=== PATIENT | female | born 1945 | race Caucasian/White ===

== ENCOUNTER 2019-04-07 09:33 | Inpatient (IN) ==
[2019-04-07 11:50] LABS: BASO# 0.09 X1000 (0.0-0.2); BASO% 0.5 % (0.0-0.8); EOS# 0.35 X1000 (0.0-0.7); EOS% 1.8 % (0.0-10.0); HEMATOCRIT 30.3 % (37.0-47.0); HEMOGLOBIN 9.1 g/dL (12.0-16.0); IMM GRAN# 0.11 X1000 (0.0-0.04); IMM GRAN% 0.6 % (0.0-0.5); LYMPH# 0.72 X1000 (1.2-3.4); LYMPH% 3.8 % (20.5-51.1); MCH 23.5 PG (27-31); MCV 78.1 FL (81-99); MONO# 0.89 X1000 (0.11-0.59); MONO% 4.7 % (1.7-9.3); MPV 9.2 FL (7.4-10.4); NEUT# 16.81 X1000 (1.4-6.5); NEUT% 88.6 % (42.2-75.2); PLT 472 X1000 (130-400); RBC 3.88 XMIL (4.2-5.4); RDW 13.5 % (11.5-14.5); WBC 18.97 X1000 (4.8-10.8)
--- NOTE | 2019-04-07 11:53 | EKG Report ---
Test Performed on : 04/07/2019 10:48:29 AM Test Reason : SYNCOPE Blood Pressure : / mmHG Vent. Rate : 076 BPM Atrial Rate : 076 BPM P-R Int : 226 ms QRS Dur : 134 ms QT Int : 366 ms P-R-T Axes : 051 -52 082 degrees QTc Int : 411 ms Sinus rhythm. with 1st degree AV block. with occasional premature ventricular complexes. Left axis deviation Left bundle branch block Abnormal ECG When compared with ECG of 26-FEB-2018 14:06, premature ventricular complexes. are now present MO interval has increased Vent. rate has decreased BY 44 BPM Left bundle branch block is now present Unconfirmed Result
[2019-04-07 11:59] LABS: ACETONE SERUM NEGATIVE (NEGATIVE)
--- NOTE | 2019-04-07 12:00 | Diag Imaging Result Doc PS360 ---
EXAM: CHEST-PORTABLE HISTORY: SYNCOPE,FEVER TECHNIQUE: Single view COMPARISON: 02/26/2018 FINDINGS: Interval development of several lung nodules. There are also infiltrates in the lower right lung. Heart is mildly prominent. No pleural effusions identified. IMPRESSION: Lung nodules and infiltrates. A CT is recommended. Electronically signed by Warren Alberto 04/07/2019 11:58 AM
[2019-04-07 12:05] LABS: BE 1.4 mmoll (-2.0-2.0); BLOOD TYPE VENOUS; HCO3-(ACT) 24.6 mmoll (22-27); PCO2(98.6) 44 mmHg (40-60); PO2(98.6) 19 mmHg (30-55); SAMPLE BLOOD; SAO2 23.6 % (40.0-85.0); pH(98.6) 7.39 (7.32-7.43)
[2019-04-07 12:07] LABS: AGAP 14; ALBUMIN 3.3 g/dL (3.5-5.0); ALKALINE PHOSPHATASE 144 U/L (32-104); BUN 45 mg/dL (8-22); CALCIUM 9.5 mg/dL (8.8-10.2); CHLORIDE 99 mmol/L (98-107); COSMO 304; ESTIMATED GFR 24; GOT 14 U/L (10-30); GPT 14 U/L (10-36); POTASSIUM 5.5 mmol/L (3.5-5.1); SODIUM 137 mmol/L (136-145); TCO2 24 mmol/L (25-35); TOTAL BILIRUBIN 0.17 mg/dL (0.20-1.00); TOTAL PROTEIN 6.6 g/dL (6.3-8.3)
[2019-04-07 12:22] LABS: GLUCOSE 423 mg/dL (70-104)
[2019-04-07] MEDS ORDERED: ROCEPHIN 1 GM in NS 50 ML IV ONE (12:35)
[2019-04-07] MEDS ORDERED: ZITHROMAX PO ONE (12:35)
[2019-04-07] MEDS ORDERED: HUMULIN R SUBQ ONE (12:35)
[2019-04-07] MEDS ORDERED: NS 500 ML IV ONE (12:36)
[2019-04-07 12:58] LABS: URINE SOURCE CLEAN CATCH
[2019-04-07 13:11] LABS: BILIRUBIN URINE NEGATIVE (NEGATIVE); BLOOD URINE NEGATIVE (NEGATIVE); COLOR YELLOW; GLUCOSE URINE >1000 mg/dL (NEGATIVE); KETONE URINE NEGATIVE (NEGATIVE); LEUKOCYTES URINE NEGATIVE (NEGATIVE); NITRITE URINE NEGATIVE (NEGATIVE); PROTEIN URINE TRACE mg/dL (NEGATIVE); TURBIDITY URINE CLEAR (CLEAR); UROBILINOGEN URINE NORMAL (NORMAL)
[2019-04-07 13:12] LABS: UR EPITHELIAL CELLS <10 /HPF (<10); URINE BACTERIA NEGATIVE /HPF; URINE RBC <10 /HPF (<10); URINE WBC <10 /HPF (<10)
[2019-04-07 13:33] LABS: UR AMPHETAMINES QUAL NONE DETECTED (NONE DETECT); UR BARBITUATES QUAL NONE DETECTED (NONE DETECT); UR BENZODIAZEPIN QUAL NONE DETECTED (NONE DETECT); UR CANNABINOIDS QUAL NONE DETECTED (NONE DETECT); UR COCAINE QUAL NONE DETECTED (NONE DETECT); UR METHADONE QUAL NONE DETECTED (NONE DETECT); UR OPIATES QUAL NONE DETECTED (NONE DETECT); UR OXYCODONE QUAL NONE DETECTED (NONE DETECT); UR PCP QUAL NONE DETECTED (NONE DETECT)
--- NOTE | 2019-04-07 14:20 | PROVIDER DOCUMENTATION ---
This chart was entered by Jess Beach Scribe, acting as scribe for Po Ibarra MD. HPI-Syncope/Dizziness - General Chief Complaint: Near Syncope Stated Complaint: WEAKNESS Time Seen by Provider: 04/07/19 11:24 Source: patient Allergies/Adverse Reactions: Patient Allergies Allergy/AdvReac Type Severity Reaction Status Date / Time No Known Allergies Allergy Verified 02/26/18 13:58 Home Medications: Home Medication List Medication Instructions Recorded Confirmed Last Taken Type Aspirin [Aspir-Low] 1 tab PO DAILY 10/17/17 02/27/18 02/27/18 05:15 History Cholecalciferol (Vit D3) [Vitamin 5,000 unit PO DAILY 10/17/17 02/27/18 02/27/18 05:15 History D] Levothyroxine [Synthroid] 200 microgm PO DAILY 10/17/17 02/27/18 02/27/18 05:15 History Simvastatin 20 mg PO HS 10/17/17 02/27/18 02/26/18 20:00 History Furosemide [Lasix] 40 mg PO DAILY #30 tab 10/22/17 02/27/18 02/27/18 05:30 Rx Cyanocobalamin (Vitamin B-12) 1,000 mcg PO BID 11/13/17 02/27/18 02/27/18 05:15 History [Vitamin B12] Isosorbide Dinitrate [Isordil] 20 tab PO TID 11/13/17 02/27/18 02/27/18 05:15 History Hydralazine [Apresoline] 25 mg PO TID 11/30/17 02/27/18 02/27/18 05:15 History Digoxin 125 mcg PO DAILY 01/21/18 02/27/18 02/27/18 05:15 History Spironolactone 0.5 tab PO DAILY 01/21/18 02/27/18 02/27/18 05:20 History Glipizide [Glucotrol] 5 mg PO DAILY 01/22/18 02/27/18 02/27/18 05:15 History Clobetasol Propionate/Emoll 15 gm TP BID 02/26/18 02/27/18 02/27/18 05:15 History [Clobetasol Emollient 0.05% Crm] Carvedilol [Coreg] 3.125 mg PO BID #60 tablet 02/27/18 Unknown Rx - History of Present Illness-Syncope/Dizzy Nature of Presenting Problem: Patient is a 74 year old female who presents to the ED via EMS after having a syncopal episode. Patient states she was sitting on the toilet and started to get lightheaded. Patient's states patient had a few seconds of LOC. Denies falling. Patient reports having cough and nasal drainage for the last month. Prior Episodes: reports: single episode today Onset/Duration: reports: this morning Timing: reports: gone now Position/Activity at time of episode: reports: sitting Symptoms prior to episode: reports: lightheaded Context: reports: lost consciousness Loss of Consciousness: brief (seconds) Location of injury. (If syncope resulted in an injury.): reports: none Current Symptoms: reports: none/feels normal Recently Seen Here or By Another Healthcare Provider: No Review of Systems - Adult - REVIEW OF SYSTEMS - ADULT Constitutional: reports: no symptoms reported. denies: chills, fever, fatique Eyes: reports: no symptoms reported Ears, Nose, Mouth & Throat: reports: see HPI, sinus problem (drainage). denies: ear pain, nose pain, throat pain Cardiovascular: reports: no symptoms reported Respiratory: reports: see HPI, cough. denies: shortness of breath, wheezing Gastrointestinal: reports: no symptoms reported Genitourinary: reports: no symptoms reported Musculoskeletal: reports: no symptoms reported Integumentary: reports: no symptoms reported Neurological: reports: no symptoms reported Psychiatric: reports: no symptoms reported Endocrine: reports: no symptoms reported Hematologic/Lymphatic: reports: no symptoms reported Allergic/Immunologic: reports: no symptoms reported All Other Systems: Reviewed and Negative Past History - Adult - PAST MEDICAL HISTORY-ADULT Review of Records: reports: Old Records Reviewed, Social history reviewed & non- contributory. Major Childhood Illnesses: reports: denies history Cardiovascular: reports: CHF, HTN Respiratory: reports: denies history Gastrointestinal: reports: denies history Obstetrical/Gynecological: reports: denies history Genitourinary: reports: denies history Musculoskeletal: reports: denies history Neurological: reports: denies history Endocrine/Immune: reports: Diabetes, thyroid disorder Other Conditions: reports: denies history - PRIOR SURGERIES/PROCEDURES Surgical/Procedure History: reports: reviewed, not pertinent, tonsillectomy - IMMUNIZATION STATUS Childhood Immunizations: See Nurse Assessment Flu Vaccine: See Nurse Assessment - FAMILY HISTORY Family History: reviewed, not pertinent - SOCIAL HISTORY Smoking: denies Substance Use: denies Living Situation: family Physical Exam-General - PHYSICAL EXAM-ADULT Initial Vital Signs Reviewed: Yes - CONSTITUTIONAL General Appearance: alert, no apparent distress. negative: lethargic - EYES Eyes: PERRL/EOMI - HEAD, EARS, NOSE, MOUTH & THROAT HENMT: normocephalic/atraumatic, moist mucous membranes. negative: angioedema - NECK Neck: full range of motion, supple - RESPIRATORY Respiratory: chest non-tender, lungs clear, normal breath sounds. negative: crackles, wheezing - CARDIOVASCULAR Cardiovascular: normal peripheral pulses, regular rate, rhythm. negative: tachycardia - GASTROINTESTINAL (ABDOMEN) Abdominal Exam: normal bowel sounds, non tender, soft. negative: guarding - MUSCULOSKELETAL Extremity: non-tender, normal inspection. negative: deformity, erythema, swelling - SKIN Integumentary: normal color, normal turgor, warm/dry. negative: diaphoresis, jaundice, rash - NEUROLOGIC Neurologic: rn wound care II-XII nml as tested, grossly normal. negative: aphasia, facial droop - PSYCHIATRIC Psych/Mental Status: normal mood/affect, oriented x 3. negative: anxious Progress - PLAN OF CARE/RESULTS Progress/Plan/Lab Results: Vital Signs - 8 hr 04/07/19 10:04 04/07/19 10:05 04/07/19 10:10 Temperature 98.1 F Pulse Rate 82 Respiratory Rate 17 Blood Pressure 107/39 107/39 O2 Sat by Pulse Oximetry 98 98 98 04/07/19 10:15 04/07/19 10:30 04/07/19 10:45 Temperature Pulse Rate Respiratory Rate Blood Pressure O2 Sat by Pulse Oximetry 98 98 93 L 04/07/19 11:00 04/07/19 11:15 04/07/19 11:30 Temperature Pulse Rate 77 75 79 Respiratory Rate 13 20 22 Blood Pressure O2 Sat by Pulse Oximetry 97 98 98 04/07/19 11:45 04/07/19 12:00 04/07/19 12:15 Temperature Pulse Rate 68 74 75 Respiratory Rate 18 20 14 Blood Pressure O2 Sat by Pulse Oximetry 99 98 100 04/07/19 12:30 04/07/19 12:45 04/07/19 13:00 Temperature Pulse Rate 77 77 75 Respiratory Rate 28 H 15 21 Blood Pressure O2 Sat by Pulse Oximetry 97 99 98 04/07/19 13:15 04/07/19 13:30 04/07/19 13:45 Temperature Pulse Rate 76 78 75 Respiratory Rate 14 19 19 Blood Pressure O2 Sat by Pulse Oximetry 100 99 100 04/07/19 13:55 Temperature Pulse Rate 77 Respiratory Rate 20 Blood Pressure 122/48 O2 Sat by Pulse Oximetry 98 Laboratory Results - last 24 hr 04/07/19 04/07/19 04/07/19 11:22 11:25 11:25 WBC 18.97 H RBC 3.88 L Hgb 9.1 L Hct 30.3 L MCV 78.1 L MCH 23.5 L MCHC 30.0 L RDW Std Deviation 13.5 Plt Count 472 H MPV 9.2 Immature Gran % (Auto) 0.6 H Neut % (Auto) 88.6 H Lymph % (Auto) 3.8 L Barren % (Auto) 4.7 Eos % (Auto) 1.8 Baso % (Auto) 0.5 Immature Gran # (Auto) 0.11 H Neut # (Auto) 16.81 H Lymph # (Auto) 0.72 L Barren # (Auto) 0.89 H Eos # (Auto) 0.35 Baso # (Auto) 0.09 Specimen Type VBG pH VBG pCO2 VBG pO2 VBG HCO3 VBG O2 Saturation VBG Base Excess VBG Lactate Sodium 137 Potassium 5.5 H Chloride 99 Carbon Dioxide 24 L Anion Gap 14 BUN 45 H Creatinine 2.0 H Estimated GFR/1.73 m2 24 BUN/Creatinine Ratio 23 Glucose 423 H* POC Glucose 384 H Calculated Osmolality 304 Calcium 9.5 Total Bilirubin 0.17 L AST 14 ALT 14 Alkaline Phosphatase 144 H Total Protein 6.6 Albumin 3.3 L Globulin 3.3 Albumin/Globulin Ratio 1.0 Urine Source Urine Color Urine Turbidity Urine pH Ur Specific Desmet Urine Protein Ur Glucose (Stick) Ur Ketones (Stick) Urine Blood Urine Nitrite Urine Bilirubin Urobilinogen Dipstick Urine Leukocytes Urine WBC (Auto) Urine RBC (Auto) U Epithel Cells (Auto) Urine Bacteria (Auto) Urine Opiates Screen Ur Oxycodone Screen Ur Methadone, Qual Ur Barbiturates Screen Ur Phencyclidine Scrn Ur Amphetamines Screen U Benzodiazepines Scrn Urine Cocaine Screen U Cannabinoids Screen Acetone Level NEGATIVE 04/07/19 04/07/19 04/07/19 11:56 12:43 12:43 WBC RBC Hgb Hct MCV MCH MCHC RDW Std Deviation Plt Count MPV Immature Gran % (Auto) Neut % (Auto) Lymph % (Auto) Barren % (Auto) Eos % (Auto) Baso % (Auto) Immature Gran # (Auto) Neut # (Auto) Lymph # (Auto) Barren # (Auto) Eos # (Auto) Baso # (Auto) Specimen Type VENOUS VBG pH 7.39 VBG pCO2 44 VBG pO2 19 L VBG HCO3 24.6 VBG O2 Saturation 23.6 L VBG Base Excess 1.4 VBG Lactate 2.00 Sodium Potassium Chloride Carbon Dioxide Anion Gap BUN Creatinine Estimated GFR/1.73 m2 BUN/Creatinine Ratio Glucose POC Glucose Calculated Osmolality Calcium Total Bilirubin AST ALT Alkaline Phosphatase Total Protein Albumin Globulin Albumin/Globulin Ratio Urine Source CLEAN CATCH Urine Color YELLOW Urine Turbidity CLEAR Urine pH 6.0 Ur Specific Desmet 1.020 Urine Protein TRACE A Ur Glucose (Stick) >1000 A Ur Ketones (Stick) NEGATIVE Urine Blood NEGATIVE Urine Nitrite NEGATIVE Urine Bilirubin NEGATIVE Urobilinogen Dipstick NORMAL Urine Leukocytes NEGATIVE Urine WBC (Auto) <10 Urine RBC (Auto) <10 U Epithel Cells (Auto) <10 Urine Bacteria (Auto) NEGATIVE Urine Opiates Screen NONE DETECTED Ur Oxycodone Screen NONE DETECTED Ur Methadone, Qual NONE DETECTED Ur Barbiturates Screen NONE DETECTED Ur Phencyclidine Scrn NONE DETECTED Ur Amphetamines Screen NONE DETECTED U Benzodiazepines Scrn NONE DETECTED Urine Cocaine Screen NONE DETECTED U Cannabinoids Screen NONE DETECTED Acetone Level Orders Category Date Time Status Cardiac Monitoring DIRECTED Care 04/07/19 11:38 Active Nursing- Obtain EKG ONCE Care 04/07/19 10:35 Active Saline Loc NOW Care 04/07/19 11:38 Active CHEST-PORTABLE [RAD] Stat Exams 04/07/19 11:39 Completed ACETONE SERUM [CHEM] Stat Lab 04/07/19 11:25 Completed BLOOD CULTURE [BLDCUL] Stat Lab 04/07/19 11:38 Ordered CBC WITH ELECTRONIC DIFF [HEME] Stat Lab 04/07/19 11:25 Completed COMPREHENSIVE METABOLIC PANEL [CHEM] Stat Lab 04/07/19 11:25 Completed URINALYSIS W/POSS RFLX CULT [URINALYSIS] Stat Lab 04/07/19 12:43 Completed URINE DRUG SCREEN Stat Lab 04/07/19 12:43 Completed VENOUS BLOOD GAS [RESP] Routine Lab 04/07/19 11:56 Completed 0.9% Sodium Chloride Inj [Ns] 500 ml Med 04/07/19 12:36 Discontinued IV 999 mls/hr Azithromycin [Zithromax] Med 04/07/19 12:35 Discontinued 500 mg PO NOW ONE CefTRIAXONE [Rocephin] 1 gm Med 04/07/19 12:35 Discontinued 0.9% Sodium Chloride Inj [Ns] 50 ml IV NOW Insulin Human Regular [Humulin R] Med 04/07/19 12:35 Discontinued 3 unit SUBQ NOW ONE EKG [EKG] Stat Ther 04/07/19 11:38 Draft Result Diagrams: 04/07/19 11:25 04/07/19 11:25 - EKG 1 Time of EKG reading by physician:: 10:48 EKG Read and Signed by:: Po Ibarra EKG Interpretation (*Must complete 3 of following elements*): Abnormal (rhythm - sinus rhythm with 1st degree AV block with occasional premature ventricular complexes) Rate: 76 [place]: left QRS: LBB Comments: abnormal ECG - XRAY 1 XRAY Study: Chest Impression: See EMR Report (EXAM: CHEST-PORTABLE HISTORY: SYNCOPE,FEVER TECHNIQUE: Single view COMPARISON: 02/26/2018 FINDINGS: Interval development of several lung nodules. There are also infiltrates in the lower right lung. Heart is mildly prominent. No pleural effusions identified. IMPRESSION: Lung nodules and infiltrates. A CT is recommended. Electronically signed by Warren Alberto 04/07/2019 11:58 AM 04/07/19 1158 Interpreting Physician: Warren Alberto MD Dictated Date/Time: 04/07/19 1159 cc: Po Ibarra MD; Jarred Rivera MD) - CONSULTS/PCP/HOSPITALIST Notification #1 *Consult/PCP/Hospitalist*: AMANDA Arreguin for Hospitalist Time Discussed: 14:03 Reason/Comments: Dr. Ibarra consulted with Kallie about patient Consult Disposition: Will see in ED, Admit (to HOSPITALIST SERVICE) Departure - Departure Date of Disposition Decision: 04/07/19 Time of Disposition Decision: 14:03 DIAGNOSIS: Pneumonia, Pulmonary nodules/lesions, multiple, Renal insufficiency, Leukocytosis, Anemia Disposition: ADMITTED INPATIENT 09 Certified Medical Emergency: Emergent Condition: Stable Referrals and Follow-Ups: Jarred Rivera MD [Primary Care Provider] - - Critical Care Note This patient required my direct & personal management of CC.: No Attestation - Physician/ KARTIK Attestation The physician spent face to face time with patient:: Yes Advanced Practice Provider documentation review:: Supervising physician onsite and consulted in the evaluation and care of this patient. The physician did have a face to face encounter with the patient. This chart was documented by the indicated scribe, (Jess Beach Scribe) and accurately reflects the services I performed and decisions made by me, Po Ibarra MD, as attested by the provider's signature.
[2019-04-07] MEDS: HUMALOG SUBQ SCH ×2 (16:00→21:37)
--- NOTE | 2019-04-07 17:57 | HISTORY AND PHYSICAL ---
HISTORY OF PRESENT ILLNESS: She was apparently sitting on the commode and was about to drink some [employer] Buc[employer] breakfast and the next thing she knew it was all over her lap. She does not remember. Her think she passed out for a very short time. Denied any tonic- clonic activity. Denied any focal neurologic problems. Did not notice any incontinence of bowel or bladder. No complaints of chest pain. She does not have any memory of the passing out. When she came to, she seemed to be fine. They brought her to the emergency room. PAST MEDICAL HISTORY: 1. Diabetes mellitus type 2. 2. Hyperlipidemia. 3. Hypertension. PAST SURGICAL HISTORY: I think the only surgery she has had is she had adenoidectomy when she was 17. ALLERGIES: No known drug allergies. FAMILY HISTORY: She does not know of any significant family history. Both of her parents had diabetes. SOCIAL HISTORY: Negative for alcohol or tobacco. Very attentive family. She lives in [place]. REVIEW OF SYSTEMS: General: No weight gain or loss. No fever or chills. HEENT: Unremarkable. No change in visual or hearing acuity. Respiratory: No increased work of breathing or dyspnea. Cardiovascular: No chest pain or tachy palpitation GI/: Unremarkable. Musculoskeletal/Neurologic: No focal complaints. PHYSICAL EXAMINATION: VITAL SIGNS: Temp 98.1 degrees, pulse 77, respirations 16, blood pressure 112/52. Height 5 feet 8 inches. HEENT: Pupils are equal and round. No rashes in oral or nasal mucosa. NECK: Supple. No thyromegaly. LUNGS: Clear in all lung [place]. CARDIOVASCULAR: Regular rhythm and rate without murmur or S3. Monitor appears to be in sinus rhythm. ABDOMEN: Soft. SKIN: Warm and dry. No skin rashes. LABORATORY DATA: White count is 18,970, hematocrit is 30, hemoglobin 9.1, platelet count 472,000. Sodium 137, potassium 5.5, chloride 99, BUN 45, creatinine 2.0, blood sugar 423, calcium was 9.5. AST 14, ALT 14, albumin 3.3. Urinalysis unremarkable. Negative acetone. Negative for opioids, oxycodone, methadone, barbiturates, phencyclidine, amphetamines, and benzodiazepines. Urinalysis was unremarkable. Venous blood gas, pH was 7.39, pCO2 44, PO2 was 19. Chest x-ray: There were some lung nodules and infiltrates appreciated and CT was recommended. She has complained of a cough now for a couple weeks and she was planning on going to the clinic. I think she saw Dr. Rivera about the cough this morning. ASSESSMENT AND PLAN: 1. Questionable syncopal episode or near syncopal episode. It sounds like she had a very short episode of syncope. Most likely it is vasovagal. She did not have heavy coughing this morning where during the episode and she was not straining hard on the commode, so we will watch. Will watch her blood pressure. We will check orthostatics. We will check blood pressure lying down, sitting up, and standing every shift. In looking at her home medications, her blood pressure is kind of marginal. Apparently, she takes hydralazine 1.5 tablets. I am not sure if that is a 50 or 25 mg tablet. We may need to back down on that. She is not on an DEEPTI inhibitor. 2. Diabetes mellitus. Sugars are elevated at this time, I think secondary to stress. We will follow pattern sugars. She is on glipizide 5 mg just once a day and we may want to consider adding metformin to that regimen, but she is on Lantus SoloStar 40 units subcu q.a.m. and then 20 units q.p.m. We will continue that for now. Put her on a diabetic diet. 3. History of congestive heart failure. I do not know the degree of that. In looking back on echocardiogram, she had an echocardiogram with Doppler in October 2017 and at that time aortic valve normal, mitral valve normal, tricuspid valve normal, pulmonic valve normal. There was no aortic stenosis. There was a mildly dilated left ventricle with systolic ejection fraction estimated at 35 to 40% and she had mild left ventricular hypertrophy and global hypokinesis. So, apparently she does have congestive heart failure with reduced ejection fraction. 4. She has chronic kidney disease. I see a CT scan looking at renal function, it was a negative exam; that was back on 10/18/2017. Her creatinine is 2.0. In looking back, that has been her baseline starting in September 2017. She had a creatinine of 0.8 back in the early part of September of 2015. Dr. Gilman is following her for that. Her volume status and electrolytes look good and I do not see any significant acidosis. 5. We will ask Pulmonary, at her request, to look for this chronic cough and the pulmonary nodules seen on the chest x-ray. I assume we probably need to pursue a CT scan. We probably ought to do it without contrast at this point because of her creatinine. cc: Carson Garnica MD
[2019-04-07] MEDS ORDERED: ROBITUSSIN-DM PO PRN (19:27)
[2019-04-07] MEDS: ZOCOR PO SCH (21:01)
[2019-04-07] MEDS: COREG PO SCH (21:02)
[2019-04-07] MEDS: LANTUS INSULIN SUBQ SCH (21:02)
--- NOTE | 2019-04-07 22:47 | Diag Imaging Result Doc PS360 ---
CT THORAX W/O CONTRAST - 04/07/2019 INDICATION: lung nodule on cxr COMPARISON: Prior chest x-rays FINDINGS: There is a large subcarinal mass in the mediastinum. This measures 7.2 x 10 cm in AP and lateral dimensions. There are numerous large pulmonary nodules bilaterally, measuring up to 3.2 cm. There are at least 40 nodules in each lung. There is moderate enlargement of the thyroid gland primarily the left lobe. The appearance here is indeterminate. Upper abdominal images are unremarkable. There are a couple of small sclerotic areas in the left humeral head. The appearance suggests benign entities such as old enchondromas. No acute bony lesions. IMPRESSION: Advanced, metastatic primary lung cancer. This exam was performed using automated exposure control, adjustment of mA or kV according to patient size, and/or use of iterative reconstruction technique Electronically signed by Gaston Yan 04/07/2019 10:44 PM
[2019-04-08] MEDS: HUMALOG SUBQ SCH ×4 (06:09→21:33)
[2019-04-08 07:46] LABS: BASO% 0.7 % (0.0-0.8)
[2019-04-08 08:17] LABS: FREE T4 1.41 ng/dL (0.93-1.70); TSH 0.06 uIUmL (0.27-4.20)
[2019-04-08 08:29] LABS: ALB/GLOB RATIO 0.8; ALBUMIN 3.2 g/dL (3.5-5.0); CALCIUM 9.6 mg/dL (8.8-10.2); CREATININE 1.7 mg/dL (0.5-0.9); POTASSIUM 4.7 mmol/L (3.5-5.1); TOTAL BILIRUBIN 0.28 mg/dL (0.20-1.00)
[2019-04-08 08:55] LABS: BASO# 0.12 X1000 (0.0-0.2); EOS# 0.69 X1000 (0.0-0.7); HEMATOCRIT 29.9 % (37.0-47.0); IMM GRAN# 0.08 X1000 (0.0-0.04); IMM GRAN% 0.5 % (0.0-0.5); LYMPH# 1.15 X1000 (1.2-3.4); LYMPH% 6.6 % (20.5-51.1); MCH 23.7 PG (27-31); MCHC 30.1 g/dL (33-37); MCV 78.9 FL (81-99); MONO# 1.21 X1000 (0.11-0.59); MPV 9.6 FL (7.4-10.4); NEUT# 14.11 X1000 (1.4-6.5); NEUT% 81.2 % (42.2-75.2); PLT 503 X1000 (130-400); RBC 3.79 XMIL (4.2-5.4); RDW 13.7 % (11.5-14.5); WBC 17.36 X1000 (4.8-10.8)
[2019-04-08 09:17] LABS: BANDS 4 % (0-1); EOS 2 % (1-10); LYMPHS 18 % (21-51); MONO 4 % (1-9); NRBC 1 % (0-0); SEGS 72 % (42-75)
[2019-04-08] MEDS: ALDACTONE PO SCH (09:36)
[2019-04-08] MEDS: SYNTHROID PO SCH (09:37)
[2019-04-08] MEDS: LANTUS INSULIN SUBQ SCH ×2 (09:37→21:33)
[2019-04-08] MEDS: ZITHROMAX PO SCH (09:37)
[2019-04-08] MEDS: LANOXIN PO SCH (09:37)
[2019-04-08] MEDS: LASIX PO SCH (09:37)
[2019-04-08] MEDS: ISORDIL PO SCH ×3 (09:37→18:54)
[2019-04-08] MEDS: ASPIRIN EC PO SCH (09:37)
[2019-04-08] MEDS: ROCEPHIN 1 GM in NS 50 ML IV SCH (13:49)
[2019-04-08] MEDS: COREG PO SCH ×2 (13:49→21:34)
--- NOTE | 2019-04-08 15:45 | PROGRESS NOTE ---
DATE: 04/08/2019 SUBJECTIVE: Patient has no major complaints. OBJECTIVE: Blood pressure is 109/48, heart rate of 85, respiratory rate 21, temperature was 97.4 degrees.Cardiovascular: Regular rate and rhythm. Pulmonary: Bilateral breath sounds. Clear to auscultation. GI: Soft, nontender, nondistended. Bowel sounds are positive. LABORATORY DATA: White count 17, hemoglobin and hematocrit 9, 29, platelets 503,000. Creatinine is 1.7, glucose is 212, A1c is 10. Her TSH is very low but her free T4 is normal so may have sick euthyroid. Her chest CT shows advanced metastatic primary lung cancer. She has a large subcarinal mass 7 x 10 cm and pulmonary nodules 40 nodules in each lung and 3.2 cm liver mets so most likely she has primary lung cancer with metastases. We will continue treatment. I greatly appreciate Dr. Graves's input. He is going to go for bronch and biopsy tomorrow. Diabetes. Will continue regular medications and follow closely. DISPOSITION: Pending clinical status. She does not look ill, so may be able to complete some workup as an outpatient. cc: Ace Jensen MD [facility]
[2019-04-08] MEDS ORDERED: TYLENOL PO PRN (19:32)
--- NOTE | 2019-04-08 19:45 | PULMONOLOGY CONSULTATION ---
DATE: 04/08/2019 REQUESTING PHYSICIAN: Dr. Carson Garnica. REASON FOR CONSULTATION: Bilateral pulmonary nodules. HISTORY OF PRESENT ILLNESS: Ms. Edmonds is a 74-year-old, white female, never smoker, history of diabetes mellitus, who presented to the emergency room yesterday with a syncopal or near syncopal episode. The patient reports she was feeling lightheaded while sitting on the toilet and her gave her a supplement drink. She either became syncopal or nodded off and dropped the drink. She remained weak and was subsequently brought to the hospital. Chest x-ray was performed in the emergency room, which revealed new bilateral nodules. CT scan of the thorax was performed and will be reviewed below. As mentioned above, the patient is a never smoker. She denies prior pulmonary history. Review of her medical history indicates she has lost about 40 pounds over the last year. PAST MEDICAL HISTORY: 1. History of nonischemic cardiomyopathy. 2. Diabetes mellitus with poor control. 3. Hypertension. 4. Dyslipidemia. 5. Chronic renal insufficiency. SOCIAL HISTORY: She is . Her and family are at the bedside. No alcohol or tobacco use. FAMILY HISTORY: Positive for diabetes and vascular disease. No lung history is reported. REVIEW OF SYSTEMS: Notable for a chronic cough for the last month, weakness, weight loss. PHYSICAL EXAMINATION: General: A well-developed, well-nourished, white female in no distress. Blood pressure 109/48, heart rate 85, respiratory rate 21, oxygen saturation 97%. HEENT: Pupils are equal and reactive. Oropharynx is clear. Neck: Supple. Chest: Diminished breath sounds at right base. Cardiac: S1-S2. Abdomen: Soft. Extremities: Without edema. LABORATORIES: White blood count 17.36, hemoglobin 9.0, platelet count 503,000. Sodium 138, potassium 4.7, chloride 101, bicarbonate 23, BUN 39, creatinine 1.7, glucose 212. Hemoglobin A1c 10.0. Carcinoembryonic antigen is elevated at 34. TSH is low at 0.6. IMPRESSION: A 74-year-old with: 1. Large right hilar lung mass with diffuse bilateral nodules. 2. Elevated CEA level/tumor marker. 3. Leukocytosis. 4. Diabetes mellitus with poor control. 5. Abnormal weight loss. 6. Chronic renal insufficiency. 7. Iatrogenic hyperthyroidism with normal free T4. RECOMMENDATIONS: 1. We will proceed with bronchoscopy with endobronchial biopsy of the right lower lobe tomorrow. This airway segment appears to be completely obstructed by tumor. 2. Consider/recommend CT scan of the brain. 3. Consider decreasing thyroid replacement medication given low TSH. 4. Anticipate the need for an Oncology evaluation. cc: Todd Graves MD
[2019-04-08] MEDS: DESYREL PO PRN (21:34)
[2019-04-08] MEDS: KLONOPIN PO SCH (21:34)
[2019-04-08] MEDS: ZOCOR PO SCH (21:34)
[2019-04-09] MEDS: HUMALOG SUBQ SCH ×4 (06:04→21:29)
[2019-04-09] MEDS ORDERED: DIPRIVAN 1% ONE (06:40)
[2019-04-09] MEDS ORDERED: XYLOCAINE 2% ONE (06:40)
[2019-04-09] MEDS ORDERED: EPINEPHRINE ONE (06:40)
[2019-04-09] MEDS ORDERED: XYLOCAINE 2% VISCOUS ONE (06:40)
[2019-04-09] MEDS ORDERED: SODIUM CHLORIDE 0.9% 20 ML ONE (06:40)
[2019-04-09] MEDS ORDERED: XYLOCAINE-MPF 2% ONE (07:28)
[2019-04-09] MEDS ORDERED: VERSED ONE (07:29)
[2019-04-09 09:16] LABS: BASO# 0.11 X1000 (0.0-0.2); BASO% 0.7 % (0.0-0.8); EOS# 0.74 X1000 (0.0-0.7); EOS% 4.4 % (0.0-10.0); HEMATOCRIT 30.1 % (37.0-47.0); HEMOGLOBIN 9.2 g/dL (12.0-16.0); IMM GRAN# 0.08 X1000 (0.0-0.04); IMM GRAN% 0.5 % (0.0-0.5); LYMPH# 1.08 X1000 (1.2-3.4); LYMPH% 6.5 % (20.5-51.1); MCH 23.5 PG (27-31); MCHC 30.6 g/dL (33-37); MONO# 1.38 X1000 (0.11-0.59); MONO% 8.3 % (1.7-9.3); MPV 9.1 FL (7.4-10.4); NEUT# 13.26 X1000 (1.4-6.5); NEUT% 79.6 % (42.2-75.2); PLT 548 X1000 (130-400); RBC 3.91 XMIL (4.2-5.4); RDW 13.4 % (11.5-14.5); WBC 16.65 X1000 (4.8-10.8)
[2019-04-09 09:39] LABS: CALCIUM 9.6 mg/dL (8.8-10.2); CREATININE 1.9 mg/dL (0.5-0.9); POTASSIUM 4.4 mmol/L (3.5-5.1)
--- NOTE | 2019-04-09 10:04 | Diag Imaging Result Doc PS360 ---
EXAM: CT HEAD W/O CONTRAST 04/09/2019 HISTORY: multiple lung nodules TECHNIQUE: This exam was performed using automated exposure control, adjustment of mA or kV according to patient size, and/or use of iterative reconstruction technique. COMMENT: There is no evidence of mass effect, bleed, or abnormal extra-axial fluid collection. There is ill-defined lucency present in the subcortical and periventricular white matter on the right just above the sylvian fissure. Note should be made that small metastases may not be visible on a noncontrast study. For this purpose MRI with contrast is recommended. There is hyperostosis frontalis interna. The calvarium appears to be intact. There is no evidence of acute paranasal sinus disease. IMPRESSION: The possibility of cerebral metastases cannot be entirely excluded on the basis of this study. Probable chronic ischemic microvascular changes. Advise further evaluation with MRI. Electronically signed by Damion Bello 04/09/2019 10:02 AM
--- NOTE | 2019-04-09 12:26 | OPERATIVE NOTE ---
PROCEDURE DATE: PROCEDURE PERFORMED: Bronchoscopy. CLINICAL INDICATIONS: Right hilar mass with bilateral pulmonary nodules/masses. PROCEDURE: The patient was identified in the inpatient holding area. All of her questions were answered. The patient was transferred to the endoscopy procedure room. Prior to the procedure, she received nebulized lidocaine along with viscous lidocaine to the right and left nostrils. Prior to the procedure, a time-out was performed. All agreed with the procedure, including the patient. Her name and birthday were confirmed. Indications for the procedure were reviewed, and all agreed with the procedure. When topical anesthesia and sedation were achieved, bronchoscope was placed in the right nostril. Due to the narrow passages, bronchoscope could not be advanced. Bronchoscope was moved to the left side. Bronchoscope could be advanced through the left nostril to the level of the vocal cords. Vocal cords were smooth and without lesions. Bronchoscope was advanced through the vocal cords, into the trachea. Trachea was without lesions. Airways to the left upper lobe lingula and left lower lobe were patent and without lesions. A tumor was seen, which completely obstructed the entrance to the right middle lobe and right lower lobe. This had a necrotic appearance. Images were obtained. Airways to the right upper lobe were patent. Bronchoscope was directed back to the tumor. Multiple biopsies were taken from the tumor until bleeding could be seen with the biopsies, indicating viable tumor. The tumor appeared to be on a stalk, but the bronchoscope could not be advanced around the tumor. The patient tolerated the procedure without difficulty. IMPRESSION: Large, necrotic-appearing mass blocking the entrance of the airway to the right middle lobe and to the right lower lobe. Biopsies were obtained as per above. cc: Todd Graves MD
[2019-04-09] MEDS: ASPIRIN EC PO SCH (12:31)
[2019-04-09] MEDS: LANTUS INSULIN SUBQ SCH ×2 (12:32→21:28)
[2019-04-09] MEDS: LASIX PO SCH (12:54)
[2019-04-09] MEDS: LANOXIN PO SCH (12:54)
[2019-04-09] MEDS: ALDACTONE PO SCH (12:54)
[2019-04-09] MEDS: COREG PO SCH ×2 (12:54→21:32)
[2019-04-09] MEDS: ZITHROMAX PO SCH (12:54)
[2019-04-09] MEDS: ISORDIL PO SCH ×3 (12:55→17:56)
[2019-04-09] MEDS: SYNTHROID PO SCH (12:55)
[2019-04-09] MEDS: KLONOPIN PO SCH ×2 (12:55→21:27)
--- NOTE | 2019-04-09 13:15 | Diag Imaging Result Doc PS360 ---
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 COMMENT: There are multiple punctate areas of increased T2-weighted signal intensity throughout the white matter of both hemispheres. There are larger areas of increased T2-weighted signal intensity present in the right parietal white matter and left centrum semiovale ovale. There is no evidence of bleed. There are ring-enhancing lesions associated with the areas of increased T2-weighted signal intensity described above in the parietal lobes bilaterally. The right-sided lesion measures less than 7 mm and the left-sided lesion is less than 5 mm, both being at the heart-white junction. This is consistent with metastatic disease. There is no evidence of restricted diffusion. There is hyperostosis frontalis interna and calcification in the falx. IMPRESSION: Bilateral parietal lobe metastases with mild vasogenic edema. Electronically signed by Damion Bello 04/09/2019 1:12 PM
[2019-04-09] MEDS: ROCEPHIN 1 GM in NS 50 ML IV SCH (14:00)
[2019-04-09] MEDS ORDERED: NS 1,000 ML IV ONE (18:35)
--- NOTE | 2019-04-09 21:21 | PROGRESS NOTE ---
DATE: 04/09/2019 SUBJECTIVE: The patient has no complaints. She is a little bit more relaxed. OBJECTIVE: Vital Signs: Blood pressure is 101/36, heart rate of 84, respiratory rate 14, temperature 99 degrees, 97% on room air. Cardiovascular: Regular rate and rhythm. Pulmonary: Bilateral breath sounds. Clear to auscultation. GI: Soft, nontender, nondistended. Bowel sounds are positive. Neurological: Nonfocal. LABORATORY DATA: White count is 16, hemoglobin and hematocrit 9 and 30, platelets 548,000. Creatinine is 1.9, glucose of 312. CA19-9 was normal or negative. CA-125 was negative. Her CEA is elevated at 34. Can be seen with bronchogenic adenocarcinoma, which is likely unfortunately. PROBLEM LIST: 1. Lung mass with pulmonary nodules, and now central nervous system metastases. We will continue treatment. I have consulted Dr. Spears and I am going to consult Dr. Beard because she will most likely need radiation therapy. We will go ahead and start steroids, although she is already very badly hyperglycemic, so we will have to adjust her insulin up. I do not have a tissue diagnosis yet, but with the fact that she had a necrotic mass on bronchoscopy and then central nervous system metastases, I think there is really no other way this is not cancer. 2. Possible pneumonia. She is empirically on antibiotics. We will continue to monitor. DISPOSITION: Pending her clinical status, we will finish her staging, bone scan, abdominal/pelvic CT tomorrow, and await oncology recommendations. cc: Ace Jensen MD
[2019-04-09] MEDS: ZOCOR PO SCH (21:28)
[2019-04-09] MEDS: DECADRON IV SCH (21:32)
[2019-04-10] MEDS: DECADRON IV SCH ×3 (03:32→19:21)
[2019-04-10] MEDS: HUMALOG SUBQ SCH ×6 (06:25→20:56)
--- NOTE | 2019-04-10 08:22 | Diag Imaging Result Doc PS360 ---
EXAM: CT ABD/PELVIS W/ORAL CONT ONLY 04/10/2019 HISTORY: lung cancer staging TECHNIQUE: This exam was performed using automated exposure control, adjustment of mA or kV according to patient size, and/or use of iterative reconstruction technique. COMMENT: The current study is compared with the thoracic CT of 04/07/2019 and the previous abdominal CT of 09/21/2015. There are multiple nodules present in the lower lobes, and right middle lobe consistent with metastatic disease which was also demonstrated at the time the previous study of 04/07/2019. There is atelectasis in the right lower lobe which has worsened since the previous examination. This abuts a infrahilar mass which was also demonstrated previously in the right lower lobe. There is a small amount of pleural fluid on the right. The adrenal glands are not enlarged. The spleen is not enlarged. There is some hyperdense material layering dependently in the gallbladder which may be due to milk of calcium bile or very small stones. There is a 3 mm calculus in the lower pole of the left collecting system. There is an apparent cortical cyst in the lower pole on the right side. Some perirenal stranding is present bilaterally. The pancreas is grossly normal in appearance. There are atherosclerotic calcifications in the aorta and iliac arteries without evidence of aneurysm. There is marked retroperitoneal adenopathy with a left para-aortic node measuring in excess of 2.3 cm in AP diameter. This was not the case on the previous examination of 09/21/2015. There is a fair amount of stool in the colon. The small bowel is not distended. There is apparent mesenteric adenopathy in the ileocolic region with some punctate calcifications. The largest such nodule is in excess of 2.5 cm in diameter. This was not the case on the previous study. There may be a mass in the cecum. There is suboptimal contrast opacification of the distal small bowel and none in the colon. There is a small nodule anterior to the cecum in the pelvis which may representing implant or mesenteric node measuring over 8 mm on image 123. Pelvis: There is a small amount of free fluid. The urinary bladder is slightly distended. There is severe degenerative change in both hips. There is degenerative facet arthropathy particularly at the L5-S1 level on the left. There are degenerative disc changes in the lumbar spine. IMPRESSION: Changes in the lung bases consistent with metastatic disease and possible primary malignancy in the right lower lobe as previously described. Marked retroperitoneal adenopathy. This enteric adenopathy in the ileocolic region. The possibility of a neoplastic mass in the ascending colon/cecum cannot be excluded. Electronically signed by Damion Bello 04/10/2019 8:20 AM
[2019-04-10] MEDS: ZITHROMAX PO SCH (08:55)
[2019-04-10] MEDS: KLONOPIN PO SCH ×2 (08:55→20:55)
[2019-04-10] MEDS: SYNTHROID PO SCH (08:55)
[2019-04-10] MEDS: ASPIRIN EC PO SCH (08:55)
[2019-04-10] MEDS: COREG PO SCH ×2 (08:56→20:55)
[2019-04-10] MEDS: LANOXIN PO SCH (08:56)
[2019-04-10] MEDS: LANTUS INSULIN SUBQ SCH ×2 (08:56→20:56)
[2019-04-10] MEDS: ISORDIL PO SCH ×3 (08:56→19:21)
[2019-04-10 10:21] LABS: BASO# 0.02 X1000 (0.0-0.2); BASO% 0.2 % (0.0-0.8); HEMATOCRIT 28.3 % (37.0-47.0); HEMOGLOBIN 8.6 g/dL (12.0-16.0); IMM GRAN# 0.06 X1000 (0.0-0.04); IMM GRAN% 0.5 % (0.0-0.5); LYMPH# 0.46 X1000 (1.2-3.4); LYMPH% 3.5 % (20.5-51.1); MCH 23.3 PG (27-31); MCHC 30.4 g/dL (33-37); MCV 76.7 FL (81-99); MONO# 0.23 X1000 (0.11-0.59); MONO% 1.7 % (1.7-9.3); MPV 9.1 FL (7.4-10.4); NEUT# 12.56 X1000 (1.4-6.5); NEUT% 94.1 % (42.2-75.2); PLT 473 X1000 (130-400); RBC 3.69 XMIL (4.2-5.4); RDW 13.1 % (11.5-14.5); WBC 13.33 X1000 (4.8-10.8)
[2019-04-10 10:57] LABS: CALCIUM 9.4 mg/dL (8.8-10.2); CREATININE 1.9 mg/dL (0.5-0.9); POTASSIUM 4.7 mmol/L (3.5-5.1)
[2019-04-10] MEDS: ROCEPHIN 1 GM in NS 50 ML IV SCH (12:57)
--- NOTE | 2019-04-10 14:02 | Diag Imaging Result Doc PS360 ---
EXAM: BONE SCAN, TOTAL BODY 04/10/2019 HISTORY: lung cancer TECHNIQUE: Bone scan, 28.8 mCi of technetium 99m MDP with whole body bone scan in the anterior and posterior projection COMMENT: There are no previous studies. There is some increased activity present in the cervical spine principally in the facet joints and anteriorly and inferiorly. There is slightly increased activity over the right hip compared to the left there is severe osteoarthritis seen on the CT of this date which is worse on the right than on the left. There is increased activity in the knees shoulders and tarsal region on the right which are also likely related to degenerative change. There is mildly increased activity present in what appears to be the L3-4 level. There is degenerative disc and facet disease at this level on the CT exam. IMPRESSION: Degenerative changes. No definite evidence of metastatic disease. Electronically signed by Damion Bello 04/10/2019 2:00 PM
[2019-04-10 16:16] LABS: CALCIUM 9.5 mg/dL (8.8-10.2); CREATININE 2.2 mg/dL (0.5-0.9); POTASSIUM 4.6 mmol/L (3.5-5.1)
--- NOTE | 2019-04-10 17:58 | PROGRESS NOTE ---
DATE: 04/10/2019 SUBJECTIVE: Patient reports feeling fine. Denies any fever or chills. OBJECTIVE: Vital Signs: Temperature 97.5 degrees, heart rate 63, respiratory rate 18, blood pressure 109/45, O2 saturation 97% on room air. General Examination: This is a chronically ill- appearing, 74-year-old female lying in bed, in no acute distress. Cardiovascular: S1, S2 heard. No murmurs, gallops, or rubs. Regular rate and rhythm. Respiratory: Clear bilaterally to auscultation. No work of breathing or using accessory muscles. Abdomen: Soft. Nontender to palpation. Bowel sounds present. No organomegaly. Extremities: No clubbing, cyanosis, or edema. Peripheral pulses present in both legs. Neurological: Patient is alert and oriented x3. Moves 4 extremities. LABORATORY DATA: White cell count 13.3, hemoglobin 8.6, hematocrit 28.3, platelets 473,000. BMP reveals a blood sugar 417. ASSESSMENT AND PLAN: 1. Lung cancer with pulmonary nodules and brain metastasis as well. Patient is being followed by Dr. Spears. Dr. Beard has been consulted as well. We will see what they have to say. The report from the abdomen and pelvis CT showed changes in the lung that is consistent with the metastatic lung disease and primary malignancy in the right lower lobe. There is also retroperitoneal adenopathy. There is also the possibility of a neoplastic mass in the descending colon as well. She also went to have a body scan nuclear medicine but the results, of course, are pending. We will follow recommendations. Patient is on antibiotics for possible pneumonia, in this case ceftriaxone and azithromycin. We will continue with the same management. 2. Disposition. We will continue to monitor this patient closely. cc: Quan Briggs MD
[2019-04-10] MEDS: ZOCOR PO SCH (20:55)
--- NOTE | 2019-04-10 22:28 | CONSULTATION ---
DATE OF CONSULTATION: 04/10/2019 REASON FOR CONSULTATION: Adenocarcinoma of the lung with brain metastasis. HISTORY OF PRESENT ILLNESS: Ms. Edmonds is a 74-year-old female, never smoker, who presented to the emergency room on 04/06/2019, with a syncopal or near syncopal episode. Workup revealed what appeared to be lung cancer. CT at the time showed multiple lung nodules. CT of the abdomen and pelvis revealed significant retroperitoneal adenopathy. There is no mention of hepatic metastasis. There is no mention of adrenal metastasis. MRI of the brain, however, shows multiple brain metastases bilaterally. She has been started on steroids. I have been consulted for consideration of palliative radiation therapy. Bronchoscopy with biopsy was done and this revealed an adenocarcinoma. PAST MEDICAL HISTORY: Nonischemic cardiomyopathy, diabetes mellitus, hypertension, dyslipidemia, and chronic renal insufficiency. SOCIAL HISTORY: She is . Denies alcohol or tobacco use. FAMILY HISTORY: None significant. REVIEW OF SYSTEMS: The patient reports chronic bronchitis, weakness, and some weight loss. PHYSICAL EXAMINATION: She is a well-developed, well-nourished, white female, in no acute distress. Vitals: Per the hospital record. Pupils are equal, round, react to light. Oropharynx is clear. Neck: Supple. Lungs: Clear to auscultation. Heart: Regular in rate and rhythm. Abdomen: Soft. Extremities: No edema. ASSESSMENT AND PLAN: In summary, Ms. 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 I agree with the recommendation for palliative radiation therapy to the brain. We have reviewed the risks and benefits of radiation therapy in detail, as well as the expected short- and long-term side effects of treatment. The patient is in agreement with the plan. I will coordinate simulation hopefully for tomorrow with plans to start her treatment on Sunday. She may receive treatment as an outpatient, so there is no need to hold her here for me. cc: Daphne Beard MD
[2019-04-11] MEDS: DECADRON IV SCH ×3 (02:38→18:27)
--- NOTE | 2019-04-11 03:20 | PULMONOLOGY PROGRESS NOTE ---
DATE: 04/10/2019 SUBJECTIVE: The patient is awake and alert. She has had a long day, but she is able to smile. OBJECTIVE: Vital Signs: The patient has been afebrile for the last 24 hours. Blood pressure 101/52, heart rate 90, respiratory rate 16, oxygen saturation 98%. HEENT: Pupils are equal and reactive. Oropharynx appears clear. Neck: Supple. Chest: Reveals decreased breath sounds right base. Cardiac: S1, S2. Abdomen: Soft. Extremities: Without edema. LABORATORIES: Preliminary report from biopsies of the right hilar mass reveal adenocarcinoma. This was discussed with the Pathologist, and he is aware there may be a pelvic mass. White blood count 13.3, hemoglobin 8.6, platelet count 473,000. Sodium 129, potassium 4.6, chloride 93, BUN 53, creatinine 2.8. Glucose 487. IMPRESSION: A 74-year-old never smoker with 1. Lung mass with multiple pulmonary nodules. Biopsy of the lung mass is consistent with adenocarcinoma. 2. Brain metastasis. 3. Extensive retroperitoneal adenopathy with possibility of mass in the ascending colon. 4. Hyperglycemia with a component of steroid-induced poor control. 5. Chronic renal insufficiency. 6. Iatrogenic hyperthyroidism. PLAN: 1. Anticipate simulation of the brain for initiation of radiotherapy tomorrow. 2. Await special stains/markers from Pathology to confirm the etiology of her adenocarcinoma. 3. Overall prognosis appears poor. cc: Todd Graves MD
[2019-04-11] MEDS: HUMALOG SUBQ SCH ×4 (06:15→20:19)
[2019-04-11 07:23] LABS: BASO# 0.01 X1000 (0.0-0.2); HEMATOCRIT 27.8 % (37.0-47.0); HEMOGLOBIN 8.6 g/dL (12.0-16.0); IMM GRAN# 0.09 X1000 (0.0-0.04); IMM GRAN% 0.4 % (0.0-0.5); LYMPH# 0.61 X1000 (1.2-3.4); LYMPH% 2.9 % (20.5-51.1); MCH 23.6 PG (27-31); MCHC 30.9 g/dL (33-37); MCV 76.4 FL (81-99); MONO# 0.45 X1000 (0.11-0.59); MONO% 2.1 % (1.7-9.3); MPV 9.3 FL (7.4-10.4); NEUT# 20.22 X1000 (1.4-6.5); NEUT% 94.6 % (42.2-75.2); PLT 544 X1000 (130-400); RBC 3.64 XMIL (4.2-5.4); RDW 13.1 % (11.5-14.5); WBC 21.38 X1000 (4.8-10.8)
[2019-04-11 07:37] LABS: AGAP 15; ALB/GLOB RATIO 0.9; ALBUMIN 3.2 g/dL (3.5-5.0); ALKALINE PHOSPHATASE 142 U/L (32-104); BUN 51 mg/dL (8-22); CALCIUM 9.9 mg/dL (8.8-10.2); CHLORIDE 99 mmol/L (98-107); COSMO 291; CREATININE 1.9 mg/dL (0.5-0.9); ESTIMATED GFR 26; GLUCOSE 256 mg/dL (70-104); GOT 14 U/L (10-30); GPT 16 U/L (10-36); POTASSIUM 4.9 mmol/L (3.5-5.1); SODIUM 134 mmol/L (136-145); TCO2 20 mmol/L (25-35); TOTAL BILIRUBIN < 0.15 mg/dL (0.20-1.00); TOTAL PROTEIN 6.7 g/dL (6.3-8.3)
[2019-04-11 08:16] LABS: ANISOCYTOSIS 3+; HYPOCHROM 2+; LYMPHS 3 % (21-51); MICROCYTOSIS 3+; MONO 1 % (1-9); SEGS 96 % (42-75)
[2019-04-11 08:17] LABS: POIKILOCYTOSIS 1+; TARGET CELLS 1+
[2019-04-11] MEDS: LANOXIN PO SCH (08:43)
[2019-04-11] MEDS: LANTUS INSULIN SUBQ SCH ×2 (08:43→20:20)
[2019-04-11] MEDS: ASPIRIN EC PO SCH (08:44)
[2019-04-11] MEDS: SYNTHROID PO SCH (08:44)
[2019-04-11] MEDS: COREG PO SCH ×2 (08:44→20:21)
[2019-04-11] MEDS: KLONOPIN PO SCH ×2 (08:44→20:21)
[2019-04-11] MEDS: ISORDIL PO SCH ×3 (08:44→16:53)
[2019-04-11] MEDS: ZITHROMAX PO SCH (08:44)
--- NOTE | 2019-04-11 09:28 | PROGRESS NOTE ---
DATE: 04/11/2019 SUBJECTIVE: This is a 74-year-old patient of Dr. Jarred Rivera. She apparently was sitting on the commode, was about to drink some [employer] Breakfast. The next thing she knew, it was all over her lap. She did not remember. thinks she passed out for a short time. Denied any tonic-clonic activity. Denied any focal neurologic problems. Did not notice any incontinence of bowel or bladder. No complaints of chest pain. PAST MEDICAL HISTORY: 1. Diabetes mellitus type 2. 2. Hyperlipidemia. 3. Hypertension. PAST SURGICAL HISTORY: I think she has had her tonsils out when she was 17. Presented with a syncopal episode today. OBJECTIVE: General: Today on exam, she is pleasant and awake. Vital signs: Temp 98.2 degrees, pulse 80, respirations 14, blood pressure 102/50. HEENT: Pupils are equal and round. Lungs: Clear in all lung woodward. Cardiovascular: Regular rhythm and rate without murmur or S3. Abdomen: Soft. Skin: Warm and dry. Intake and Output: Urine output is 1800 mL. DIAGNOSTIC DATA: Blood sugar is 335, 303, and 204. ASSESSMENT AND PLAN: 1. Lung mass with multiple pulmonary nodules. Biopsy of lung mass consistent with adenocarcinoma. 2. Brain metastasis. She is going to get mapping done for radiation treatment. She is on steroids. 3. Extensive retroperitoneal adenopathy, possibly mass in the ascending colon. 4. Hyperglycemia with a component steroid induced, poor control. Continue to try and control sugars. 5. Chronic renal insufficiency. 6. Iatrogenic hyperthyroidism. 7. She is going to and get simulation for brain for initiation of radiotherapy today. Await special stains and markers from pathology from lung biopsy. ORDERS: Looking at her orders, she is on aspirin 81 mg a day, azithromycin 500 mg a day, Coreg 6.25 mg twice a day, Klonopin 0.5 mg b.i.d., Decadron 4 mg IV q.8, digoxin 125 mcg p.o. daily, insulin glargine 30 units subcu q.p.m. and 50 units subcu q.a.m., isosorbide 20 mg t.i.d., Synthroid 137 mcg p.o. daily, ceftriaxone 1 g IV q.24 hours, Zocor 20 mg at bedtime, Ultram 50 mg p.o. q.6 hours and Desyrel 25 mg at bedtime p.r.n. She is on normal saline 70 mL every hour. RECENT LABS: White count elevated secondary to steroids at 21,380, hematocrit is 27, platelet count 544,000. Electrolytes: Sodium 134, potassium 4.9, chloride 99, BUN 51, creatinine 1.9 which is down from 2.2 yesterday. Blood sugars running in the 400s and 500. Continue sliding scale. She is on dexamethasone 4 mg IV q.8 hours. cc: Carson Garnica MD
[2019-04-11] MEDS: ROCEPHIN 1 GM in NS 50 ML IV SCH (13:16)
--- NOTE | 2019-04-11 14:20 | HEMO/ONC CONSULTATION ---
DATE: 04/10/2019 ADMITTING PHYSICIAN: Dr. Garnica. REQUESTING PHYSICIAN: Dr. Garnica. We appreciate this consult. CHIEF COMPLAINT: Metastatic lung cancer. HISTORY OF PRESENT ILLNESS: Ms. Edmonds is a pleasant 74-year-old female with a medical history of diabetes mellitus type 2, hyperlipidemia and hypertension. The patient presented to [facility] Emergency Department secondary to questionable syncopal episode. The patient reports that she has had a recent cough that has worsened over the last several weeks. She reports the cough is nonproductive. She denies fevers, chills or weight loss, and the patient underwent chest x-ray in the emergency department which revealed lung nodules and infiltrates. CT was recommended. CT of the chest revealed a large subcarinal mass in the mediastinum measuring 7.2 x 10 cm with numerous large pulmonary nodules bilaterally measuring up to 3.2 cm, at least 40 nodules in each lung. Enlargement of the thyroid gland was seen in the left lobe. The patient underwent CT of the abdomen and pelvis which revealed changes in the lung bases consistent with metastatic disease and markedly retroperitoneal adenopathy. Additionally, the possibility of a neoplastic mass in the ascending colon/cecum was seen. The patient underwent CT of the head, which revealed the possibility of cerebral metastasis. Recommending MRI. MRI of the brain was obtained and revealed bilateral parietal lobe metastasis with mild vasogenic edema. We are consulted secondary to metastatic lung cancer to the brain. PAST MEDICAL HISTORY: As in HPI. PAST SURGICAL HISTORY: Adenoidectomy. FAMILY HISTORY: Negative for hematologic or oncologic disease. SOCIAL HISTORY: The patient has no history of tobacco, alcohol or illicit drug use. MEDICATIONS ON ADMISSION: Medication reconciliation is currently pending. ALLERGIES: The patient has no known drug allergies. REVIEW OF SYSTEMS: A 14 point review of systems was obtained and is negative except for mentioned in HPI. PHYSICAL EXAMINATION: General: Ms Edmonds is a very pleasant 74-year-old female, lying supine in bed in no immediate distress. Vital Signs: Temperature 97.5 degrees, blood pressure 109/45, heart rate 63, respirations 18, O2 saturation 97% on room air. HEENT: Normocephalic, atraumatic. Mucous membranes are slightly pale and moist. Sclerae is anicteric. Extraocular movements intact. Neck: Supple. Lungs: Clear to auscultation bilaterally. Chest expansion is equal bilaterally. Cardiovascular: S1, S2 is heard. No murmurs, rubs or gallops. Abdomen: Nondistended. Extremities: No clubbing, cyanosis, or edema. Dermatologic: No rashes, bruises or lesions. Neurologic: The patient is awake, alert, oriented x3. Has no focal deficits. LABORATORY DATA: Hemoglobin 9.1, hematocrit 30.3, white blood cell count is 18.97, platelets 472,000. ANC 16.81. ALC 0.72. Sodium 137, potassium 5.5, chloride 99, CO2 is 24, BUN 45, creatinine 2.0 and glucose is 423. LFTs are within normal limits except for alkaline phosphatase which is 144. CA-19-9 is less than 1. CEA is 34.2, CA-125 is 33. Folate is 31.4. TSH is 0.06. Urinalysis is negative for UTI. Toxicology is negative. AFB smear is pending. Fungal smear is pending. DIAGNOSTIC DATA: Imaging studies as in HPI. ASSESSMENT AND PLAN: 1. Metastatic lung cancer to the brain. Bronchoscopy revealed necrotic mass with pathology currently pending. Radiation Oncology has been consulted. We will await pathology with treatment recommendation to follow results. 2. Questionable pneumonia. The patient is currently on antibiotic. 3. Diabetes mellitus type 2. Per Hospitalist. 4. Hypothyroidism, stable at this time. 5. We will follow along with you and make further recommendations pending outcomes. The above reflects the history, exam, assessment plan of Dr. Lange. Dictated by AMANDA Marquez for Nate Lange MD cc: AMANDA Marquez MD
[2019-04-11] MEDS: ZOCOR PO SCH (20:21)
[2019-04-12] MEDS: DECADRON IV SCH ×3 (03:09→18:22)
[2019-04-12] MEDS: HUMALOG SUBQ SCH ×4 (06:05→21:06)
[2019-04-12] MEDS: ASPIRIN EC PO SCH (08:57)
[2019-04-12] MEDS: LANOXIN PO SCH (08:57)
[2019-04-12] MEDS: COREG PO SCH ×2 (08:57→21:05)
[2019-04-12] MEDS: ZITHROMAX PO SCH (08:57)
[2019-04-12] MEDS: KLONOPIN PO SCH ×2 (08:57→21:05)
[2019-04-12] MEDS: ISORDIL PO SCH ×3 (08:57→18:22)
[2019-04-12] MEDS: SYNTHROID PO SCH (08:57)
[2019-04-12] MEDS: LANTUS INSULIN SUBQ SCH ×2 (08:58→21:06)
--- NOTE | 2019-04-12 09:57 | PROGRESS NOTE ---
DATE: 04/12/2019 Ms. Edmonds was sleeping comfortably, breathing comfortably. No complaints. Easy to arouse. OBJECTIVE: Vital Signs: Temp 97.9 degrees, pulse 67, respirations 18, blood pressure 105/32. HEENT: Pupils are equal and round. Lungs: Are clear in all lung woodward. Cardiovascular: Regular rhythm and rate without murmur or S3. Abdomen: Is soft. Skin: Is warm and dry. Blood sugar 204, 287, 125. ASSESSMENT/PLAN: 1. Lung mass with multiple pulmonary nodules. Biopsy of lung mass consistent with adenocarcinoma. 2. Brain metastasis. Received mapping for radiation treatment and about to undergo radiation treatment. 3. Extensive retroperitoneal adenopathy, possible mass in the ascending colon. 4. Hyperglycemia, component steroid induced. Continue to try and control sugars. Checking pattern sugars with sliding scale. We expanded the sliding scale. 5. Chronic renal insufficiency. 6. Iatrogenic hypothyroidism. 7. Nutrition. She seems to be eating pretty well. REVIEW OF HER ORDERS: She is on aspirin 81 mg a day, azithromycin 500 mg a day, Coreg 6.25 mg b.i.d., Klonopin 0.5 mg b.i.d., dexamethasone 4 mg IV q.8, digoxin 125 mcg daily, Lantus insulin 30 units in the evening, 50 units in the morning, isosorbide dinitrate 20 mg p.o. t.i.d., Synthroid 137 mcg p.o. daily, ceftriaxone 1 g IV q.24 hours, Zocor 20 mg a day, Ultram 50 mg p.o. q.6 hours, trazodone 25 mg p.o. at bedtime p.r.n. Blood pressures look good. Blood sugars are coming down a little bit, last one was 125. cc: Carson Garnica MD
[2019-04-12] MEDS: ROCEPHIN 1 GM in NS 50 ML IV SCH (13:26)
[2019-04-12] MEDS: ZOCOR PO SCH (21:05)
[2019-04-13] MEDS: DECADRON IV SCH ×3 (03:05→17:57)
[2019-04-13] MEDS: HUMALOG SUBQ SCH ×4 (06:25→20:03)
--- NOTE | 2019-04-13 07:27 | Diag Imaging Result Doc PS360 ---
CHEST-1 VIEW - 04/13/2019 INDICATION: SOB COMPARISON: 04/07/2019 FINDINGS: There is worsening consolidation of the right lung base suggesting right lower lobe collapse or pneumonia. No other changes from prior. IMPRESSION: Significant right lower lobe collapse or pneumonia. Electronically signed by Gaston Yan 04/13/2019 7:25 AM
[2019-04-13] MEDS: ASPIRIN EC PO SCH (08:43)
[2019-04-13] MEDS: LANOXIN PO SCH (08:46)
[2019-04-13] MEDS: SYNTHROID PO SCH (08:46)
[2019-04-13] MEDS: ISORDIL PO SCH ×3 (08:47→17:57)
[2019-04-13] MEDS: ZITHROMAX PO SCH (08:47)
[2019-04-13] MEDS: COREG PO SCH ×2 (08:47→20:02)
[2019-04-13] MEDS: KLONOPIN PO SCH ×2 (08:47→20:02)
[2019-04-13] MEDS: LANTUS INSULIN SUBQ SCH ×2 (08:48→20:03)
--- NOTE | 2019-04-13 10:18 | PROGRESS NOTE ---
DATE: 04/13/2019 SUBJECTIVE: Ms. Edmonds had a pretty good night. No complaints this morning. No pain. Breathing comfortably. OBJECTIVE: Temperature 98.1 degrees, pulse 60, respirations 16, blood pressure 130/41. Pupils are equal and round. Lungs are clear in all lung woodward. Cardiovascular Examination: Regular rhythm and rate without murmur or S3. Abdomen is soft. Skin is warm and dry. Chest x-ray from this morning, significant right lower lobe collapse or pneumonia. ASSESSMENT AND PLAN: 1. Lung mass, multiple pulmonary nodules. Biopsy of lung mass consistent with adenocarcinoma. 2. Brain metastasis. She has undergone mapping for radiation. I think she will start that tomorrow. 3. Extensive retroperitoneal adenopathy, possible mass in the ascending colon. 4. Hyperglycemia, which I believe is steroid-induced and seems to be improving. Continue to maintain sugars. 5. Chronic renal insufficiency, stable. 6. Iatrogenic hypothyroidism, which is better. 7. Nutrition. She is eating pretty well. REVIEW OF ORDERS AND RECENT LABORATORY DATA: I do not see any change. cc: Carson Garnica MD
[2019-04-13] MEDS: ROCEPHIN 1 GM in NS 50 ML IV SCH (14:04)
[2019-04-13] MEDS: ZOCOR PO SCH (20:02)
[2019-04-14] MEDS: HUMALOG SUBQ SCH ×4 (06:14→20:38)
[2019-04-14] MEDS ORDERED: MILK OF MAGNESIA PO PRN (09:52)
[2019-04-14] MEDS: LANOXIN PO SCH (10:01)
[2019-04-14] MEDS: DECADRON IV SCH ×2 (10:01→17:25)
[2019-04-14] MEDS: COREG PO SCH ×2 (10:01→20:40)
[2019-04-14] MEDS: ISORDIL PO SCH ×3 (10:01→17:25)
[2019-04-14] MEDS: KLONOPIN PO SCH ×2 (10:01→20:40)
[2019-04-14] MEDS: SYNTHROID PO SCH (10:01)
[2019-04-14] MEDS: ZITHROMAX PO SCH (10:02)
[2019-04-14] MEDS: ASPIRIN EC PO SCH (10:02)
[2019-04-14] MEDS: LANTUS INSULIN SUBQ SCH ×2 (10:03→20:40)
[2019-04-14] MEDS: MIRALAX PO SCH (10:03)
--- NOTE | 2019-04-14 10:19 | PROGRESS NOTE ---
DATE: 04/14/2019 SUBJECTIVE: Ms. Edmonds had an uneventful night. She would like something to help her bowels. She has a lot of gas and feels like she is constipated. Breathing comfortably. OBJECTIVE: Temperature 98.1 degrees, pulse 50, respirations 14, blood pressure 155/50. Pupils are equal and round. Lungs are clear in all lung woodward. Cardiovascular Examination: Regular rhythm and rate without murmur or S3. Abdomen is soft. Skin is warm and dry. Blood sugar 156, 256, 173. Chest x-ray, significant right lower lobe collapse or pneumonia. ASSESSMENT AND PLAN: 1. Lung mass, multiple pulmonary nodules. Biopsy of lung mass consistent with adenocarcinoma. 2. Brain metastasis, ongoing mapping for radiation, and I believe radiation treatment starts today. 3. Extensive retroperitoneal adenopathy, possible mass in the ascending colon. 4. Hyperglycemia, which I believe is steroid-induced, improving. 5. Chronic renal insufficiency. 6. Iatrogenic hypothyroidism, better. 7. Does not have much appetite. 8. Constipation. See if we can put her on something to help with that. I will put her on some MiraLAX and she can have milk of magnesia as needed. cc: Carson Garnica MD
[2019-04-14] MEDS: ROCEPHIN 1 GM in NS 50 ML IV SCH (12:35)
[2019-04-14] MEDS: ZOCOR PO SCH (20:40)
[2019-04-15] MEDS: ULTRAM PO PRN (00:38)
[2019-04-15] MEDS: DECADRON IV SCH ×3 (00:40→17:40)
[2019-04-15] MEDS: HUMALOG SUBQ SCH ×4 (06:32→20:10)
--- NOTE | 2019-04-15 07:12 | GASTROENTEROLOGY CONSULTATION ---
DATE: 04/14/2019 CONSULTING PHYSICIAN: Carson Garnica MD REASON FOR CONSULTATION: Right colon mass for possible colonoscopy. HISTORY: This is a 74-year-old white female admitted to hospital on 04/07/2019 with apparently a syncopal episode. During stay in the hospital, she was evaluated and was found to have a hilar mass with metastasis to the brain. She is currently being treated for metastatic adenocarcinoma. There was a CT scan of the abdomen that has shown possible lesion in the right colon. Consult was obtained for a colonoscopy. Patient reports that she had her colonoscopy a long time ago and she does not remember as to when. She has had some problems with constipation but denied any change in the caliber of the stool. She has not seen any blood in her stool. During her stay in the hospital, she was found to be anemic as well. No signs of active bleeding. She has had occasional heartburn and reflux symptoms as well but denies dysphagia or odynophagia. Her appetite has not been great, and she has lost a significant amount of weight. PAST MEDICAL HISTORY: Significant for hypertension, hyperlipidemia, and diabetes type 2, hypothyroidism and CHF. PAST SURGICAL HISTORY: She has had history of tonsillectomy. MEDICATIONS: Prior to hospitalization, she was on aspirin, Coreg, vitamin B12, digoxin, Lasix, Glucotrol, hydralazine, insulin, Isordil, levothyroxine, simvastatin and spironolactone. ALLERGIES: No known drug allergies. SOCIAL HISTORY: She is , and lives with her . She does not smoke. Does not drink. Does not do illicit drugs. FAMILY HISTORY: Her mother had non-Hodgkin's lymphoma. Other than that, no history of colon cancer, stomach cancer, pancreatic cancer, kidney disease or colitis in the family. REVIEW OF SYSTEMS: As per HPI as above. PHYSICAL EXAMINATION: On examination, a very pleasant white female. She has significant hearing loss. She is somnolent, and she appears to be pale, slightly lethargic and withdrawn.Vitals: Temperature is 98.1, pulse 50 per minute, respirations 12, and blood pressure 121/52. HEENT: She head is atraumatic, normocephalic. Eyes: Conjunctivae is pale. Sclerae anicteric. Nares are patent. No discharge. Mouth: Buccal mucosa is dry. Neck: Neck is supple. No lymphadenopathy or thyromegaly. Lungs: Chest is bilaterally symmetrical moving with respirations. Breath sounds audible bilaterally, but she has fine crepitations bilaterally in lower lung area. Heart: S1 and S2 audible. No murmur could be appreciated. Abdomen: Full, soft, and nontender. I could not appreciate masses or splenomegaly. No ascites noted. Bowel sounds are audible. Extremities: No pedal edema, cyanosis, clubbing was noted. [employer]: Grossly intact. No sensory or motor deficit. LABORATORIES: Reviewed. WBC 21.38, hemoglobin is 8.6, hematocrit 27.8, and MCV 76.4, and platelets 544,000. Sodium 134, potassium 4.9, chloride 99, bicarb 20, BUN is 51, and creatinine 1.9. AST 14. ALT 16 and alkaline phosphate 141. Total bilirubin 0.15. CT scan of the abdomen and pelvis noted and reviewed. IMPRESSION: This is a 74-year-old white female who has presented with a near syncopal episode, and admitted to hospital with syncopal episode. She is a diabetic hypertensive with CHF. She has been found to have metastatic disease. Initially, it was thought to be a lung primary, but the pathology came back as adenocarcinoma with possible GI origin. She has already had metastasis to the brain. She is scheduled to receive radiation therapy to the brain, and request was received to proceed with colonoscopy to identify the primary. Considering her comorbid conditions, a high risk procedure, first of all she has to be prepped, and then she has to be stable enough to be sedated for the procedure. I will discuss the case with Dr. Graves who is the job counselor on the case, and the oncologist to see if that will be something that will alter the treatment or would be beneficial in a way that she should take the risk for this procedure. If all are agreeable, the family and the patient themselves are agreeable have agreed to proceed with colonoscopy. After discussion, plans will be made according to the decision made. Other than that, not much to add. Continue current treatment. We will follow. cc: Arturo Deleon MD
--- NOTE | 2019-04-15 08:01 | PULMONOLOGY PROGRESS NOTE ---
DATE: 04/14/2019 SUBJECTIVE: The patient is sleeping but arousable. She drifts back to sleep. Family reports she is extremely fatigued following her radiation today. OBJECTIVE: Vital Signs: The patient has been afebrile for the last 24 hours. Blood pressure 155/50, heart rate 50, respiratory rate 14, oxygen saturation 97% on room air. HEENT: Pupils are equal and reactive. Oropharynx appears clear. Neck is supple. Chest reveals decreased breath sounds at the right base. Cardiac Examination: S1-S2. Abdomen is soft. Extremities are without edema. Laboratories: Final pathology on lung biopsies reveals an adenocarcinoma with high HC, compatible with metastatic adenocarcinoma from the lower GI tract. IMPRESSION: A 74-year-old with: 1. Lung mass consistent with adenocarcinoma. 2. Brain metastasis. 3. Steroid-induced hyperglycemia. 4. Possible colonic malignancy, given radiographic findings. 5. Chronic renal insufficiency. 6. Iatrogenic hyperthyroidism. PLAN: 1. Continue radiation to the brain for metastasis. 2. Await recommendations from the oncology service. Her performance status appears marginal for aggressive treatment. Oncology and GI will need to decide if colonoscopy is warranted. 3. Overall prognosis appears poor. cc: Todd Graves MD
[2019-04-15] MEDS: ISORDIL PO SCH ×3 (09:59→20:12)
[2019-04-15] MEDS: LANOXIN PO SCH ×2 (09:59→11:38)
[2019-04-15] MEDS: SYNTHROID PO SCH (09:59)
[2019-04-15] MEDS: COREG PO SCH ×3 (09:59→20:12)
[2019-04-15] MEDS: ZITHROMAX PO SCH (09:59)
[2019-04-15] MEDS: MIRALAX PO SCH (09:59)
[2019-04-15] MEDS: ASPIRIN EC PO SCH (09:59)
[2019-04-15] MEDS: KLONOPIN PO SCH ×2 (09:59→20:13)
[2019-04-15] MEDS: LANTUS INSULIN SUBQ SCH ×2 (10:11→20:11)
[2019-04-15 13:26] LABS: BASO# 0.02 X1000 (0.0-0.2); BASO% 0.1 % (0.0-0.8); EOS# 0.03 X1000 (0.0-0.7); EOS% 0.1 % (0.0-10.0); HEMATOCRIT 31.8 % (37.0-47.0); HEMOGLOBIN 9.7 g/dL (12.0-16.0); IMM GRAN# 0.41 X1000 (0.0-0.04); IMM GRAN% 1.6 % (0.0-0.5); LYMPH# 0.62 X1000 (1.2-3.4); LYMPH% 2.5 % (20.5-51.1); MCH 23.5 PG (27-31); MCHC 30.5 g/dL (33-37); MCV 77.2 FL (81-99); MONO# 0.62 X1000 (0.11-0.59); MONO% 2.5 % (1.7-9.3); MPV 9.8 FL (7.4-10.4); NEUT# 23.58 X1000 (1.4-6.5); NEUT% 93.2 % (42.2-75.2); PLT 543 X1000 (130-400); RBC 4.12 XMIL (4.2-5.4); RDW 13.8 % (11.5-14.5); WBC 25.28 X1000 (4.8-10.8)
[2019-04-15 13:48] LABS: BANDS 1 % (0-1); LYMPHS 3 % (21-51); MONO 3 % (1-9); SEGS 93 % (42-75)
[2019-04-15 13:49] LABS: ANISOCYTOSIS 1+; HYPOCHROM 2+; MICROCYTOSIS 1+; POIKILOCYTOSIS 1+; TARGET CELLS 1+
--- NOTE | 2019-04-15 13:49 | PROGRESS NOTE ---
DATE: 04/15/2019 SUBJECTIVE: Ms. Edmonds had a better day today. She says it is much better than yesterday. She is a little bit tired but resting comfortably. OBJECTIVE: Temperature 97.5 degrees, pulse 58, respirations 16, blood pressure 106/38. Pupils are equal and round. Lungs are clear in all lung woodward. Cardiovascular Examination: Regular rhythm and rate without murmur or S3. Abdomen is soft. Skin is warm and dry. Blood sugars 145, 178, 258. Lab: From today, white count of 25,280, hematocrit is 31, hemoglobin 9.7, platelet count is 543,000. Blood sugars 173, 145, 178. ASSESSMENT AND PLAN: 1. Lung mass consistent with adenocarcinoma, brain metastasis. 2. Steroid-induced hyperglycemia. 3. Possible colonic malignancy. We will check colonoscopy, I think on . 4. Chronic renal insufficiency. 5. Iatrogenic hyperthyroidism. She is eating a little bit. REVIEW OF HER ORDERS: I do not see any change. cc: Carson Garnica MD
[2019-04-15] MEDS ORDERED: GOLYTELY PO ONE (14:00)
--- NOTE | 2019-04-15 14:46 | GASTROENTEROLOGY PROGRESS NOTE ---
DATE: 04/15/2019 SUBJECTIVE: The patient was awake and alert at the time of my visit. Her daughter was at the bedside. She did receive her first radiation treatment yesterday. OBJECTIVE: Vital Signs: Temperature 97.5 degrees, pulse 50, blood pressure 114/43. General: Patient is awake and alert. No acute distress. LABORATORY: Hematology: WBC 21.38, hemoglobin 8.6, hematocrit 27.8, MCV 76.4, platelets 544,000. Chemistry: Sodium 134, potassium 4.9, chloride 99, CO2 20, BUN 51, creatinine 1.9, glucose 270. ASSESSMENT: 1. Recent findings of lung mass consistent with adenocarcinoma. 2. Metastasis to the brain. 3. Possible colon malignancy per imaging studies. 4. Chronic renal insufficiency. 5. Congestive heart failure. 6. Hyperthyroidism. PLAN: Patient has received her first radiation treatment. She is following with Dr. Beard. Patient also following with Dr. Lange. Patient's last colonoscopy was over 10 to 15 years ago. Patient has had some issues with constipation. Continue current MiraLAX dose. Dr. Deleon has discussed recommendations with Dr. Lange who does recommend a colonoscopy. Patient will most likely need a 2 day prep. Will start that today and plan for colonoscopy on . I have discussed the procedure with the patient and the daughter and they wish to proceed. I have discussed benefits and risks of the procedure. Patient was also seen by Dr. Deleon yesterday. Further plans will be made according to findings. I have discussed this case with Dr. Deleon. Dictated by AMANDA Nixon for Arturo Deleon MD cc: AMANDA Last MD
[2019-04-15 14:52] LABS: ALB/GLOB RATIO 1.1; ALBUMIN 3.4 g/dL (3.5-5.0); CREATININE 1.6 mg/dL (0.5-0.9); POTASSIUM 5.3 mmol/L (3.5-5.1); TOTAL BILIRUBIN 0.15 mg/dL (0.20-1.00); TOTAL PROTEIN 6.6 g/dL (6.3-8.3)
[2019-04-15] MEDS: ROCEPHIN 1 GM in NS 50 ML IV SCH (14:57)
[2019-04-15] MEDS: VENOFER 300 MG in NS 250 ML IV SCH (17:40)
[2019-04-15] MEDS: ZOCOR PO SCH (20:12)
[2019-04-15] MEDS: ZOFRAN IV PRN (20:14)
--- NOTE | 2019-04-15 22:08 | PULMONOLOGY PROGRESS NOTE ---
DATE: 04/15/2019 SUBJECTIVE: The patient is awake, alert, and conversant. She reports less fatigue today following her radiation treatment. She is without specific complaints. OBJECTIVE: Vital Signs: The patient has been afebrile for the last 24 hours. Blood pressure 117/49, heart rate 60, respiratory rate 17, oxygen saturation 100% on room air. HEENT: Pupils are equal and reactive. Oropharynx appears clear. Neck: Supple. Chest: Reveals significant decrease in breath sounds at the right base. Cardiac: S1, S2. Abdomen: Soft. Extremities: Without edema. IMPRESSION: 1. Lung mass with biopsy report consistent with adenocarcinoma. 2. Brain metastasis. 3. Steroid-induced hyperglycemia. 4. Possible colonic malignancy. 5. Chronic renal insufficiency. PLAN: 1. Chart has been reviewed. Anticipation of a colonoscopy to be performed per Dr. Deleon. 2. Continue to follow peripherally with you. cc: Todd Graves MD
[2019-04-16] MEDS: DECADRON IV SCH ×3 (00:02→16:41)
[2019-04-16] MEDS: ULTRAM PO PRN (00:03)
[2019-04-16] MEDS: HUMALOG SUBQ SCH ×4 (06:00→21:05)
[2019-04-16] MEDS: VENOFER 300 MG in NS 250 ML IV SCH (08:56)
[2019-04-16] MEDS: MIRALAX PO SCH (08:56)
[2019-04-16] MEDS: ASPIRIN EC PO SCH (08:57)
[2019-04-16] MEDS: COREG PO SCH ×2 (08:57→21:05)
[2019-04-16] MEDS: ZITHROMAX PO SCH (08:57)
[2019-04-16] MEDS: SYNTHROID PO SCH (08:57)
[2019-04-16] MEDS: LANOXIN PO SCH (08:57)
[2019-04-16] MEDS: ISORDIL PO SCH ×3 (08:57→16:41)
[2019-04-16] MEDS: LANTUS INSULIN SUBQ SCH ×2 (08:58→21:08)
[2019-04-16] MEDS: ZOFRAN IV PRN (09:08)
[2019-04-16] MEDS: KLONOPIN PO SCH ×2 (09:48→21:04)
--- NOTE | 2019-04-16 10:38 | PROGRESS NOTE ---
DATE: 04/16/2019 SUBJECTIVE: Ms. Edmonds is having a rougher morning. She is nauseated, has a lot of abdominal gas. She did get some sleep last night. OBJECTIVE: Vital Signs: Temp 97.3 degrees, pulse 61, respirations 16, blood pressure 138/57. HEENT: Pupils are equal and round. Lungs: Clear in all lung woodward. Cardiovascular: Regular rhythm and rate without murmur or S3. Abdomen: Soft. Skin: Warm and dry. Urine output is 1600 mL. ASSESSMENT AND PLAN: 1. Lung mass. Biopsy report consistent with adenocarcinoma. 2. Brain metastasis. 3. Steroid-induced hyperglycemia. 4. Possible colonic malignancy. Colonoscopy planned for tomorrow. 5. Chronic renal insufficiency. She is having some nausea this morning. Looking at orders. Continue her radiation treatments to her head. I do not see any change in her orders. She is on a liquid diet still. White count is still elevated secondary to steroids. Hematocrit 31, hemoglobin 9.7. Electrolytes look good from yesterday. Creatinine is stable at 1.6. Actually, it has come down from 2.2 when she came. cc: Carson Garnica MD
[2019-04-16] MEDS: ROCEPHIN 1 GM in NS 50 ML IV SCH (13:32)
[2019-04-16] MEDS ORDERED: GOLYTELY PO ONE (14:00)
--- NOTE | 2019-04-16 19:51 | GASTROENTEROLOGY PROGRESS NOTE ---
DATE: 04/16/2019 SUBJECTIVE: At the time of my rounds, the patient was gone for radiation. I spoke with her nurse who states that she was unable to tolerate the colon prep. She has had some episodes of nausea and vomiting and she refused to drink the prep. We were planning on a colonoscopy for due to her new diagnosis of lung mass showing biopsy consistent with adenocarcinoma and imaging studies of possible tumor in the colon. OBJECTIVE: Vital Signs: Temperature 97.6 degrees, pulse 62, respirations 14, blood pressure 136/62. Generally: The patient, as noted, was on for radiation treatment and no family was at the bedside. LABORATORY: Hematology: WBC 25.28, hematocrit 31.8, MCV 77.2, platelets 543,000. Chemistry: Sodium 132, potassium 5.3, chloride 98, CO2 21, BUN 65, creatinine 1.6, glucose 336, calcium 10, iron 31, TIBC 264, percent saturation 12. ASSESSMENT AND PLAN: 1. Lung mass. Biopsy from bronchoscopy consistent with adenocarcinoma. 2. Brain metastasis. Patient is receiving radiation treatment. 3. Possible colon tumor. Colonoscopy was planned for tomorrow, but the patient has been unable to tolerate the colon prep. 4. Chronic renal insufficiency. She has had elevated BUN and creatinine. Had thought of trying low-dose prep but is not recommended for renal insufficiency. We will cancel her colonoscopy for now and can proceed once the patient may be able to tolerate the colon prep. It can be done as an outpatient depending on her progress. I have discussed this case with Dr. Deleon. Further plans to be made as needed. Dictated by AMANDA Nixon for Arturo Deleon MD cc: AMANDA Last MD [facility]
[2019-04-16] MEDS: ZOCOR PO SCH (21:04)
[2019-04-17] MEDS: DECADRON IV SCH ×4 (00:48→23:30)
[2019-04-17] MEDS: HUMALOG SUBQ SCH ×4 (06:30→20:53)
[2019-04-17] MEDS: MIRALAX PO SCH (08:39)
[2019-04-17] MEDS: ASPIRIN EC PO SCH (08:39)
[2019-04-17] MEDS: ZITHROMAX PO SCH (08:39)
[2019-04-17] MEDS: SYNTHROID PO SCH (08:39)
[2019-04-17] MEDS: LANOXIN PO SCH (08:40)
[2019-04-17] MEDS: LANTUS INSULIN SUBQ SCH ×2 (08:40→20:54)
[2019-04-17] MEDS: ISORDIL PO SCH ×3 (08:40→16:12)
[2019-04-17] MEDS: COREG PO SCH ×2 (08:40→20:54)
[2019-04-17] MEDS: VENOFER 300 MG in NS 250 ML IV SCH (08:41)
--- NOTE | 2019-04-17 08:49 | PROGRESS NOTE ---
DATE: 04/17/2019 SUBJECTIVE: Ms. Edmonds is sleeping and resting comfortably. She had a pretty good night. I think the plan is to see if they can do colonoscopy today. She is supposed to get radiation treatment again today. OBJECTIVE: Temperature 97.5 degrees, pulse 53, respirations 19, and blood pressure 122/42. Pupils are equal and round. Lungs are clear in all lung woodward. Cardiovascular exam regular rhythm and rate without murmur or S3. Abdomen is soft. Skin is warm and dry. I think colonoscopy is planned today. Continue radiation treatment. ASSESSMENT AND PLAN: 1. Lung mass biopsy from bronchoscopy consistent with adenocarcinoma. 2. Brain metastasis. 3. Colon tumor. Colonoscopy planned. The patient has not been able to tolerate the prep so may have to do a different type of prep. 4. Chronic renal insufficiency, elevated BUN and creatinine. They are trying to do a low-dose prep. I think they are going to cancel the colonoscopy, and proceed once patient is able to tolerate the colon prep. I think that is the plan so no colonoscopy today. 5. Steroid-induced hyperglycemia. Her sugars actually kind of dropped yesterday so we will see if we need to back down on her insulin. cc: Carson Garnica MD
[2019-04-17] MEDS: KLONOPIN PO SCH ×2 (10:34→20:54)
[2019-04-17] MEDS: ROCEPHIN 1 GM in NS 50 ML IV SCH (13:44)
--- NOTE | 2019-04-17 14:48 | GASTROENTEROLOGY PROGRESS NOTE ---
DATE: 04/17/2019 The patient was awake and alert. She was eating lunch at the time of my evaluation, her was at the bedside. She states she feels a little better today. Yesterday, she had a rough day with nausea and vomiting. She was unable to tolerate the colonoscopy prep so the colonoscopy procedure was canceled. OBJECTIVE: Vital: Temperature 97.5 degrees, pulse 53, respirations 19, blood pressure 122/42. General: Patient is awake, alert, in no acute distress. I believe there are plans for her to have another radiation treatment today. LABORATORY: Hematology from 04/15/2019 showed WBC 25.28, hemoglobin 9.7, hematocrit 31.8, MCV 77.2, platelets 543,000. ASSESSMENT AND PLAN: 1. Recent lung mass with biopsy showing MD adenocarcinoma. 2. Brain metastasis. Patient is receiving radiation. 3. Possible colon tumor. Colonoscopy was planned but patient was unable to tolerate the colon prep. At this time, we will postpone the colonoscopy until patient is strong enough to go through the prep and procedure. Would follow recommendations from Oncology on whether they want the colonoscopy done. I have discussed this case with Dr. Deleon. We will continue to follow. Further plans to be made according to her progress. Dictated by AMANDA Nixon for Arturo Deleon MD cc: AMANDA Last MD
[2019-04-17] MEDS: ZOCOR PO SCH (20:54)
[2019-04-18] MEDS: ULTRAM PO PRN ×2 (00:35→08:56)
[2019-04-18] MEDS: HUMALOG SUBQ SCH ×4 (06:04→20:39)
[2019-04-18] MEDS: COREG PO SCH ×2 (08:56→20:40)
[2019-04-18] MEDS: ISORDIL PO SCH ×3 (08:56→16:40)
[2019-04-18] MEDS: ASPIRIN EC PO SCH (08:56)
[2019-04-18] MEDS: LANOXIN PO SCH (08:56)
[2019-04-18] MEDS: SYNTHROID PO SCH (08:56)
[2019-04-18] MEDS: ZITHROMAX PO SCH (08:56)
[2019-04-18] MEDS: DECADRON IV SCH ×2 (08:58→16:40)
[2019-04-18] MEDS: LANTUS INSULIN SUBQ SCH ×2 (08:58→20:39)
[2019-04-18] MEDS: KLONOPIN PO SCH ×2 (08:58→20:40)
[2019-04-18] MEDS: MIRALAX PO SCH (08:58)
--- NOTE | 2019-04-18 10:03 | PROGRESS NOTE ---
DATE: 04/18/2019 SUBJECTIVE: Ms. Edmonds feels better today. She is not having any nausea at the time. She got some good sleep last night. OBJECTIVE: Vital Signs: Temp 97.8 degrees, pulse 63, respirations 22, blood pressure 138/47. HEENT: Pupils are equal and round. Lungs: Clear in all lung woodward. Cardiovascular: Regular rhythm and rate without murmur or S3 . Abdomen: Soft. Skin: Warm and dry. ASSESSMENT AND PLAN: Recent lung mass with biopsy showing adenocarcinoma with brain metastasis, questionable colon tumor. The patient unable to tolerate colon prep so postponing colonoscopy until the patient is strong enough to go through the procedure. Continue radiation treatments. Continue to encourage oral intake. REVIEW OF HER ORDERS: She is on Coreg 6.25 mg b.i.d. I think we can stop the azithromycin. She is on aspirin 81 mg a day, Klonopin 0.5 mg b.i.d., digoxin 125 mcg a day, and then her insulin glargine 15 units in the evening, 30 units in the morning, which I had recently decreased, isosorbide dinitrate 20 mg t.i.d., Synthroid 137 mcg p.o. daily, MiraLAX 17 g p.o. daily, and then ceftriaxone 1 g IV q.24 hours, Zocor 20 mg at bedtime, Ultram 50 mg q. q.6 hours, trazodone 25 mg . We will stop the azithromycin. Discussed whether we can stop the ceftriaxone. cc: Carson Garnica MD MTDD
[2019-04-18] MEDS: ROCEPHIN 1 GM in NS 50 ML IV SCH (12:00)
[2019-04-18] MEDS: ZOCOR PO SCH (20:40)
[2019-04-19] MEDS: DECADRON IV SCH ×3 (00:10→17:17)
[2019-04-19] MEDS: HUMALOG SUBQ SCH ×4 (06:12→21:19)
[2019-04-19] MEDS: LANOXIN PO SCH (08:45)
[2019-04-19] MEDS: COREG PO SCH ×3 (08:46→21:20)
[2019-04-19] MEDS: LANTUS INSULIN SUBQ SCH ×2 (08:46→21:19)
[2019-04-19] MEDS: ISORDIL PO SCH ×3 (08:46→17:17)
[2019-04-19] MEDS: SYNTHROID PO SCH (08:46)
[2019-04-19] MEDS: ASPIRIN EC PO SCH (08:46)
[2019-04-19] MEDS: KLONOPIN PO SCH ×2 (08:46→21:18)
[2019-04-19] MEDS: MIRALAX PO SCH (08:52)
--- NOTE | 2019-04-19 11:44 | PROGRESS NOTE ---
DATE: 04/19/2019 SUBJECTIVE: Ms Edmonds is comfortable. Had a pretty good night. No nausea this morning. OBJECTIVE: Vital signs: Temperature 98.1 degrees, pulse 44, respirations 19, blood pressure 132/39. Pupils are equal round. Lungs are clear in all lung woodward. Cardiovascular exam, regular rate without murmur or S3. Abdomen is soft. Skin is warm and dry. Urine output is 1300 mL. ASSESSMENT AND PLAN: Recent discovery of lung mass. Biopsy showed adenocarcinoma with brain metastasis, questionable tumor in the colon. Unable to prep and tolerate the prep at this point. Continue radiation to her head. Encourage p.o. intake. The nausea seems to be better. REVIEW OF HER ORDERS: I do not see any change. Continue current antibiotics. Has a history of hypothyroidism and she is on Synthroid 137 mcg daily. White count continues to be elevated and I think that is secondary to the steroids. Blood sugars are still very labile, 198, 191 and 341, so continue current medication. cc: Carson Garnica MD
[2019-04-19] MEDS: ROCEPHIN 1 GM in NS 50 ML IV SCH (13:46)
[2019-04-19] MEDS: ZOCOR PO SCH (21:18)
[2019-04-19] MEDS: ULTRAM PO PRN (21:18)
[2019-04-20] MEDS: DECADRON IV SCH ×5 (00:10→23:30)
[2019-04-20] MEDS: HUMALOG SUBQ SCH ×4 (06:26→20:59)
[2019-04-20] MEDS: SYNTHROID PO SCH (09:31)
[2019-04-20] MEDS: ASPIRIN EC PO SCH (09:31)
[2019-04-20] MEDS: MIRALAX PO SCH (09:31)
[2019-04-20] MEDS: KLONOPIN PO SCH ×2 (09:31→20:58)
[2019-04-20] MEDS: ISORDIL PO SCH ×3 (09:31→16:41)
[2019-04-20] MEDS: COREG PO SCH ×2 (09:31→20:17)
[2019-04-20] MEDS: LANOXIN PO SCH (09:32)
[2019-04-20] MEDS: LANTUS INSULIN SUBQ SCH ×2 (09:34→21:01)
[2019-04-20] MEDS: ROCEPHIN 1 GM in NS 50 ML IV SCH (12:47)
--- NOTE | 2019-04-20 13:25 | PROGRESS NOTE ---
DATE: 04/20/2019 SUBJECTIVE: Ms. Edmonds is doing well. No nausea. She is requesting some solid food so I am going to give her a soft gastrointestinal diet. She feels better today. Breathing comfortably. OBJECTIVE: On exam, temperature 98.6 degrees, pulse 50, respirations 19, blood pressure 93/40. Pupils are equal and round. Lungs are clear in all lung woodward. Cardiovascular Examination: Regular rhythm and rate without murmur or S3. Blood sugars 230, 122, 260. ASSESSMENT AND PLAN: 1. Found a lung mass. Biopsy seems to suggest adenocarcinoma, has brain metastasis. She is getting radiation treatment. She has suffered from some nausea but doing better so I will advance her diet to a soft diet. Continue her other orders. I do not see any change. 2. Blood pressure looks good. 3. Appears to be euthyroid on her Synthroid. 4. Continue present bowel regimen. cc: Carson Garnica MD
--- NOTE | 2019-04-20 17:19 | PULMONOLOGY PROGRESS NOTE ---
DATE: 04/20/2019 SUBJECTIVE: The patient is awake and alert. She is fatigued, which she attributes to remaining in bed. Her appetite is poor. She has not been able to tolerate the GI prep. OBJECTIVE: Vital Signs: The patient has been afebrile for the last 24 hours. Blood pressure 104/35, heart rate 62, respiratory rate 19, oxygen saturation 99% on room air. HEENT: Pupils are equal and reactive. Oropharynx is clear. Neck: Supple. Chest: Reveals diminished breath sounds right base. Cardiac: S1-S2. Abdomen: Soft. Extremities: Are without edema. IMPRESSION: 74-year-old with 1. Lung mass consistent with adenocarcinoma. 2. Brain metastasis. 3. Possible colonic malignancy. 4. Chronic renal insufficiency. 5. Steroid induced hyperglycemia . PLAN: 1. Continue current regimen. She scheduled for radiation to the brain tomorrow. 2. The patient can be discharged from a pulmonary standpoint. Will follow peripherally while she is in the hospital. cc: Todd Graves MD
[2019-04-20] MEDS: ZOCOR PO SCH (20:58)
[2019-04-20] MEDS: DESYREL PO PRN (22:34)
[2019-04-21] MEDS: HUMALOG SUBQ SCH ×4 (06:22→21:42)
[2019-04-21] MEDS: ASPIRIN EC PO SCH (08:22)
[2019-04-21] MEDS: LANTUS INSULIN SUBQ SCH ×2 (08:22→21:42)
[2019-04-21] MEDS: KLONOPIN PO SCH ×2 (08:22→21:43)
[2019-04-21] MEDS: MIRALAX PO SCH (08:22)
[2019-04-21] MEDS: ISORDIL PO SCH ×3 (08:22→16:29)
[2019-04-21] MEDS: DECADRON IV SCH ×2 (08:22→16:29)
[2019-04-21] MEDS: COREG PO SCH ×2 (08:22→21:32)
[2019-04-21] MEDS: LANOXIN PO SCH (08:23)
--- NOTE | 2019-04-21 09:45 | PROGRESS NOTE ---
DATE: 04/21/2019 SUBJECTIVE: Ms. Edmonds is eating breakfast. She feels good. No nausea. Got some sleep last night. OBJECTIVE: Vital Signs: Temp 98.5 degrees, pulse 51, respirations 16, blood pressure 129/44. HEENT: Pupils are equal and round. Lungs: Clear in all lung woodward. Cardiovascular: Regular rhythm and rate without murmur or S3. Abdomen: Soft. Skin: Warm and dry. ASSESSMENT AND PLAN: 1. Lung mass consistent with adenocarcinoma. 2. Brain metastasis. 3. Possible colonic malignancy. Receiving radiation treatment to her head. Has 5 more treatments. 4. Chronic renal insufficiency. 5. Steroid-induced hyperglycemia. 6. Her nausea is improved. She feels better, so possibility of going home this week. REVIEW OF ORDERS: I do not see any change. cc: Carson Garnica MD
[2019-04-21] MEDS: SYNTHROID PO SCH (10:43)
[2019-04-21] MEDS: ROCEPHIN 1 GM in NS 50 ML IV SCH (12:20)
--- NOTE | 2019-04-21 17:04 | HEMO/ONC PROGRESS NOTE ---
DATE: 04/21/2019 CHIEF COMPLAINT: Metastatic cancer. SUBJECTIVE: The patient is lying supine in bed in no immediate distress. The patient reports that her nausea has improved significantly. She is tolerating some small amounts of solid food at this time. OBJECTIVE: Vital Signs: Temperature 98.2 degrees, blood pressure 101/40, heart rate 60, respirations 14, O2 saturation is 94% on room air. HEENT: Normocephalic, atraumatic. Mucous membranes are pink and moist. Sclerae anicteric. Extraocular movements intact. Neck: Supple. Lungs: Clear to auscultation bilaterally. Chest expansion equal bilaterally. Cardiovascular: S1, S2 is heard. No murmurs, rubs or gallops. Abdomen: Soft, nondistended, nontender. Bowel sounds positive all quadrants. No rebound or guarding noted. Extremities: No clubbing, cyanosis, or edema. Dermatologic: No rashes, bruises or lesions. Neurologic: The patient is awake, alert, and oriented x3 and has no focal deficits. LABORATORY DATA: The patient has no recent laboratory data. ASSESSMENT AND PLAN: 1. 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 Bronchoscopy revealed necrotic mass with pathology revealing likely GI primary metastatic cancer. The patient has metastasis to the brain and the patient is undergoing radiation per Radiation/Oncology. Gastroenterology has been consulted for colonoscopy, however the patient was unable to tolerate prep due to nausea and vomiting. The patient is now tolerating some p.o. intake. We will discuss the possibility of trying for colonoscopy at this time. 2. Chronic renal insufficiency. Improved. The patient has had no recent labs. Her urine output is adequate at this time. 3. Steroid-induced hyperglycemia. Glucose is being monitored with sliding scale insulin as needed. 4. Nausea and vomiting. Nausea is much improved, at this time. Patient is tolerating some p.o. intake. 5. We will follow along with you and make further recommendations pending outcomes. The above reflects the history, exam, assessment and plan of Dr. Spears. Dictated by AMANDA Marquez for Christina Spears MD cc: AMANDA Marquez MD I have seen and examined the patient and the above note reflects my H&P, assessment and plan. Christina LAND
[2019-04-21] MEDS: DESYREL PO PRN (21:31)
[2019-04-21] MEDS: ZOCOR PO SCH (21:32)
[2019-04-22] MEDS: DECADRON IV SCH ×3 (00:40→17:14)
[2019-04-22] MEDS: HUMALOG SUBQ SCH ×4 (06:11→22:27)
[2019-04-22] MEDS: LANTUS INSULIN SUBQ SCH ×2 (09:52→22:26)
[2019-04-22] MEDS: LANOXIN PO SCH (09:53)
[2019-04-22] MEDS: ASPIRIN EC PO SCH (09:53)
[2019-04-22] MEDS: ISORDIL PO SCH ×3 (09:53→17:15)
[2019-04-22] MEDS: KLONOPIN PO SCH ×2 (09:53→22:28)
[2019-04-22] MEDS: MIRALAX PO SCH (09:53)
[2019-04-22] MEDS: COREG PO SCH ×2 (09:53→22:25)
[2019-04-22] MEDS: SYNTHROID PO SCH (09:53)
[2019-04-22] MEDS ORDERED: GOLYTELY PO ONE (12:30)
[2019-04-22] MEDS: ROCEPHIN 1 GM in NS 50 ML IV SCH (13:33)
--- NOTE | 2019-04-22 15:08 | PROGRESS NOTE ---
DATE: 04/22/2019 SUBJECTIVE: The patient has no major complaints. She looks pretty well, pretty stable. OBJECTIVE: Vital Signs: Blood pressure 97/35, heart rate 56, respiratory rate 18, temperature 98.6 degrees, saturating 98% on room air. Cardiovascular: Regular rate and rhythm. Pulmonary: Bilateral breath sounds. Clear to auscultation. GI: Soft, nontender, nondistended. Bowel sounds are positive. LABORATORY DATA: I do not have any new data. Sugars have been fairly stable. PROBLEM LIST: 1. Lung mass consistent with adenocarcinoma, moderately differentiated from a primary gastrointestinal location, but we do not have more specific data than that. Based on her tumor markers, her CA19-19 was normal. Her CEA was elevated at 34. Her CA-125 was normal, so possibly a colon adenocarcinoma, in which case we are going to get a colonoscopy tomorrow, which she is taking her prep for right now. 2. Central nervous system metastases. She is on steroids. We will decrease those or transition to oral after she has completed her colonoscopy. 3. Steroid-induced hyperglycemia. We will continue to monitor closely. 4. Disposition. I think once she has completed XRT, we are anticipating discharge. 5. Citrobacter pneumonia. She is currently on Rocephin, which it was sensitive to Kefzol and Levaquin. We should be able to transition her to oral antibiotic. She has been on Rocephin for 2 weeks. Will see what her white count is tomorrow, and probably get a two-view chest x- ray to decide about getting home subsequently. cc: Ace Jensen MD
[2019-04-22] MEDS: ZOFRAN IV PRN (15:28)
[2019-04-22] MEDS ORDERED: DULCOLAX PO ONE (17:22)
--- NOTE | 2019-04-22 17:49 | GASTROENTEROLOGY PROGRESS NOTE ---
DATE: 04/22/2019 SUBJECTIVE: Patient was asleep at the time of my evaluation. She did arouse easily. There was no family at the bedside. She states her nausea has improved. She is tolerating some solid foods. We had attempted to do a colonoscopy last week, but the patient was unable to drink the colon prep due to significant nausea and vomiting. Now patient states she may be able to tolerate drinking the colon prep, she would like to try. There is question on whether her adenocarcinoma is colon primary. She is following with Dr. Lange. She is also getting radiation by Dr. Beard. Patient states she has not had a bowel movement. Last reported bowel movement was 04/19/2019. Patient will require a 2 day colon prep. OBJECTIVE: Vital Signs: Temperature 98.7 degrees, pulse 51, respirations 18, blood pressure 111/40. General: Patient is awake and alert. No acute distress. Abdomen: Soft, nontender. Positive bowel sounds. LABORATORY DATA: Hematology last done on 04/15/2019: WBC 25.28, hemoglobin 9.7, hematocrit 31.8, platelets 543,000. Last chemistry study 04/15/2019: Sodium 132, potassium 5.3, chloride 98, CO2 21, BUN 65, creatinine 1.6 glucose 336. ASSESSMENT AND PLAN: 1. Lung mass consistent with adenocarcinoma, most likely primary gastrointestinal origin. We will plan for colonoscopy as patient is unable to tolerate the colon prep. She will need a 2 day colon prep due to her issues with constipation. Will start prepping her today. 2. Metastasis to the brain. Patient has received radiation. 3. Nausea has improved. Continue current medication. 4. We will start colon prepping today and hopefully we can proceed with colonoscopy on . Further plans will be made as needed. I have discussed the colonoscopy procedure along with the benefits and risks with the patient and she wishes to proceed if able. I have discussed this case with Dr. Deleon. Dictated by AMANDA Nixon for Arturo Deleon MD cc: AMANDA Last MD [facility]
[2019-04-22] MEDS: ZOCOR PO SCH (22:25)
[2019-04-23] MEDS: DECADRON IV SCH ×3 (00:45→16:59)
[2019-04-23] MEDS: HUMALOG SUBQ SCH ×3 (06:44→16:59)
--- NOTE | 2019-04-23 07:10 | Diag Imaging Result Doc PS360 ---
EXAM: CHEST-PORTABLE 04/23/2019 HISTORY: dyspnea TECHNIQUE: AP portable at 0542 COMMENT: Compared to 04/13/2019 the left lung is slightly better expanded. There continues to be opacification in the right lower lobe although the lateral portion of the right hemidiaphragm is better defined. There are patchy perihilar opacities bilaterally. IMPRESSION: Bronchopneumonia with right lower lobe atelectasis. Electronically signed by Damion Bello 04/23/2019 7:08 AM
[2019-04-23 07:21] LABS: BASO# 0.02 X1000 (0.0-0.2); BASO% 0.1 % (0.0-0.8); EOS# 0.01 X1000 (0.0-0.7); HEMATOCRIT 30.2 % (37.0-47.0); HEMOGLOBIN 9.4 g/dL (12.0-16.0); IMM GRAN# 0.17 X1000 (0.0-0.04); IMM GRAN% 0.8 % (0.0-0.5); LYMPH# 0.68 X1000 (1.2-3.4); LYMPH% 3.2 % (20.5-51.1); MCH 24.3 PG (27-31); MCHC 31.1 g/dL (33-37); MONO# 0.95 X1000 (0.11-0.59); MONO% 4.5 % (1.7-9.3); MPV 9.8 FL (7.4-10.4); NEUT# 19.51 X1000 (1.4-6.5); NEUT% 91.4 % (42.2-75.2); PLT 301 X1000 (130-400); RBC 3.87 XMIL (4.2-5.4); RDW 15.4 % (11.5-14.5); WBC 21.34 X1000 (4.8-10.8)
[2019-04-23 07:36] LABS: CALCIUM 9.6 mg/dL (8.8-10.2); CREATININE 1.3 mg/dL (0.5-0.9)
[2019-04-23 07:48] LABS: BANDS 2 % (0-1); MONO 4 % (1-9); SEGS 94 % (42-75)
[2019-04-23] MEDS: KLONOPIN PO SCH ×2 (09:38→20:15)
[2019-04-23] MEDS: SYNTHROID PO SCH (09:38)
[2019-04-23] MEDS: LANOXIN PO SCH (09:38)
[2019-04-23] MEDS: ASPIRIN EC PO SCH (09:38)
[2019-04-23] MEDS: ISORDIL PO SCH ×3 (09:38→20:14)
[2019-04-23] MEDS: LANTUS INSULIN SUBQ SCH ×2 (09:39→20:15)
[2019-04-23] MEDS: MIRALAX PO SCH (09:39)
[2019-04-23] MEDS: COREG PO SCH ×2 (09:39→20:15)
[2019-04-23] MEDS ORDERED: MIRALAX PO ONE (14:00)
[2019-04-23] MEDS: ROCEPHIN 1 GM in NS 50 ML IV SCH (14:32)
--- NOTE | 2019-04-23 14:41 | GASTROENTEROLOGY PROGRESS NOTE ---
DATE: 04/23/2019 SUBJECTIVE: Patient is awake and alert. She denies current complaints. She is working on drinking the GoLYTELY prep for her colonoscopy on . She has started having some bowel movements but is still soft and not clear yet. We will add a MiraLAX colon prep in addition to her GoLYTELY along with Dulcolax tablets. Plan is for her colonoscopy tomorrow if she is clear enough. OBJECTIVE: Vital Signs: Temperature 98.1 degrees, pulse 56, respirations 18, blood pressure 104/40. General: Patient is awake and alert. No acute distress. Abdomen: Soft. Positive bowel sounds. LABORATORY DATA: Hematology: WBC 21.34, hemoglobin 9.4, hematocrit 30.2, MCV 78. Chemistry: Sodium 138, potassium 5.0, CO2 103, BUN 52, creatinine 1.3, glucose 199. ASSESSMENT AND PLAN: 1. Lung mass consistent with adenocarcinoma, likely primary in origin. Planning for a colonoscopy on if she is clear enough after drinking colon prep today. 2. Metastasis to the brain. Patient is receiving radiation. 3. Nausea has improved. She is currently tolerating a diet. She has been changed over to a liquid diet for her colonoscopy tomorrow. We have given her and gallon of GoLYTELY. She is starting to have bowel movements. We will do an additional MiraLAX colon prep and plan for colonoscopy on . The patient voices understanding of the plan along with benefits and risk of the colonoscopy procedure and wishes to proceed. I have discussed this case with Dr. Deleon. Dictated by AMANDA Nixon for Arturo Deleon MD cc: AAMNDA Last MD
[2019-04-23] MEDS ORDERED: DULCOLAX PO ONE ×3 (15:00→19:00)
--- NOTE | 2019-04-23 15:35 | PROGRESS NOTE ---
DATE: 04/23/2019 SUBJECTIVE: The patient has no major complaints. She has got a very positive attitude about all this whole process. OBJECTIVE: Blood pressure 104/40, heart rate of 56, respiratory rate 18, temperature 98.1 degrees, 97% on room air.Cardiovascular: Regular rate and rhythm. Pulmonary: Bilateral breath sounds clear to auscultation. GI: Soft, nontender, nondistended. Bowel sounds are positive. [place]: [place] [address], hemoglobin and hematocrit 9 and 30, platelets of 301,000, creatinine of 1.3. PROBLEM LIST: 1. GI malignancy, adenocarcinoma with again primary GI based on her lung metastasis. She also has brain metastasis. Tomorrow, we are going to get a colonoscopy to evaluate for obstruction but in any case, the plan is for chemo and XRT, which she has got [address] Lange is following. He wants to go ahead and get the biopsy results, I guess maybe to get a better, more solidified diagnosis, maybe there will be more specific information since this is likely the primary source. 2. [employer] metastases. She is still on steroids, but she has not had a colonoscopy yet so we are keeping her on IV so she does not lose absorption. She has not had any major neurological or seizure issues. 3. Steroid-induced hyperglycemia. We will continue to monitor closely. 4. Citrobacter pneumonia. She is still on Rocephin which her white count is still elevated but she is on high-dose Decadron. Her chest x-ray still shows pneumonia. I am going to continue on antibiotics for the time being and we will continue to follow. Will work on pulmonary toilet. Anticipate discharge hopefully soon. I am not sure how functional she is. We really need to avoid rehab because she needs to be initiated on chemo, so I am waiting on when we get clearance but we need to start working on getting her up and things of that nature. cc: Ace Jensen MD
[2019-04-23] MEDS: ZOCOR PO SCH (20:15)
[2019-04-24] MEDS: DECADRON IV SCH ×2 (00:49→08:25)
[2019-04-24] MEDS: HUMALOG SUBQ SCH ×5 (01:59→22:12)
[2019-04-24 07:48] LABS: CALCIUM 9.3 mg/dL (8.8-10.2); CREATININE 1.2 mg/dL (0.5-0.9); POTASSIUM 4.7 mmol/L (3.5-5.1)
[2019-04-24 07:55] LABS: BASO# 0.01 X1000 (0.0-0.2); BASO% 0.1 % (0.0-0.8); EOS# 0.01 X1000 (0.0-0.7); EOS% 0.1 % (0.0-10.0); HEMOGLOBIN 9.8 g/dL (12.0-16.0); IMM GRAN# 0.15 X1000 (0.0-0.04); IMM GRAN% 0.8 % (0.0-0.5); LYMPH# 0.44 X1000 (1.2-3.4); LYMPH% 2.4 % (20.5-51.1); MCHC 30.6 g/dL (33-37); MCV 78.2 FL (81-99); MONO# 0.65 X1000 (0.11-0.59); MONO% 3.6 % (1.7-9.3); MPV 10.5 FL (7.4-10.4); NEUT# 16.79 X1000 (1.4-6.5); PLT 305 X1000 (130-400); RBC 4.09 XMIL (4.2-5.4); RDW 15.9 % (11.5-14.5); WBC 18.05 X1000 (4.8-10.8)
[2019-04-24 08:51] LABS: LYMPHS 2 % (21-51); MONO 1 % (1-9); SEGS 96 % (42-75)
[2019-04-24 08:52] LABS: ANISOCYTOSIS 1+; BURR CELLS OCCASIONAL; LARGE PLATELETS OCCASIONAL; POLYCHROM 1+
[2019-04-24] MEDS: KLONOPIN PO SCH ×2 (11:22→22:09)
[2019-04-24] MEDS: ASPIRIN EC PO SCH (11:22)
[2019-04-24] MEDS: COREG PO SCH ×2 (11:22→22:09)
[2019-04-24] MEDS: ISORDIL PO SCH ×3 (11:22→17:56)
[2019-04-24] MEDS: MIRALAX PO SCH (11:23)
[2019-04-24] MEDS: LANOXIN PO SCH (11:23)
[2019-04-24] MEDS: LANTUS INSULIN SUBQ SCH ×2 (11:23→22:12)
[2019-04-24] MEDS: SYNTHROID PO SCH (11:23)
[2019-04-24] MEDS ORDERED: DIPRIVAN 1% ONE (12:24)
[2019-04-24] MEDS ORDERED: XYLOCAINE-MPF 2% ONE (12:24)
[2019-04-24] MEDS ORDERED: ROBINUL ONE ×2 (12:24→13:09)
--- NOTE | 2019-04-24 14:16 | ENDOSCOPY OPERATIVE NOTE ---
[facility] ENDOSCOPY OPERATIVE NOTE , COLONOSCOPY PROCEDURE REPORT PATIENT NAME: Mya Edmonds ADMISSION DATE: 04/24/2019 MR #: [id number] BIRTHDATE: 1945 SURGEON: Arturo Deleon MD AREA SECRETARY: Pastor Gonzalez PROCEDURE DATE: 04/24/2019 STATUS: inpatient INDICATIONS: The patient is a 74 yr old female here for a colonoscopy due to colonic adenocarcinoma. PROCEDURE PERFORMED: Colonoscopy with biopsy MEDICATIONS: Per Anesthesia PREP TYPE: GoLytely
[2019-04-24] MEDS: DECADRON PO SCH ×2 (15:07→23:00)
[2019-04-24] MEDS: ROCEPHIN 1 GM in NS 50 ML IV SCH (15:07)
--- NOTE | 2019-04-24 15:11 | PROGRESS NOTE ---
DATE: 04/24/2019 SUBJECTIVE: The patient has no major complaints. She seems to be doing better. She always has a fairly positive attitude. OBJECTIVE: Vital Signs: Blood pressure 131/47, heart rate 76, respiratory rate 18, saturating 97% on room air, temp was 97.9 degrees. Cardiovascular: Regular rate and rhythm. Pulmonary: Bilateral breath sounds. Clear to auscultation. GI: Soft, nontender, nondistended. Bowel sounds are positive. LABORATORY DATA: White count 18, hemoglobin and hematocrit 9 and 32, platelets 305,000. Creatinine 1.2, BUN of 38. PROBLEM LIST: 1. Likely colon adenocarcinoma. She has an ileocecal mass, which is not obstructing, but may soon obstruct her terminal ileum. Appreciate Dr. Deleon's urgent intervention. Biopsy is pending. I have gone ahead and put in for a surgical consult in case we need to consider a diverting colostomy. Will discuss with Dr. Lange how soon we can look at the chemotherapy treatment and improvement so that surgery is not an option. 2. Central nervous system metastases. She is on Decadron. Will continue for the time being. 3. Citrobacter pneumonia. She is on Rocephin. It has been over 14 days though, so today I think will be her last dose. Clinically, she has improved. 4. Disposition. I think if she is stable, she has home health, she actually did a lot better with Physical Therapy than I thought she would, so I think she could probably go home as soon as tomorrow or at the discretion of Hematology/Oncology, but the XRT can be done as an outpatient. The diverting colostomy if necessary, I defer to Surgery, if they think that needs to be done prior to discharge. They can discuss that with the primary team and Dr. Lange, of course. cc: Ace Jensen MD
--- NOTE | 2019-04-24 19:27 | GENERAL SURGERY CONSULTATION ---
DATE: 04/24/2019 REQUESTING PHYSICIAN: Dr. Jensen. CONSULT REQUEST: Concerning metastatic colon cancer. HISTORY OF PRESENT ILLNESS: A 74-year-old female who initially came in on the of last month with what sounds like syncopal episodes. She has had an extensive workup and is found to have likely metastatic colon cancer with a lesion potentially in the ascending colon at the terminal ileum to the ascending colon and cecum. She has metastatic disease to her brain and lung and it is presumed these metastatic are from GI source which likely corresponds with the mass seen on colonoscopy done today. She is otherwise doing okay, has no obstructive symptoms at this moment, but there is concern that it may be near obstructing in the close future. I was asked to weigh an opinion. PAST MEDICAL HISTORY: Diabetes mellitus type 2, hyperlipidemia, hypertension, and recent diagnosis of metastatic colon cancer. PAST SURGICAL HISTORY: Includes previous surgery on her adenoids. ALLERGIES: None. FAMILY HISTORY: Reviewed with patient, noncontributory. SOCIAL HISTORY: Denies alcohol, tobacco or illicit drugs. HOME MEDICATIONS: Reviewed and MAR reviewed. REVIEW OF SYSTEMS: A full 14 systems reviewed and are negative except as specified in HPI. PHYSICAL EXAMINATION: Vital Signs: Patient is currently afebrile. Her vital signs stable. General exam: No acute distress. HEENT: Normocephalic, atraumatic. Pupils equal, round, reactive to light. Mucous membranes moist. Oropharynx benign. Neck: Supple. Trachea midline. Cardiovascular: Regular rate and rhythm. Lungs: Grossly clear. Abdomen: Soft, nontender, nondistended. Extremities: Moves all extremities. Neurologic: Grossly intact. Skin: No signs of jaundice. Vascular: All extremities perfused. LABORATORY: Reviewed. IMAGING: Reviewed. ASSESSMENT AND PLAN: A 74-year-old female with likely metastatic colon cancer. Metastatic colon cancer. At this time, we will have to have a discussion with Dr. Lange and Dr. Deleon. If we think it is near obstructing, may need to consider some kind of palliative diversion versus excision of this area, but I will need to have a discussion with Dr. Lange and Dr. Deleon first. In the meantime, continue supportive care. We will continue to monitor. I appreciate the consult. cc: Jose Amaya MD
[2019-04-24] MEDS: DESYREL PO PRN (22:09)
[2019-04-24] MEDS: ZOCOR PO SCH (22:09)
[2019-04-25] MEDS: HUMALOG SUBQ SCH ×4 (06:20→22:05)
--- NOTE | 2019-04-25 06:34 | GENERAL SURGERY PROGRESS NOTE ---
DATE: 04/25/2019 SUBJECTIVE: Patient seems to be doing okay. She is having bowel movements. I was unable to reach Dr. Deleon last night, but will try to follow up with him today. OBJECTIVE: Vital Signs: Patient is currently afebrile. Her vital signs are stable. General: No acute distress. HEENT: Normocephalic, atraumatic. Pupils equal, round, reactive to light. Mucous membranes moist. Oropharynx benign. Neck: Supple. Trachea midline. Cardiovascular: Regular rate and rhythm. Lungs: Grossly clear. Abdomen: Soft, nontender. Extremities: Moves all extremities. Neurologic: Grossly intact. Skin: No signs of jaundice. Vascular: All extremities perfused. LABORATORY: None this morning as of yet. ASSESSMENT AND PLAN: A 74-year-old female with metastatic colon cancer causing partial, if not near obstruction. Metastatic colon cancer. At this time, will follow up with Dr. Lange and Dr. Deleon and determine the best course of action. Will continue to monitor. She is not completely obstructed at this point, so will follow while she is in the hospital. cc: Jose Amaya MD
[2019-04-25 07:25] LABS: EOS# 0.01 X1000 (0.0-0.7); EOS% 0.1 % (0.0-10.0); HEMATOCRIT 31.4 % (37.0-47.0); HEMOGLOBIN 9.6 g/dL (12.0-16.0); IMM GRAN# 0.16 X1000 (0.0-0.04); IMM GRAN% 0.9 % (0.0-0.5); LYMPH# 0.38 X1000 (1.2-3.4); LYMPH% 2.1 % (20.5-51.1); MCHC 30.6 g/dL (33-37); MCV 78.5 FL (81-99); MONO# 0.87 X1000 (0.11-0.59); MONO% 4.9 % (1.7-9.3); MPV 10.2 FL (7.4-10.4); NEUT# 16.51 X1000 (1.4-6.5); PLT 284 X1000 (130-400); RDW 16.2 % (11.5-14.5); WBC 17.93 X1000 (4.8-10.8)
[2019-04-25 07:30] LABS: CALCIUM 10.1 mg/dL (8.8-10.2); CREATININE 1.3 mg/dL (0.5-0.9); POTASSIUM 4.8 mmol/L (3.5-5.1)
[2019-04-25] MEDS: COREG PO SCH ×2 (09:20→20:51)
[2019-04-25] MEDS: DECADRON PO SCH ×2 (09:20→16:31)
[2019-04-25] MEDS: LANOXIN PO SCH (09:20)
[2019-04-25] MEDS: ISORDIL PO SCH ×3 (09:20→16:31)
[2019-04-25] MEDS: KLONOPIN PO SCH ×2 (09:20→20:51)
[2019-04-25] MEDS: SYNTHROID PO SCH (09:20)
[2019-04-25] MEDS: ASPIRIN EC PO SCH (09:20)
--- NOTE | 2019-04-25 09:27 | PROGRESS NOTE ---
DATE: 04/25/2019 SUBJECTIVE: Patient denies having any acute complaints and feels well. OBJECTIVE: Vital Signs: Temperature 98 degrees, pulse is 49 per minute, respiratory rate 616 per minute, blood pressure 132/47, pulse oximetry 96% on room air. General: Patient is alert and oriented x3. She does not appear to be in any acute distress. Cardiovascular System: First and second heart sounds are audible without any murmurs or gallops. Respiratory System: Bilateral lung air entry is good without any rales or rhonchi. Gastrointestinal: Abdomen is soft and nondistended. Normal bowel sounds are present. Musculoskeletal System: No deformities are present. DIAGNOSTIC DATA: CBC shows WBC count of 17.93. Hemoglobin is 9.6, hematocrit 31.4 with platelet count of 284,000. Basic metabolic panel showed BUN of 44 and creatinine 1.3. Rest of the BMP is nondiagnostic. IMPRESSION: 1. Metastatic colon cancer with metastasis to brain and lung. 2. Citrobacter pneumonia that has improved after receiving ceftriaxone for 2 weeks. 3. Type 2 diabetes mellitus. 4. Hypothyroidism. PLAN: The patient is currently getting treatment for metastatic colon cancer. She has an ileocecal mass that is near obstructing and may need some kind of palliative diversion versus excision and general surgery is involved in the care of this patient. We are also awaiting further direction by oncology since the patient does not have anything else to stay here at the hospital. Once oncology gives us a green signal, we can probably discharge her home and let them continue treatments as outpatient. Colon procedure can also be done and planned after she is discharged home. cc: Tawana Smith MD
[2019-04-25] MEDS: MIRALAX PO SCH (11:30)
[2019-04-25] MEDS: LANTUS INSULIN SUBQ SCH ×2 (13:25→22:05)
--- NOTE | 2019-04-25 14:10 | GASTROENTEROLOGY PROGRESS NOTE ---
DATE: 04/25/2019 SUBJECTIVE: At the time of my evaluation, patient was going down for a small bowel follow- through. I spoke with her . Patient had a colonoscopy on 04/24/2019. Findings showed a large fungating and ulcerated mass in the ascending colon, and at the cecum. Multiple biopsies were performed. The patient has been seen by Dr. Amaya. OBJECTIVE: Vital Signs: Temperature 98.0 degrees, pulse 59, respirations 16, blood pressure 132/47. LABORATORY: Hematology: WBC 17.93 hemoglobin 9.6, hematocrit 31.4, MCV 78.5, platelet 16.2. Chemistry: Sodium 136, potassium 4.8, chloride 102, CO2 of 23, BUN 44, creatinine 1.3, glucose 162. ASSESSMENT AND PLAN: 1. Metastatic colon cancer with metastasis to the brain and lung. Patient has been seen by pulmonology, oncology, and [facility]. 2. Ulcerated colon mass in the ascending colon and at the cecum. Biopsy pending. 3. Pneumonia on antibiotics. 4. Other medical problems, type 2 diabetes. 5. Hypothyroidism. PLAN: Patient has been seen by oncology and [facility]. Currently the patient is having a small bowel follow-through today. Further plans will be made as needed in collaboration with the medical team. Patient has been receiving radiation. GI will be available as needed. I have discussed this case with Dr. Deleon. Dictated by AMANDA Nixon for Arturo Deleon MD cc: AMANDA Last MD
--- NOTE | 2019-04-25 15:01 | GENERAL SURGERY PROGRESS NOTE ---
DATE: 04/25/2019 ADDENDUM: Discussed with DR. Deleon. It does not sound like the area is completely obstructing. We will get a small-bowel follow-through to see if contrast passes through the area. If it does, then may hold off on any kind of intervention so that she can get chemotherapy. If it is obstructing, may need to do some palliative diversion. cc: Jose Amaya MD
[2019-04-25] MEDS: ZOCOR PO SCH (20:51)
[2019-04-26] MEDS: DECADRON PO SCH ×3 (00:02→16:24)
[2019-04-26] MEDS: HUMALOG SUBQ SCH ×4 (06:35→21:44)
--- NOTE | 2019-04-26 07:22 | Diag Imaging Result Doc PS360 ---
EXAM: SMALL BOWEL SERIES ONLY HISTORY: mass at ileocecal valve, evaluate for obstruction TECHNIQUE: Small bowel series COMPARISON: None. FINDINGS: Mild scoliosis. Long-standing hip arthritis. Normal duodenum. Normal jejunal loops. The ileum is not distended. No mucosal irregularity. No mass identified. A tiny amount of contrast had entered the colon on the eight hour film. 19 hour film shows the majority of contrast within the colon. IMPRESSION: No bowel obstruction. Electronically signed by Warren Alberto 04/26/2019 7:19 AM
[2019-04-26] MEDS: KLONOPIN PO SCH ×2 (08:25→21:43)
[2019-04-26] MEDS: ASPIRIN EC PO SCH (08:52)
[2019-04-26] MEDS: COREG PO SCH ×2 (08:52→21:44)
[2019-04-26] MEDS: LANOXIN PO SCH (08:52)
[2019-04-26] MEDS: ISORDIL PO SCH ×3 (08:52→16:24)
[2019-04-26] MEDS: SYNTHROID PO SCH (08:53)
[2019-04-26] MEDS: MIRALAX PO SCH (08:53)
[2019-04-26] MEDS: LANTUS INSULIN SUBQ SCH ×2 (08:55→21:46)
--- NOTE | 2019-04-26 10:01 | PROGRESS NOTE ---
DATE: 04/26/2019 SUBJECTIVE: Patient currently has no new complaints. States overall she feels okay. PHYSICAL EXAMINATION: Temperature 98 degrees, pulse 51, respiratory rate 18, BP 111/47.General: Patient is awake, alert. She is in no respiratory distress. Notes that she was significantly nauseated last night, but this has improved. HEENT: Normocephalic. Neck: Supple. Cardiovascular: Regular rate. Chest: Clear, nonlabored, no wheezing. Abdomen: Soft, nondistended. Extremities: No edema. Moves all extremities. ASSESSMENT: 1. Leukocytosis. 2. Metastatic colon cancer with metastases to brain and lung. 3. Citrobacter pneumonia improved. 4. Type 2 diabetes with mild hyperglycemia of 162. 5. Chronic renal failure, creatinine 1.3. 6. Hypothyroidism. PLAN: We will continue patient in the hospital. Continue current plan. We will adjust as needed. cc: Elton Miller MD
--- NOTE | 2019-04-26 15:07 | GENERAL SURGERY PROGRESS NOTE ---
DATE: 04/26/2019 Ms. Edmonds is alimenting. She is eating quite a bit of her food. Her bowels were moving. She really has no abdominal complaints. We will continue with the current plan. cc: Po Perdue MD
--- NOTE | 2019-04-26 16:02 | GASTROENTEROLOGY PROGRESS NOTE ---
DATE: 04/26/2019 Ms. Edmonds was resting comfortably. No new complaints from GI point of view. She is having bowel movements. Small bowel follow-through did not show any evidence of obstruction. The tumor appears to be away from the ileocecal valve and has not caused any obstruction. At this point, no new suggestions. She is getting treatment as per Dr. Lange or she is about to get treatment as per Dr. Lange and she is getting radiation therapy for her brain mets. From GI perspective there is not much to add. I will be available if needed. cc: Arturo Deleon MD
[2019-04-26] MEDS: ULTRAM PO PRN (21:43)
[2019-04-26] MEDS: ZOCOR PO SCH (21:43)
[2019-04-27] MEDS: DECADRON PO SCH ×3 (00:34→16:18)
[2019-04-27] MEDS: HUMALOG SUBQ SCH ×4 (07:08→21:27)
[2019-04-27] MEDS: SYNTHROID PO SCH (08:24)
[2019-04-27] MEDS: ASPIRIN EC PO SCH (08:24)
[2019-04-27] MEDS: LANOXIN PO SCH (08:24)
[2019-04-27] MEDS: MIRALAX PO SCH (08:24)
[2019-04-27] MEDS: COREG PO SCH ×2 (08:24→21:25)
[2019-04-27] MEDS: ISORDIL PO SCH ×3 (08:24→16:18)
[2019-04-27] MEDS: LANTUS INSULIN SUBQ SCH ×2 (08:25→21:29)
[2019-04-27] MEDS: KLONOPIN PO SCH ×2 (08:33→21:25)
--- NOTE | 2019-04-27 16:33 | PROGRESS NOTE ---
DATE: 04/27/2019 INTERVAL HISTORY: Patient eating and drinking reasonably well. Saturating well on room air. Had a long conversation with the patient and friends about where we go from here. She appears to have essentially met maximum benefit of hospitalization. The patient is still pretty weak, balance is not great when walking, and still requiring assistance to get up. After significant discussion, patient was eventually amenable to at least a short stay in rehab. No other complaints. No acute events overnight. LABS: Glucose 111-376. VITAL SIGNS: T-max 98.8 degrees, pulse 59, respirations 16, blood pressure 112/53, O2 saturation 97% on room air. PHYSICAL EXAMINATION: General: No acute distress. Vital signs: As above. HEENT: Normocephalic, atraumatic. Cardiovascular: Regular rate and rhythm. No murmurs noted. Pulmonary: Largely clear to auscultation bilaterally with good air entry. No increased work of breathing. Abdomen: Soft, nontender, nondistended. Bowel sounds positive. Extremities: Peripheral pulses intact. No clubbing or cyanosis. Neurologic: Significantly hard of hearing but otherwise cranial nerves grossly intact. Mild global weakness but no other focal deficits. Psychiatric: Normal mood and affect. Awake, alert, oriented x3. Skin: No new rashes or lesions identified. ASSESSMENT AND PLAN: 1. Colon cancer with metastasis to brain and lung. Some question of obstruction initially, but patient now eating and drinking well without intervention. Does not appear that she will need stenting or immediate surgery. Monitor. 2. Possible pneumonia. The patient is status post treatment of pneumonia and off antibiotics. 3. Chronic systolic congestive heart failure. Last EF 35. Does not appear volume overloaded at this time. 4. Diabetes. Control not ideal yesterday but does appear to be somewhat better this morning. We will leave insulin doses as they are for now, but if she gets as high today as she did yesterday, we may have to adjust her sliding scale somewhat. 5. Chronic kidney disease 3. Creatinine stable on last check at 1.3. 6. Disposition. Surgery and GI both states there is nothing further to do right now as she is eating and having bowel movements without intervention. Labs stable. Off antibiotics for her pneumonia and respiratory status stable. Likely has reached maximum benefit of hospitalization. Initially discussed going home, but patient and friends express reservations about her ability to ambulate enough to be okay at home, so will likely pursue discharge to rehab tomorrow.
[2019-04-27] MEDS: ZOCOR PO SCH (21:25)
[2019-04-28] MEDS: DECADRON PO SCH ×3 (00:05→15:55)
--- NOTE | 2019-04-28 06:14 | GENERAL SURGERY PROGRESS NOTE ---
DATE: 04/28/2019 SUBJECTIVE: Patient seems to be doing okay. She is tolerating her diet. She is having bowel movements. OBJECTIVE: Vital Signs: Patient is currently afebrile. Her vital signs are stable. General: No acute distress. HEENT: Normocephalic, atraumatic. Pupils equal, round, and reactive to light. Mucous membranes moist. Oropharynx benign. Neck: Supple. Trachea midline. Cardiovascular: Regular rate and rhythm. Lungs: Grossly clear. Abdomen: Soft. Nontender. Nondistended. Extremities: Moves all extremities. Neurologic: Grossly intact. Skin: No signs of jaundice. Vascular: All extremities perfused. LABORATORY: None this morning as of yet. ASSESSMENT AND PLAN: A 74-year-old female with metastatic colon cancer. Metastatic colon cancer. At this time, a small bowel series does not seem to suggest an obstruction. Things are moving through. Recommend continued therapy with Dr. Lange. No major plans for surgical intervention. cc: Jose Amaya MD
[2019-04-28] MEDS: HUMALOG SUBQ SCH ×4 (06:41→21:00)
[2019-04-28] MEDS: KLONOPIN PO SCH ×2 (10:08→21:00)
[2019-04-28] MEDS: ISORDIL PO SCH ×3 (10:08→16:50)
[2019-04-28] MEDS: LANTUS INSULIN SUBQ SCH ×2 (10:08→21:01)
[2019-04-28] MEDS: ASPIRIN EC PO SCH (10:09)
[2019-04-28] MEDS: SYNTHROID PO SCH (10:09)
[2019-04-28] MEDS: MIRALAX PO SCH (10:09)
[2019-04-28] MEDS: COREG PO SCH ×2 (10:10→21:00)
[2019-04-28] MEDS: LANOXIN PO SCH (10:10)
--- NOTE | 2019-04-28 14:41 | PROGRESS NOTE ---
DATE: 04/28/2019 INTERVAL HISTORY: The patient is approximately stable. Continues to the eat well, is having adequate bowel movements. No recurrence of her respiratory symptoms. Still fairly weak but did a little better with physical therapy today. REVIEW OF SYSTEMS: Twelve point review of systems negative except as per interval history. VITALS: T-max 98.6 degrees, pulse 80, respirations 14, blood pressure 101/47, O2 saturation 98% on room air. PHYSICAL EXAMINATION: General: No acute distress. Vitals: As above. HEENT: Normocephalic, atraumatic. Moist mucous membranes. No cervical adenopathy. Cardiovascular: Regular rate and rhythm. No murmurs noted. Pulmonary: Clear to auscultation bilaterally with good air entry. Abdomen: Soft, nontender, nondistended. Bowel sounds positive. Extremities: Peripheral pulses intact. No clubbing or cyanosis. Neurologic: Significantly hard of hearing but cranial nerves otherwise intact. Mild global weakness but no focal deficit seen. Psychiatric: Normal mood and affect. Awake, alert, oriented x3. ASSESSMENT/PLAN: 1. Colon cancer with metastases to brain and lung. Some question of obstruction on admission but the patient has been eating and drinking well without intervention and having bowel movements. No plans for acute intervention at this time. 2. Possible pneumonia. Patient is status post treatment of possible pneumonia and doing well off antibiotics. 3. Chronic systolic congestive heart failure, last ejection fraction of 35. No evidence of significant volume overload. Coreg decreased because of bradycardia. 4. Diabetes. Fasting sugars remain reasonable but some pretty significant elevations throughout the day. We will see if oncology wants to continue the steroids or not, as that is the likely major contributor to her hyperglycemia. If they wish to continue steroids, then we will likely need to increase her Lantus some. 5. Chronic kidney disease 3. Creatinine remains approximately stable on last check. 6. Disposition. The patient is eating, drinking, and stooling well so not really doing anything else here. Off antibiotics for pneumonia for several days and doing well from a respiratory standpoint. Awaiting final hematology/oncology recommendations but if they have no further plans for inpatient evaluation or treatment for malignancy, then anticipate discharge to either rehab or home health in the morning. The patient initially wanted to go to home health but there were concerns about her being able to ambulate adequately to be okay at home so plans for rehab were made. The patient now stating that she believes she is improved and is leaning towards going home with home health again. We will see how she does with physical therapy today.
[2019-04-28] MEDS: ULTRAM PO PRN (21:00)
[2019-04-28] MEDS: ZOCOR PO SCH (21:00)
[2019-04-29] MEDS: DECADRON PO SCH ×2 (00:08→09:56)
[2019-04-29] MEDS: HUMALOG SUBQ SCH (06:02)
--- NOTE | 2019-04-29 07:57 | GENERAL SURGERY PROGRESS NOTE ---
DATE: 04/29/2019 SUBJECTIVE: Patient seems to be doing okay. She is having bowel movements. OBJECTIVE: Vital Signs: Patient is currently afebrile. Her vital signs stable. General: General exam: No acute distress. HEENT: Normocephalic, atraumatic. Pupils equal, round, reactive to light. Mucous membranes moist. Oropharynx benign. Neck: Supple, trachea midline. Cardiovascular: Regular rate and rhythm. Lungs: Grossly clear. Abdomen: Soft, nontender, nondistended. Extremities: Moves all extremities. Neurologic: Grossly intact. Skin: No signs of jaundice. Vascular: All extremities perfused. LABORATORY: None this morning as of yet. ASSESSMENT AND PLAN: 74-year-old female with metastatic colon cancer: 1. Metastatic colon cancer. At this time, a small bowel series suggests that things are moving through. There is she is tolerating her diet. 2. From a surgical point of view, no immediate plans for surgical intervention. I will follow peripherally at this point. cc: Jose Amaya MD
[2019-04-29] MEDS: SYNTHROID PO SCH (09:55)
[2019-04-29] MEDS: KLONOPIN PO SCH (09:55)
[2019-04-29] MEDS: COREG PO SCH (09:56)
[2019-04-29] MEDS: ISORDIL PO SCH (09:56)
[2019-04-29] MEDS: ASPIRIN EC PO SCH (09:56)
[2019-04-29] MEDS: MIRALAX PO SCH (09:56)
[2019-04-29 14:21] VITALS: BP 101/42
--- NOTE | 2019-04-29 15:01 | DISCHARGE SUMMARY ---
ADMISSION DATE: 04/07/2019 DISCHARGE DATE: 04/29/2019 The day of discharge, she seems to be doing okay. No major complaints. OBJECTIVE: Vital Signs: Stable. She did pretty well with physical therapy yesterday. Cardiovascular: Regular rate and rhythm. Pulmonary: Bilateral breath sounds clear to auscultation. GI: Soft, nontender, nondistended. Bowel sounds are positive. With physical therapy, she did pretty well. I think she walked 126 feet so I would say she should go home and they should not delay her chemo anymore. We will make sure she has got a front wheel walker, which I think she does, and then follow up with her oncologist, who will be Dr. Lange for further management. 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 This is a [id number] encounter note with Nu Kwan. cc: Ace Jensen MD
[2019-04-30] MEDS ORDERED: LANTUS INSULIN SUBQ SCH (09:00)
== END 2019-04-29 16:02 | disposition home health service (06) | DRG 374 ==
LOC: SUPCPDRO → ED 09:33 → 3N 15:01 → SUATTDRO 15:01 → UNDODISIN 04-09 09:25
PROVIDERS: ATTEND Internal Medicine

== ENCOUNTER 2019-05-08 11:47 | Inpatient (IN) ==
[2019-05-08] MEDS ORDERED: NS 1,000 ML IV ONE ×2 (12:12→13:41)
[2019-05-08 12:40] LABS: BASO# 0.04 X1000 (0.0-0.2); BASO% 0.2 % (0.0-0.8); EOS# 0.03 X1000 (0.0-0.7); EOS% 0.2 % (0.0-10.0); HEMATOCRIT 37.5 % (37.0-47.0); HEMOGLOBIN 11.6 g/dL (12.0-16.0); IMM GRAN# 0.61 X1000 (0.0-0.04); IMM GRAN% 3.2 % (0.0-0.5); LYMPH# 0.48 X1000 (1.2-3.4); LYMPH% 2.5 % (20.5-51.1); MCH 24.3 PG (27-31); MCHC 30.9 g/dL (33-37); MCV 78.6 FL (81-99); MONO# 0.84 X1000 (0.11-0.59); MONO% 4.4 % (1.7-9.3); MPV 9.2 FL (7.4-10.4); NEUT# 17.27 X1000 (1.4-6.5); NEUT% 89.5 % (42.2-75.2); PLT 305 X1000 (130-400); RBC 4.77 XMIL (4.2-5.4); RDW 18.6 % (11.5-14.5); WBC 19.27 X1000 (4.8-10.8)
[2019-05-08 12:47] LABS: BANDS 4 % (0-1); LYMPHS 6 % (21-51); SEGS 90 % (42-75)
[2019-05-08 13:02] LABS: ALB/GLOB RATIO 0.8; ALBUMIN 2.8 g/dL (3.5-5.0); CALCIUM 10.3 mg/dL (8.8-10.2); CREATININE 1.3 mg/dL (0.5-0.9); MAGNESIUM 2.1 mg/dL (1.5-2.7); POTASSIUM 4.1 mmol/L (3.5-5.1); TOTAL BILIRUBIN 0.48 mg/dL (0.20-1.00); TOTAL PROTEIN 6.5 g/dL (6.3-8.3)
[2019-05-08 14:18] LABS: URINE SOURCE CLEAN CATCH
--- NOTE | 2019-05-08 14:22 | EKG Report ---
Test Performed on : 05/08/2019 12:18:15 PM Test Reason : DEHYDRATION/JIMMIE Blood Pressure : / mmHG Vent. Rate : 107 BPM Atrial Rate : 107 BPM P-R Int : 168 ms QRS Dur : 120 ms QT Int : 330 ms P-R-T Axes : 055 -63 109 degrees QTc Int : 440 ms Sinus tachycardia. with occasional premature ventricular complexes. Left anterior fascicular block Septal infarct , age undetermined Possible Lateral infarct , age undetermined Abnormal ECG When compared with ECG of 07-APR-2019 10:48, (Unconfirmed) AL interval has decreased ST now depressed in Lateral leads Unconfirmed Result
[2019-05-08 14:25] LABS: BILIRUBIN URINE NEGATIVE (NEGATIVE); BLOOD URINE NEGATIVE (NEGATIVE); COLOR YELLOW; GLUCOSE URINE 100 mg/dL (NEGATIVE); KETONE URINE NEGATIVE (NEGATIVE); LEUKOCYTES URINE NEGATIVE (NEGATIVE); NITRITE URINE NEGATIVE (NEGATIVE); PROTEIN URINE TRACE mg/dL (NEGATIVE); SP GRAVITY URINE 1.015; TURBIDITY URINE CLEAR (CLEAR); UROBILINOGEN URINE NORMAL (NORMAL)
[2019-05-08 14:26] LABS: UR EPITHELIAL CELLS <10 /HPF (<10); URINE BACTERIA NEGATIVE /HPF; URINE RBC <10 /HPF (<10); URINE WBC <10 /HPF (<10)
[2019-05-08] MEDS ORDERED: ZOFRAN IV PRN (15:36)
[2019-05-08] MEDS ORDERED: SODIUM CHLORIDE 0.9% INJ SCH (16:15)
--- NOTE | 2019-05-08 16:52 | PROVIDER DOCUMENTATION ---
This chart was entered by Jess Beach Scribe, acting as scribe for Joey Hayes MD. HPI-General Adult - General Chief Complaint: Altered Mental Status Stated Complaint: AMS Time Seen by Provider: 05/08/19 11:54 Source: patient, family Allergies/Adverse Reactions: Patient Allergies Allergy/AdvReac Type Severity Reaction Status Date / Time No Known Allergies Allergy Verified 05/08/19 12:27 Home Medications: Home Medication List Medication Instructions Recorded Confirmed Last Taken Type Aspirin [Aspir-Low] 1 tab PO DAILY 10/17/17 05/08/19 05/07/19 History Simvastatin 20 mg PO HS 10/17/17 05/08/19 05/07/19 History Cyanocobalamin (Vitamin B-12) 1,000 mcg PO DAILY 11/13/17 05/08/19 05/07/19 History [Vitamin B12] Isosorbide Dinitrate [Isordil] 20 tab PO TID 11/13/17 05/08/19 05/07/19 History Glipizide [Glucotrol] 5 mg PO DAILY 01/22/18 05/08/19 05/07/19 History Furosemide 40 mg PO DAILY 04/07/19 05/08/19 05/07/19 History Insulin Glargine,Hum.rec.anlog 20 unit SQ QPM 04/07/19 05/08/19 05/07/19 History [Lantus Solostar] Insulin Glargine,Hum.rec.anlog 40 units SQ QAM 04/07/19 05/08/19 05/07/19 History [Lantus Solostar] Levocetirizine Dihydrochloride 5 mg PO DAILY 04/07/19 05/08/19 05/07/19 History [Xyzal] Levothyroxine Sodium 137 mcg PO DAILY 04/07/19 05/08/19 05/07/19 History Carvedilol [Coreg] 3.125 mg PO BID #60 tab 04/28/19 05/08/19 05/07/19 Rx Clonazepam [Klonopin] 0.5 mg PO BID PRN PRN #30 tab 04/28/19 05/08/19 05/07/19 Rx Polyethylene Glycol 3350 [Miralax] 17 gm PO DAILY powder, packet 1005/08/19 05/07/19 Rx Tramadol [Ultram] 50 mg PO Q6H PRN PRN #30 tab 04/28/19 05/08/19 05/07/19 Rx Dexamethasone [Decadron] 4 mg PO TID #90 tab 04/29/19 05/08/19 05/07/19 Rx Magnesium Citrate [Citrate of 296 ml PO ONCE #1 bottle 05/04/19 05/08/19 05/07/19 Rx Magnesia] - History of Present Illness -Gen Adult Nature of Presenting Problems: Patient is a 74 year old female who presents to the ED with family for admis meredith. Family states patient was seen at Dr. Rivera's office prior to arrival and was informed Dr. Rivera wanted her admitted. Family reports patient was recently diagnosed with brain, colon and lung cancer. Daughter states patient has had 10 rounds of radiation and is waiting for low dose chemo pill to arrive. Patient does not report pain. Daughter states patient is on Lasix for CHF. Patient state s she does not want CPR or intubation. Location of Pain/Injury: reports: none Quality of Pain: reports: none Severity: reports: mild Onset/Duration: reports: gradual Timing: reports: still present, getting worse Similar Symptoms Previously?: Yes Recently seen or treated by another doctor?: Yes Review of Systems - Adult - REVIEW OF SYSTEMS - ADULT ROS:: ROS per family Constitutional: reports: no symptoms reported Eyes: reports: no symptoms reported Ears, Nose, Mouth & Throat: reports: no symptoms reported Cardiovascular: reports: no symptoms reported Respiratory: reports: no symptoms reported Gastrointestinal: reports: poor appetite. denies: nausea, vomiting Genitourinary: reports: no symptoms reported Musculoskeletal: reports: muscle weakness. denies: back pain, neck pain Integumentary: reports: no symptoms reported Neurological: reports: no symptoms reported Psychiatric: reports: no symptoms reported Endocrine: reports: no symptoms reported Hematologic/Lymphatic: reports: no symptoms reported Allergic/Immunologic: reports: no symptoms reported All Other Systems: Reviewed and Negative Past History - Adult - PAST MEDICAL HISTORY-ADULT Review of Records: reports: Old Records Reviewed, Nursing Assessment Review, Medications Reviewed, Social history reviewed & non-contributory. Major Childhood Illnesses: reports: denies history Cardiovascular: reports: CHF, HTN Respiratory: reports: cancer (lung) Gastrointestinal: reports: cancer (colon) Obstetrical/Gynecological: reports: denies history Genitourinary: reports: kidney disease Musculoskeletal: reports: denies history Neurological: reports: cancer/tumor (cancer) Endocrine/Immune: reports: Diabetes, thyroid disorder Other Conditions: reports: denies history - PRIOR SURGERIES/PROCEDURES Surgical/Procedure History: reports: tonsillectomy - IMMUNIZATION STATUS Childhood Immunizations: See Nurse Assessment Flu Vaccine: See Nurse Assessment - FAMILY HISTORY Family History: reviewed, not pertinent - SOCIAL HISTORY Smoking: denies Substance Use: denies Physical Exam-General - PHYSICAL EXAM-ADULT Initial Vital Signs Reviewed: Yes - CONSTITUTIONAL General Appearance: alert, no apparent distress. negative: lethargic - EYES Eyes: pink conjunctivae. negative: pale conjunctivae, scleral icterus - HEAD, EARS, NOSE, MOUTH & THROAT HENMT: normocephalic/atraumatic, other (mild dry mucous membranes). negative: angioedema - RESPIRATORY Respiratory: chest non-tender, lungs clear, normal breath sounds. negative: crackles, stridor - CARDIOVASCULAR Cardiovascular: normal peripheral pulses, regular rate, rhythm. negative: tachy cardia - GASTROINTESTINAL (ABDOMEN) Abdominal Exam: normal bowel sounds, non tender, soft. negative: guarding, rebound - SKIN Integumentary: normal color, normal turgor, warm/dry. negative: diaphoresis, pallor - NEUROLOGIC Neurologic: grossly normal. negative: aphasia, facial droop - PSYCHIATRIC Psych/Mental Status: tearful. negative: normal mood/affect, anxious Progress - PLAN OF CARE/RESULTS Progress/Plan/Lab Results: Vital Signs - 8 hr 05/08/19 11:54 Temperature 98.8 F Pulse Rate 106 H Respiratory Rate 14 Blood Pressure 131/72 O2 Sat by Pulse Oximetry 97 Result Diagrams: 05/08/19 12:25 05/08/19 12:25 - EKG 1 Time of EKG reading by physician:: 12:18 EKG Read and Signed by:: Joey Hayes EKG Interpretation (*Must complete 3 of following elements*): Abnormal (possible lateral infarct, age undetermined) Rate: 107 Rhythm: sinus tachycardia with occasional premature ventricular complexes [place]: normal [place] Interval: normal Comments: left anterior fascicular block; septal infarct, age undetermined; - CONSULTS/PCP/HOSPITALIST Notification #1 *Consult/PCP/Hospitalist*: AMANDA Townsend for Hospitalist Time Discussed: 13:55 Reason/Comments: Dr. Hayes consulted with [place] about patient. Consult Disposition: Will see in ED, Admit #2 Consult: Dr. Rivera Time Discussed: 14:30 Reason/Comments: Dr. Hayes consulted with Dr. Rivera about patient. Consult Disposition: other (Dr. Rivera stated patient vomited bright red blood in his office.) #3 Consult: AMANDA Townsend for Hospitalist Time Discussed: 14:51 Reason/Comments: Dr. Hayes consulted with [place] about information from Dr. Rivera. Departure - Departure Date of Disposition Decision: 05/08/19 Time of Disposition Decision: 13:58 DIAGNOSIS: Metastatic colon cancer in female, Renal azotemia Disposition: ADMITTED INPATIENT 09 Certified Medical Emergency: Emergent Condition: Serious - Critical Care Note This patient required my direct & personal management of CC.: No Attestation - Physician/ KARTIK Attestation The physician spent face to face time with patient:: Yes Advanced Practice Provider documentation review:: Supervising physician onsite and consulted in the evaluation and care of this patient. The physician did have a face to face encounter with the patient. This chart was documented by the indicated scribe, (Jess Beach Scribe) and accurately reflects the services I performed and decisions made by me, Joey Hayes MD, as attested by the provider's signature.
[2019-05-08] MEDS: ISORDIL PO SCH (18:16)
[2019-05-08] MEDS: PROTONIX IV SCH (18:16)
[2019-05-08] MEDS: DECADRON PO SCH (18:16)
[2019-05-08] MEDS: NS 1,000 ML IV SCH (18:27)
--- NOTE | 2019-05-08 18:47 | HISTORY AND PHYSICAL ---
PRIMARY CARE PROVIDER: Dr. Jarred Rivera. CHIEF COMPLAINT: Lethargy, extremity pain, nausea and vomiting with pink-tinged to red sputum with mucus. HISTORY OF PRESENT ILLNESS: Ms. Edmonds is a 74-year-old female with a past medical history of type 2 diabetes, hyperlipidemia and hypertension, who had presented to [facility] Emergency Department back in early April with complaints of syncope. They did a full workup on her, and she was found to have a metastatic cancer to the lung and brain, with likely GI as primary. Bronchoscopy revealed a necrotic mass, with pathology revealing likely GI primary metastatic cancer with metastasis to the brain. The patient has undergone several radiation treatments and was going to start p.o. chemotherapy I believe Sunday or Sunday with Dr. Lange, who is her primary oncologist. Daughter reports since her discharge on 04/29/2019, she states that she does not really any answer their questions or there will be a delay in answering questions. She has pain in her right hip, her bilateral ankles and her bilateral knees. She states anytime they go to move her, she will yell out in pain. Home health actually came to help her out yesterday and she swung at the nurse, which the daughter stated is totally uncharacteristic for her. She also reported it had been a week since her last bowel movement; however, last night she had a large BM. She also had some nausea and vomiting last night. She reported she threw up all her dinner. She went to follow up with her primary care, Dr. Jarred Rivera today. It was initially relayed that was imminent; however, upon evaluation in the ED, she does appear to be dehydrated. Dr. Rivera called back to talk to the ED physician to get an update, and he did report that she had some nausea and vomiting in his office, with some pink to red-tinged vomitus as well as some mucus mixed in; however, per daughter's report at the bedside she feels like her mother has perked up after receiving IV fluids. They did complain of some generalized lower extremity edema, which could possibly be secondary to the Decadron that she has been taking along with other medications, so we will admit her overnight. Continue with IV hydration. We will let Oncology as well as GI take a look at her. When I walked in for her evaluation she was eating, and felt like she had a healthy appetite and wanted to eat, which her daughter said this is also new for her. Since being discharged she has not really had much of an appetite. We will continue with IV fluids overnight and reassess in the a.m. PAST MEDICAL HISTORY: 1. New diagnosis of metastatic lung cancer, with GI suspected primary with brain metastasis. She has been undergoing several radiation treatments and was to start oral chemotherapy soon. Palliative Care did speak with the patient and the family. Initially she was a Do Not Resuscitate/Allow Natural , and then after further discussion she wants to be a Full Code and at least continue to try with treatment. 2. Diabetes mellitus type 2. 3. Hyperlipidemia. 4. Hypertension. 5. Steroid-induced hyperglycemia. PAST SURGICAL HISTORY: 1. Adenoidectomy. 2. Bronchoscopy. 3. Colonoscopy with biopsy. SOCIAL HISTORY: No history of tobacco, alcohol or illicit drug use. She is and has supportive family at the bedside. MEDICATIONS: Home medications are being compiled. ALLERGIES: No known drug allergies. REVIEW OF SYSTEMS: Twelve-point review of systems completed and negative except for those mentioned in HPI. PHYSICAL EXAMINATION: VITAL SIGNS: Temperature 98.2 degrees, heart rate 87, respirations 19, blood pressure 91/55, O2 is 97% on room air. GENERAL: Ms. Edmonds is sitting up in the bed in no acute distress. HEENT: Atraumatic, normocephalic. PERRL. Mucous membranes are pale, dry. NECK: Supple. Trachea midline. CARDIOVASCULAR: S1, S2 appreciated. No murmurs, gallops or rubs noted. LUNGS: Sounds clear bilaterally. GASTROINTESTINAL: Soft, nontender, nondistended. Positive bowel sounds x4 quadrants. EXTREMITIES: Lower extremities with generalized edema. NEUROLOGIC: The patient is awake, alert. She is answering some questions. She is feeding herself. Did not notice any focal deficits. LABORATORY DATA: White count 19, hemoglobin and hematocrit 11 and 35, platelet count is 305,000. Sodium 134, potassium 4.1, BUN 61, creatinine 1.3, blood glucose is 274, magnesium 2.1. Urinalysis is negative. ASSESSMENT AND PLAN: 1. Dehydration. We will continue with intravenous fluids overnight. 2. Acute kidney injury on chronic kidney disease. We will continue with intravenous hydration. 3. Steroid-induced hyperglycemia. We will initiate her back on sliding scale. 4. Nausea and vomiting with traces of pink to red-tinged vomitus as well as mucus. We will go ahead and consult Gastroenterology. She was eating lunch in her room at the time of assessment without any issues. 5. Steroid-induced leukocytosis. I do not see any obvious signs or sources of infection. No complaints of cough, fever or chills. 6. Hyperlipidemia. 7. Hypertension. 8. Recent diagnosis of metastatic cancer to the lung and brain, likely primary gastrointestinal. We will consult Oncology. 9. Further recommendations to follow physician evaluation, laboratory and diagnostic data. Dictated by AMANDA Fry for Quan Briggs MD Addendum: Patient seen and examined by myself. Agree with NAVAL SCIENCE TEACHER note. It reflects my assessment and plan. Patient is being admitted to hospital for dehydration and JIMMIE. Will start IV fluids and check BMP daily. Will also consult Oncology to see what else we can do for this patient. Will monitor her closely. cc: MD Nate Mir MD Micah A. Howard, MD MTDD
[2019-05-08] MEDS: LANTUS INSULIN SUBQ SCH (21:09)
[2019-05-08] MEDS: ZOCOR PO SCH (21:10)
[2019-05-08] MEDS: COREG PO SCH (21:10)
[2019-05-09 05:27] LABS: BASO# 0.01 X1000 (0.0-0.2); BASO% 0.1 % (0.0-0.8); EOS# 0.01 X1000 (0.0-0.7); EOS% 0.1 % (0.0-10.0); HEMATOCRIT 29.4 % (37.0-47.0); HEMOGLOBIN 9.1 g/dL (12.0-16.0); IMM GRAN# 0.32 X1000 (0.0-0.04); IMM GRAN% 2.4 % (0.0-0.5); LYMPH# 0.28 X1000 (1.2-3.4); LYMPH% 2.1 % (20.5-51.1); MCH 24.5 PG (27-31); MONO# 0.48 X1000 (0.11-0.59); MONO% 3.6 % (1.7-9.3); MPV 9.4 FL (7.4-10.4); NEUT# 12.07 X1000 (1.4-6.5); NEUT% 91.7 % (42.2-75.2); PLT 243 X1000 (130-400); RBC 3.72 XMIL (4.2-5.4); RDW 18.2 % (11.5-14.5); WBC 13.17 X1000 (4.8-10.8)
[2019-05-09 06:00] LABS: ALB/GLOB RATIO 0.6; ALBUMIN 2.1 g/dL (3.5-5.0); CALCIUM 9.4 mg/dL (8.8-10.2); CREATININE 1.2 mg/dL (0.5-0.9); MAGNESIUM 1.9 mg/dL (1.5-2.7); TOTAL BILIRUBIN 0.29 mg/dL (0.20-1.00); TOTAL PROTEIN 5.5 g/dL (6.3-8.3)
[2019-05-09] MEDS: DECADRON PO SCH ×3 (09:33→17:17)
[2019-05-09] MEDS: ISORDIL PO SCH ×3 (09:33→17:16)
[2019-05-09] MEDS: ASPIRIN EC PO SCH (09:33)
[2019-05-09] MEDS: COREG PO SCH ×2 (09:33→22:24)
[2019-05-09] MEDS: VITAMIN B-12 PO SCH (09:33)
[2019-05-09] MEDS: GLUCOTROL PO SCH (10:20)
[2019-05-09] MEDS: NS 1,000 ML IV SCH ×2 (10:20→22:27)
[2019-05-09] MEDS: SYNTHROID PO SCH (10:20)
[2019-05-09] MEDS: LANTUS INSULIN SUBQ SCH ×2 (10:21→22:24)
[2019-05-09] MEDS: MIRALAX PO SCH (10:22)
[2019-05-09] MEDS: HUMALOG SUBQ SCH ×4 (12:39→21:00)
--- NOTE | 2019-05-09 13:40 | PROGRESS NOTE ---
DATE: 05/09/2019 SUBJECTIVE: Patient reports feeling fine. He is eating okay. No nausea or vomiting. Not complaining of any pain. OBJECTIVE: Vital Signs: Temperature 97.6 degrees, heart rate 96, respiratory rate 12, blood pressure 108/51, O2 saturation 98% on room air. Examination: This is a chronically ill- appearing, 74-year-old female lying in bed, in no acute distress. Cardiovascular: S1, S2 heard. No murmurs, gallops, or rubs. Regular rate and rhythm. Respiratory: Clear bilaterally to auscultation. No work of breathing or using accessory muscles. Abdomen: Soft, nontender to palpation. Bowel sounds present. No organomegaly. Extremities: Lower extremity with generalized edema. Peripheral pulses present in both legs. Neurological: Patient is alert and oriented x3. Eating okay. LABORATORY DATA: Reviewed and white cell count is 13.17, hemoglobin 9.1, hematocrit 94.4, and platelets 243,000 with a BMP that reveals creatinine of 1.2. ASSESSMENT AND PLAN: 1. Acute kidney injury secondary to dehydration. The patient is on intravenous fluids. Creatinine is slightly better today. Patient looks clinically much better. We will continue with the same management. 2. Diabetes mellitus type 2. Will restart Lantus and start sliding scale insulin. 3. Nausea and vomiting, resolved. Because there was a red tinged vomitus, GI has been consulted but they plan not to do any procedure unless we think that clinically she is bleeding. Her hemoglobin has dropped some, that could be also attributed to dilutional anemia but at this point, we will continue to monitor BMP. 4. Hyperlipidemia. We will continue home medications. 5. Hypertension. Blood pressure is under control. We will continue with the same management. 6. Recent diagnosis of metastatic cancer to the lung and brain, likely primary GI. Oncology has been consulted. They are not planning to provide any treatment while this patient is in the hospital. 7. Disposition: I think this patient gets better, dehydration resolved, I think she can be discharged tomorrow. cc: Quan Briggs MD [facility]
[2019-05-09] MEDS: PROTONIX IV SCH (17:17)
--- NOTE | 2019-05-09 17:38 | CONSULTATION ---
DATE OF CONSULTATION: 05/09/2019 ADMITTING PHYSICIAN: Quan Briggs MD. REQUESTING PHYSICIAN: Quan Briggs MD. We appreciate this consult. CHIEF COMPLAINT: Metastatic lung cancer to the brain. HISTORY OF PRESENT ILLNESS: Ms. Edmonds is a 74-year-old female known to Dr. Lange recently diagnosed with metastatic lung cancer to the brain. She has undergone radiation therapy which she has completed, and is to begin treatment with Dr. Lange with MVASI and Xeloda. The patient was seen briefly today, and appears to be in no acute distress. She is admitted for volume depletion and acute kidney insufficiency. She is scheduled to begin treatment with Dr. Lange next week. We will hold off treatment until the patient's acute illness improves. For any questions regarding the patient's oncologic diagnosis an on-call physician is available over the weekend. We will see the patient in consultation on Sunday. Dictated by AMANDA Marquez for Nate Lange MD cc: AMANDA Marquez MD
--- NOTE | 2019-05-09 18:25 | GASTROENTEROLOGY CONSULTATION ---
DATE: 05/09/2019 REASON FOR CONSULT: Hematemesis. HISTORY OF PRESENT ILLNESS: Ms. Edmonds is a 74-year-old female with past medical history of hypertension, type 2 diabetes, hyperlipidemia, and hypothyroidism. She had been to the ER last Sunday with abdominal pain, she received some pain medication and was discharged after 5 hours. Her daughter mentioned that when she had her bowel movement on Sunday it was brown in color, soft and pasty in consistency and she was also throwing up, her emesis was light pink. She is currently on steroid Decadron. On when she went to see Dr. Rivera, he was concerned because she was not alert, oriented and she was not responding appropriately to his questions. She looked weak and he asked her to come to the ER. While she was in the ER, she had 3 bowel movements liquid in consistency. The patient has a history of colon cancer which has metastasized to her lungs and head. She has received so far 10 radiations to the head and she will be starting her oral chemotherapy with Xeloda and Avastin. Family is concerned that patient is not alert and does not respond well to most of their questions. They think that it is her cancer that is causing a decline in her mental condition. The patient currently denies any abdominal pain, nausea, or vomiting. PAST MEDICAL HISTORY: Hypothyroidism, type 2 diabetes, congestive heart failure. Arthritis, hypertension, hyperlipidemia, colon cancer metastasized to lungs and the head. PAST SURGICAL HISTORY: Adenoidectomy. HOME MEDICATIONS: Simvastatin 20 mg HS, Aspirin 81 mg daily, Vitamin B12 1000 mcg daily, Isordil 20 mg TID, Glipizide 5 mg daily, Lantus Solostar 40 units am.20 units pm, Xyzal 5 mg daily, Levothyroxine 137 mcg daily, Lasix 40 mg daily, Miralax 17 g daily, Tramadol 50 mg PRN, Coreg 3.125 mg BID, Klonopin 0.5 mg PRN, Decadron 4 mg TID. ALLERGIES: No known drug allergies. SOCIAL HISTORY: She is , lives with her . She has 2 kids, 1 daughter and 1 son, denied any smoking, alcohol, or illicit drug use. REVIEW OF SYSTEMS: As per HPI. Otherwise, 12 point review of system is negative. PHYSICAL EXAMINATION: Vital Signs: Temperature 97.6 degrees, pulse 96, respirations 12, blood pressure 108/51, oxygen saturation 98% on room air. The patient's weight is 149 pounds. BMI is 22.0 kg/m2. General: She is alert, oriented x2, in no acute distress. HEENT: Pale conjunctivae. No icterus. PERRL. Neck: Supple. Lungs: Clear to auscultation in the anterior woodward. Cardiovascular: The patient is tachycardic. Abdomen: Soft, nontender, nondistended. Active bowel sounds heard in all 4 portions. Extremities: No clubbing or cyanosis. Generalized edema in the lower extremities. Pedal pulses 2+ present bilaterally. Neurologic: She is alert, oriented x2, nonfocal. Cranial nerves 2-12 grossly intact. LABORATORY DATA: WBCs 13.17, RBC 3.72, hemoglobin 9.1, hematocrit 29.4, platelet count 243,000. Sodium 137, potassium 4.0, chloride 103, carbon dioxide 21, anion gap 13, BUN 55, creatinine 1.2, glucose 238, calcium 9.4, magnesium 1.9. Total bilirubin is 0.29, AST 13, ALT 25, alkaline phos 175, albumin 2.1. Urinalysis, trace of protein. Urine glucose 100. IMPRESSION: Hematemesis Dehydration Nausea/Vomiting Hx of Colon Cancer metastasis to lungs and head Type II Diabetes Hyperlipidemia Hypertension PLAN: The patient is on IV fluids 75 mL/h. She is on antiemetics, Zofran 4 mg every 4 hours for her nausea and vomiting. Patient is receiving Protonix 40 mg daily for her GI bleed. She is on insulin per PCP she is receiving 20 units of Lantus p.m. and 40 units of Lantus a.m. and humalog sliding scale. For bowel regimen the patient is on MiraLAX 17 grams p.o. daily. Her sodium is 137, potassium is 4.0, it has stabilized. Hemoglobin 9.1 and hematocrit is 29.4. Patient is not clinically bleeding, we will therapeutically manage her symptoms with IV fluids and medications. Patient has currently denying any nausea, vomiting or abdominal pain. We will monitor her CBC, BMP and follow the plan of care per PCP. This plan was discussed with Dr. Marti. Thank you for your consult. Please call us with any further questions or concerns. Dictated by AMANDA Gilman for Jackson Marti MD Physician Attestation I have seen and examined the patient. I have discussed and reviewed the the note by Rhoda PATEL and agree with findings and plan as documented. In brief, Ms. Mya Edmonds is a 74 year old woman with recent diagnostic of metastatic colon cancer with lung and brain mets receiving steroids and radiation who presented with episode of N/V and "pink-tinged mucus". She is hemodynamically stable and H/H are stable. FOBT negative. She had multiple normal bowel movements since admission. No abdominal pain. Recommend transition PPI to PO once daily for GI ppx in setting of aspirin and steroid use. Continue antiemetics prn. Her anemia is 2/2 to known colon cancer. Will hold off on EGD at this time. Please call with questions. MTDD
[2019-05-09] MEDS: ZOCOR PO SCH (22:24)
[2019-05-10] MEDS: KLONOPIN PO PRN ×2 (00:22→20:33)
[2019-05-10] MEDS: HUMALOG SUBQ SCH ×5 (06:28→20:34)
[2019-05-10] MEDS: PROTONIX PO SCH (06:34)
[2019-05-10] MEDS: NS 1,000 ML IV SCH ×2 (06:37→20:04)
--- NOTE | 2019-05-10 07:33 | PROGRESS NOTE ---
DATE: 05/10/2019 SUBJECTIVE: The patient reports eating better. According to nursing staff, her blood sugar has been low of 67 so she was given some juice, some pudding. Overall this patient is doing better, although still weak. OBJECTIVE: Vital Signs: Temperature 97.6 degrees, heart rate 64, respiratory rate 18, blood pressure 127/46, O2 saturation 97% on room air. General examination: This is a chronically ill- appearing, 74-year-old female lying in bed, in no acute distress. Cardiovascular: S1, S2 heard. No murmurs, gallops, or rubs. Regular rate and rhythm. Respiratory: Clear bilaterally to auscultation. No work of breathing or using accessory muscles. Abdomen: Soft, nontender to palpation. Bowel sounds present. No organomegaly. Extremities: No clubbing, cyanosis, or edema. Peripheral pulses present in both legs. Neurological: Patient alert and oriented x3. Moves 4 extremities. LABORATORY DATA: Pending at time of my dictation. ASSESSMENT AND PLAN: 1. Acute kidney injury secondary to dehydration. Patient continues to be on gentle IV fluids, hydration with normal saline at 75 mL per hour. Labs are pending at time of my dictation. We will continue to monitor. 2. Diabetes mellitus type 2. Patient is on Lantus 40 units in the day and 20 units at night and she was started on Humalog sliding scale high doses. Because of this low blood sugar we are going to hold the doses of Lantus in the morning. We will decrease the doses of Humalog to small doses sliding scale. We will continue to monitor. 3. Hyperlipidemia. Will continue home medications. 4. Hypertension. Blood pressure is under control. We will continue with same management. 5. Recent diagnosis of metastatic cancer to lung and brain likely primary GI. Oncology has been consulted. They are not planning to provide any active treatment for that condition while this patient is in the hospital. 6. Disposition. I think this patient is getting better. So, at this point, we are keeping this patient 1 more day. Continue with IV fluids and adjusting the dosage to her diabetes medication and if she is feeling better tomorrow we will let her go. cc: Quan Briggs MD
[2019-05-10] MEDS: COREG PO SCH ×2 (09:26→20:33)
[2019-05-10] MEDS: SYNTHROID PO SCH (09:26)
[2019-05-10] MEDS: ASPIRIN EC PO SCH (09:26)
[2019-05-10] MEDS: ISORDIL PO SCH ×3 (09:26→17:25)
[2019-05-10] MEDS: DECADRON PO SCH ×3 (09:26→17:25)
[2019-05-10] MEDS: MIRALAX PO SCH ×2 (09:26→09:30)
[2019-05-10] MEDS: VITAMIN B-12 PO SCH (09:26)
[2019-05-10] MEDS: GLUCOTROL PO SCH (09:26)
[2019-05-10] MEDS: LANTUS INSULIN SUBQ SCH ×2 (09:30→20:33)
[2019-05-10] MEDS: ULTRAM PO PRN (20:34)
[2019-05-10] MEDS: ZOCOR PO SCH (20:34)
[2019-05-11] MEDS: PROTONIX PO SCH (06:14)
[2019-05-11] MEDS: HUMALOG SUBQ SCH ×4 (06:19→21:26)
[2019-05-11] MEDS: VITAMIN B-12 PO SCH (08:53)
[2019-05-11] MEDS: DECADRON PO SCH ×3 (08:53→16:49)
[2019-05-11] MEDS: GLUCOTROL PO SCH (08:53)
[2019-05-11] MEDS: ISORDIL PO SCH ×3 (08:53→16:49)
[2019-05-11] MEDS: ASPIRIN EC PO SCH (08:53)
[2019-05-11] MEDS: COREG PO SCH ×2 (08:53→20:34)
[2019-05-11] MEDS: SYNTHROID PO SCH (08:53)
[2019-05-11] MEDS: MIRALAX PO SCH (08:54)
[2019-05-11] MEDS: LANTUS INSULIN SUBQ SCH ×2 (08:55→20:34)
--- NOTE | 2019-05-11 16:18 | PROGRESS NOTE ---
DATE: 05/11/2019 SUBJECTIVE: The patient reports eating better. She looks much better after IV hydration. Daughter who was at bedside at time of admission reports that she looks and feels much better as well. OBJECTIVE: Vital Signs: Temperature 97.9 degrees, heart rate 59, respiratory 16, blood pressure 114/41, O2 saturation 97% on room air. General Examination: This is a chronically ill-appearing, 74-year-old female lying in bed, in no acute distress. Cardiovascular: S1, S2 heard. No murmurs, gallops, or rubs. Regular rate and rhythm. Respiratory: Clear bilaterally to auscultation. No work of breathing or using accessory muscles. Abdomen: Soft, nontender to palpation. Bowel sounds present. No organomegaly. Extremities: No clubbing, cyanosis, or edema. Peripheral pulses present in both legs. Neurological: Patient is alert and oriented x3. Moves four extremities. LABORATORY DATA: Blood sugars are 187 this morning. There are no labs today. ASSESSMENT AND PLAN: 1. Acute kidney injury secondary to dehydration. The patient continues to be on gentle intravenous fluids with normal saline at 75 mL per hour. She is feeling definitely much better. At this point, we will continue to monitor. 2. Diabetes mellitus type 2. We will continue with Lantus in the morning and also at bedtime. On Humalog sliding scale as well. 3. Hyperlipidemia. We will continue home medications. 4. Hypertension. Blood pressure is under control. We will continue with same management. 5. Recent diagnosis of metastatic cancer to the lung and brain, likely primary gastrointestinal cancer. Oncology has been consulted. They are not planning to provide any active treatment for this condition while this patient is in the hospital. DISPOSITION: The patient was basically admitted to the hospital because she was not feeling good, looked dehydrated, became very weak. At this time, patient looks much more stable. Family is concerned that they will not be able to take care of her if she is discharged, so family and patient request rehab facility for her. So, we are going to consult social secretary. We will put a consult for physical therapy and occupational therapy as well. cc: Quan Briggs MD
[2019-05-11] MEDS: KLONOPIN PO PRN (20:34)
[2019-05-11] MEDS: ZOCOR PO SCH (20:34)
[2019-05-11] MEDS: NS 1,000 ML IV SCH (23:11)
[2019-05-12] MEDS: ULTRAM PO PRN (04:03)
[2019-05-12] MEDS: HUMALOG SUBQ SCH ×4 (06:29→20:36)
[2019-05-12] MEDS: PROTONIX PO SCH (06:30)
[2019-05-12] MEDS: NS 1,000 ML IV SCH ×2 (06:50→22:47)
[2019-05-12] MEDS: DECADRON PO SCH ×3 (08:23→18:36)
[2019-05-12] MEDS: ISORDIL PO SCH ×3 (08:23→18:36)
[2019-05-12] MEDS: GLUCOTROL PO SCH (08:23)
[2019-05-12] MEDS: COREG PO SCH ×2 (08:23→20:39)
[2019-05-12] MEDS: MIRALAX PO SCH (08:23)
[2019-05-12] MEDS: SYNTHROID PO SCH (08:23)
[2019-05-12] MEDS: VITAMIN B-12 PO SCH (08:23)
[2019-05-12] MEDS: ASPIRIN EC PO SCH (08:23)
[2019-05-12] MEDS: LANTUS INSULIN SUBQ SCH ×2 (08:38→20:39)
[2019-05-12 12:24] LABS: BASO# 0.05 X1000 (0.0-0.2); BASO% 0.2 % (0.0-0.8); HEMATOCRIT 30.8 % (37.0-47.0); HEMOGLOBIN 9.3 g/dL (12.0-16.0); IMM GRAN# 1.04 X1000 (0.0-0.04); INR 1.08; LYMPH# 0.85 X1000 (1.2-3.4); LYMPH% 4.1 % (20.5-51.1); MCH 24.2 PG (27-31); MCHC 30.2 g/dL (33-37); MCV 80.2 FL (81-99); MONO# 0.77 X1000 (0.11-0.59); MONO% 3.7 % (1.7-9.3); MPV 8.8 FL (7.4-10.4); NEUT# 18.15 X1000 (1.4-6.5); PLT 300 X1000 (130-400); PROTIME 14.1 Seconds (11.0-16.0); RBC 3.84 XMIL (4.2-5.4); RDW 18.7 % (11.5-14.5); WBC 20.86 X1000 (4.8-10.8)
[2019-05-12 12:47] LABS: BANDS 8 % (0-1); MONO 12 % (1-9)
[2019-05-12 12:49] LABS: HYPOCHROM 1+; LYMPHS 2 % (21-51); SEGS 74 % (42-75)
[2019-05-12 12:51] LABS: AGAP 7; ALB/GLOB RATIO 0.8; ALBUMIN 2.2 g/dL (3.5-5.0); ALKALINE PHOSPHATASE 254 U/L (32-104); BUN 45 mg/dL (8-22); CALCIUM 9.3 mg/dL (8.8-10.2); CHLORIDE 107 mmol/L (98-107); COSMO 279; CREATININE 0.9 mg/dL (0.5-0.9); ESTIMATED GFR > 60; GLUCOSE 82 mg/dL (70-104); GOT 22 U/L (10-30); GPT 35 U/L (10-36); POTASSIUM 5.2 mmol/L (3.5-5.1); SODIUM 134 mmol/L (136-145); TCO2 20 mmol/L (25-35); TOTAL BILIRUBIN 0.21 mg/dL (0.20-1.00); TOTAL PROTEIN 5.1 g/dL (6.3-8.3)
--- NOTE | 2019-05-12 13:06 | GASTROENTEROLOGY PROGRESS NOTE ---
DATE: 05/12/2019 SUBJECTIVE: Ms. Edmonds is a 74-year-old, female, resting in bed. Family at the bedside. She complained of feeling weak, but denied any nausea or vomiting. She did have 1 bowel movement today. OBJECTIVE: Vital Signs: Temperature 97.3 degrees, pulse is 56, respirations 15, blood pressure 147/52, oxygen saturation 99% on 2 L nasal cannula. General: She is alert, oriented x3, and in no acute distress. HEENT: Pale conjunctivae. No icterus. PERRL. Neck: Supple. Lungs: Clear to auscultation in the anterior woodward. Cardiovascular: Regular rate and rhythm. Abdomen: Soft, nontender, nondistended. Active bowel sounds heard in all 4 quadrants. Extremities: No clubbing. No cyanosis. Generalized edema in the lower extremities. Pedal pulses 2+ present bilaterally. Neurological: Alert, oriented x3. LABORATORY DATA: WBCs 13.17, RBC 3.72, hemoglobin 9.1, hematocrit 29.4, platelet count is 243,000. No chemistries for today. Chemistries on 05/09 was sodium 137, potassium 4.0, chloride 103, carbon dioxide 21, anion gap 13, BUN 55, creatinine 1.2, calcium 9.4, magnesium 1.9, total bilirubin 0.29, AST 13, ALT is 25, alkaline phosphatase 175, albumin 2.1. IMPRESSION: Hematemesis- Improved Dehydration Nausea/Vomiting Anemia JIMMIE History of colon cancer mets to lung and brain Type 2 diabetes Hyperlipidemia Hypertension PLAN: We will current with the current plan of care. The patient is on IV fluids NS @ 75 ml/h for her dehydration. She is receiving Protonix p.o. 40 mg daily, bowel regimen, MiraLAX 17 grams p.o. daily. The patient is on antiemetic Zofran for her nausea and vomiting. The patient's colon cancer has metastasized to the lungs and brain, receiving steroids and radiation per oncologist. Her occult blood test was negative. Her H & H was 9.1 and 29.4 as of 05/09/19, we have ordered CBC and BMP. We will continue to monitor her CBC and BMP,and follow the plan of care per PCP and oncologist. This plan was discussed with Dr. Georges. Please call us with any further question or concerns. Dictated by AMANDA Gilman for Joel Georges MD cc: Joel Georges MD I have seen and examined the patient myself and I agree with the above plan of care. I have discussed the above plan of care with the patient and all questions were answered. Please call us with any further questions. DOYLED
--- NOTE | 2019-05-12 18:10 | PROGRESS NOTE ---
DATE: 05/12/2019 SUBJECTIVE: Patient has no major complaints. She looks very weak. She looks much weaker than she did when I saw her last when we discharged her. OBJECTIVE: Vital Signs: Blood pressure is 130/45, heart rate of 63, respiratory rate of 17, temperature 98.2 degrees, and 98% on room air. Cardiovascular: Regular rate and rhythm. Pulmonary: Bilateral breath sounds. Clear to auscultation. GI: Soft, nontender, and nondistended. Bowel sounds are positive. LABORATORY DATA: White count is 20, hemoglobin and hematocrit 9 and 30, platelets 300,000. Potassium is 5.2, BUN and creatinine of 45 and 0.9. PROBLEM LIST: 1. Acute kidney injury. She is improving with hydration. We will continue to follow. 2. Type 2 diabetes. We will continue Lantus and monitor closely. 3. Metastatic colon cancer to lung and brain. She is getting chemotherapy. PLAN: The plan is to try to get her home because she will not be able to get her chemotherapy if she goes to rehab, which I think now the plan is to try to get her home. I guess we will do that once we know she is a little bit stronger, and again it is going to take some time I believe. cc: Ace Jensen MD
--- NOTE | 2019-05-12 18:40 | Diag Imaging Result Doc PS360 ---
CHEST-PORTABLE - 05/12/2019 INDICATION: rehab placement COMPARISON: 05/04/2019 FINDINGS: Stable moderately low lung volumes. Stable mild cardiomegaly. Stable opacification of the right lung base. Stable left hilar nodule or mass. IMPRESSION: Lower lung volumes otherwise little change from prior. Electronically signed by Gaston Yan 05/12/2019 6:37 PM
[2019-05-12] MEDS: ZOCOR PO SCH (20:36)
[2019-05-13] MEDS: NS 1,000 ML IV SCH ×2 (01:00→14:07)
[2019-05-13 05:13] LABS: BASO# 0.04 X1000 (0.0-0.2); BASO% 0.2 % (0.0-0.8); HEMATOCRIT 29.8 % (37.0-47.0); IMM GRAN# 1.19 X1000 (0.0-0.04); IMM GRAN% 5.9 % (0.0-0.5); LYMPH# 0.48 X1000 (1.2-3.4); LYMPH% 2.4 % (20.5-51.1); MCH 24.3 PG (27-31); MCHC 30.2 g/dL (33-37); MCV 80.3 FL (81-99); MONO# 0.92 X1000 (0.11-0.59); MONO% 4.6 % (1.7-9.3); MPV 9.3 FL (7.4-10.4); NEUT% 86.9 % (42.2-75.2); PLT 290 X1000 (130-400); RBC 3.71 XMIL (4.2-5.4); RDW 18.7 % (11.5-14.5); WBC 20.13 X1000 (4.8-10.8)
[2019-05-13] MEDS: PROTONIX PO SCH (06:17)
[2019-05-13] MEDS: HUMALOG SUBQ SCH ×3 (06:18→17:15)
[2019-05-13 06:37] LABS: CALCIUM 8.9 mg/dL (8.8-10.2); CREATININE 1.1 mg/dL (0.5-0.9)
[2019-05-13] MEDS: ASPIRIN EC PO SCH (08:14)
[2019-05-13] MEDS: LANTUS INSULIN SUBQ SCH ×2 (08:15→20:45)
[2019-05-13] MEDS: MIRALAX PO SCH (08:15)
[2019-05-13] MEDS: ISORDIL PO SCH ×3 (08:15→18:15)
[2019-05-13] MEDS: VITAMIN B-12 PO SCH (08:15)
[2019-05-13] MEDS: GLUCOTROL PO SCH (08:15)
[2019-05-13] MEDS: DECADRON PO SCH ×3 (08:15→18:15)
[2019-05-13] MEDS: COREG PO SCH ×2 (08:15→20:38)
[2019-05-13] MEDS: SYNTHROID PO SCH (08:40)
[2019-05-13] MEDS: KAYEXALATE PO SCH ×2 (10:40→20:38)
--- NOTE | 2019-05-13 14:02 | PROGRESS NOTE ---
DATE: 05/13/2019 SUBJECTIVE: Patient reports feeling fine. Denies any nausea or vomiting. OBJECTIVE: Vital Signs: Temperature 98.6 degrees, heart rate 68, respiratory rate 20, blood pressure 131/49, O2 saturation 97% on room air. General Examination: This is a chronically ill- appearing, 74-year-old female lying in bed, in no acute distress. Cardiovascular: S1, S2 heard. No murmurs, gallops, or rubs. Regular rate and rhythm. Respiratory: Clear bilaterally to auscultation. No work of breathing or using accessory muscles. Abdomen: Soft, nontender to palpation. Bowel sounds present. No organomegaly. Extremities: No clubbing, cyanosis, or edema. Peripheral pulses present in both legs. Neurological: Patient alert and oriented x3. Moves 4 extremities. LABORATORY DATA: Reviewed. ASSESSMENT AND PLAN: 1. Acute kidney injury secondary to dehydration. Renal function was basically completely normal yesterday and a little bit elevated today. I think we will continue with gentle IV fluid hydration with 75 mL of normal saline per hour. We will continue with the same management. 2. Diabetes mellitus type 2. We will continue with Lantus and Humalog sliding scale. 3. Hyperlipidemia. We will continue home medications. 4. Hypertension. Blood pressure is under control. We will continue with the same management. 5. Recent diagnosis of metastatic cancer to the lung and brain, likely primary GI cancer. Oncology has been consulted. They are not planning to do any active treatment while this patient is in the hospital. 6. Disposition. At this point, the family and patient are not sure to go to rehab or go home and start chemotherapy right away. We will see what patient has to say tomorrow. Potassium has been elevated so we have provided Kayexalate and if the potassium is okay tomorrow, I think will have to decide if this patient is staying for rehab placement or going home with home health and finally start chemotherapy soon. cc: MD SHANDA Mir
[2019-05-13] MEDS ORDERED: FLEET MINERAL OIL ENEMA PR ONE (16:00)
--- NOTE | 2019-05-13 18:32 | GASTROENTEROLOGY PROGRESS NOTE ---
DATE: 05/13/2019 SUBJECTIVE: Patient was awake and alert. She denied current complaint. She states she has not had any further episodes of nausea and vomiting. No further hematemesis or hemoptysis per patient report. She has a family member at the bedside. OBJECTIVE: Vital Signs: Temperature 98.6 degrees, pulse 68, respirations 20, blood pressure 131/49. General: Patient was awake and alert in no acute distress. Cardiovascular: Regular rate and rhythm. Abdomen: Soft, nontender. Positive bowel sounds. LABORATORY: Hematology. WBC 20.13, hemoglobin 9.0, hematocrit 29.8, MCV 80.3, platelet 290,000. Chemistry. Sodium 138, potassium 6.0, chloride 108, CO2 21, BUN 46, creatinine 1.1, glucose 97. ASSESSMENT AND PLAN: 1. Metastatic colon cancer with metastasis to the lung and brain. Patient is following with Dr. Lange. She has received radiation treatments by Dr. Beard. There were plans to start chemotherapy but I believe that is on hold while she is in the hospital. 2. Acute kidney injury is improving. 3. Hyperkalemia. Patient has been given medications to reverse her hyperkalemia. 4. Type 2 diabetes. Continue to monitor. 5. Hematemesis versus hemoptysis/nausea, vomiting has improved. Continue PPI. Continue p.r.n. medications for nausea or vomiting. Hemoglobin and hematocrit have been stable over the last several days. Would not recommend endoscopy unless needed for therapeutic purposes. Again continue her PPI, also continue her bowel regimen MiraLAX, will continue to follow along and be available as needed. I have discussed this case with Dr. Deleon. Dictated by AMANDA Nixon for Arturo Deleon MD cc: AMANDA Last MD [facility]
[2019-05-13] MEDS: ZOCOR PO SCH (20:38)
[2019-05-14] MEDS: PROTONIX PO SCH (06:11)
[2019-05-14] MEDS: HUMALOG SUBQ SCH ×2 (06:17→12:07)
--- NOTE | 2019-05-14 07:04 | EKG Report ---
Test Performed on : 05/14/2019 06:56:08 AM Test Reason : 22 beat run of v-tach per telemetry Blood Pressure : / mmHG Vent. Rate : 059 BPM Atrial Rate : 059 BPM P-R Int : 166 ms QRS Dur : 128 ms QT Int : 424 ms P-R-T Axes : -07 -46 -29 degrees QTc Int : 419 ms Sinus bradycardia. Left axis deviation Nonspecific intraventricular block T wave abnormality, consider lateral ischemia Abnormal ECG Unconfirmed Result
[2019-05-14 07:33] LABS: BASO# 0.05 X1000 (0.0-0.2); BASO% 0.3 % (0.0-0.8); HEMATOCRIT 27.4 % (37.0-47.0); HEMOGLOBIN 8.6 g/dL (12.0-16.0); IMM GRAN# 1.57 X1000 (0.0-0.04); IMM GRAN% 8.3 % (0.0-0.5); LYMPH% 3.2 % (20.5-51.1); MCH 24.4 PG (27-31); MCHC 31.4 g/dL (33-37); MCV 77.8 FL (81-99); MONO# 1.21 X1000 (0.11-0.59); MONO% 6.4 % (1.7-9.3); MPV 8.9 FL (7.4-10.4); NEUT# 15.56 X1000 (1.4-6.5); NEUT% 81.8 % (42.2-75.2); PLT 292 X1000 (130-400); RBC 3.52 XMIL (4.2-5.4); RDW 18.1 % (11.5-14.5); WBC 18.99 X1000 (4.8-10.8)
[2019-05-14 08:03] LABS: AGAP 8; ALBUMIN 2.1 g/dL (3.5-5.0); BUN 40 mg/dL (8-22); CALCIUM 8.6 mg/dL (8.8-10.2); CHLORIDE 105 mmol/L (98-107); CK PROFILE 46 U/L (24-173); COSMO 282; CREATININE 0.7 mg/dL (0.5-0.9); ESTIMATED GFR > 60; GLUCOSE 72 mg/dL (70-104); MAGNESIUM 1.7 mg/dL (1.5-2.7); PHOSPHORUS 2.9 mg/dL (2.7-4.5); POTASSIUM 3.8 mmol/L (3.5-5.1); SODIUM 137 mmol/L (136-145); TCO2 24 mmol/L (25-35)
[2019-05-14] MEDS: SYNTHROID PO SCH (08:50)
[2019-05-14] MEDS: MIRALAX PO SCH (08:50)
[2019-05-14] MEDS: GLUCOTROL PO SCH (08:50)
[2019-05-14] MEDS: DECADRON PO SCH ×2 (08:50→12:24)
[2019-05-14] MEDS: VITAMIN B-12 PO SCH (08:50)
[2019-05-14] MEDS: ISORDIL PO SCH ×2 (08:50→14:15)
[2019-05-14] MEDS: KAYEXALATE PO SCH (08:51)
[2019-05-14] MEDS: ASPIRIN EC PO SCH (08:51)
[2019-05-14] MEDS: COREG PO SCH (08:51)
[2019-05-14] MEDS: LANTUS INSULIN SUBQ SCH (08:57)
--- NOTE | 2019-05-14 11:46 | DISCHARGE SUMMARY ---
ADMISSION DATE: 05/10/2019 DISCHARGE DATE: ADDENDUM: DISCHARGE DISPOSITION: [facility] today. Dictated by AMANDA Castillo for Quan Briggs MD cc: AMANDA Castillo MD
--- NOTE | 2019-05-14 11:46 | DISCHARGE SUMMARY ---
ADMISSION DATE: 05/10/2019 DISCHARGE DATE: 05/14/2019 ADMISSION DIAGNOSES: 1. Dehydration. 2. Acute kidney injury on chronic kidney disease. 3. Steroid-induced hyperglycemia. 4. Nausea and vomiting with traces of pink-tinged vomitus as well as mucus. 5. Steroid-induced leukocytosis. 6. Hyperlipidemia. 7. Hypertension. 8. Recent diagnosis of metastatic cancer to the lung and brain, with primary being gastrointestinal. DISCHARGE DIAGNOSES: 1. Acute kidney injury secondary to dehydration. 2. Diabetes mellitus type 2. 3. Hyperlipidemia. 4. Hypertension. 5. Recent diagnosis of metastatic cancer to lung, brain, gastrointestinal. 6. Hyperkalemia. CONSULTATIONS: Dr. Christina Spears and Dr. Jackson Marti. SURGERIES/PROCEDURES: None. HOSPITAL COURSE: Ms. Mya Edmonds is a 74-year-old female with a medical history of diabetes mellitus type 2, hyperlipidemia, hypertension, who presented to emergency department in early April with complaints of syncope. Full workup found metastatic cancer to the lung and brain, and likely source being GI. Bronchoscopy revealed a necrotic mass, with pathology revealing likely GI metastatic cancer with mets to the brain. She had undergone several radiation treatments, and was going to start on p.o. chemotherapy Sunday or Sunday prior to admission with Dr. Lange, who apparently was her primary oncologist. Daughter reported that since her discharge on 04/29/2019, she really was not answering questions real well, with delay of answering questions. There was pain in the right hip and ankles and her knees. She would scream out in pain if they would try to move her. She actually tried to swing at the nurse the day prior to admission, which is completely uncharacteristic of the patient. It was also reported that it had been a week since she had a bowel movement, but had a very large bowel movement prior to admit. Nausea, vomiting. Apparently, she went to see her primary care provider, Dr. Rivera, who mentioned to the ER physician that the patient had vomited pine, red-tinged vomitus, and the daughter actually felt like her mother had perked up since she had gotten IV fluids. There were also some complaints of lower extremity edema. Upon assessment, she was eating and felt like her appetite had improved. She was admitted. GI and Oncology were consulted. She was given IV fluid hydration for the acute kidney injury. Oncology did not make any changes to her treatment. Gastroenterology wanted to continue IV fluids and Zofran and 40 mg of Protonix daily for GI bleed. There were no plans for EGD. She improved and is going to be discharged. VITAL SIGNS: Temperature 98 degrees, heart rate 54, respiratory rate 16, blood pressure 143/54, O2 saturation 98% on room air. DISCHARGE LABORATORY DATA: White blood cells 18,000, hemoglobin 8, hematocrit 27, platelet count 292,000. Sodium 137, potassium 3.8, BUN 40, creatinine 0.7, glucose 91, calcium 8.6. Phosphorus is 2.9, magnesium 1.7. CK 46, troponin less than 0.01. Albumin is 2.1. IMAGING: Chest x-ray: Low lung volumes, otherwise negative. EKG on 05/08/2019: Sinus tachycardia, occasional PVCs, rate 107. EKG on 05/14/2019, that was today: Sinus bradycardia, rate 59, QTc 419. DISCHARGE MEDICATIONS: 1. Aspirin 81 mg p.o. daily. 2. Lasix 40 mg p.o. daily. 3. Glipizide 5 mg p.o. daily. 4. Isosorbide dinitrate 20 mg p.o. t.i.d. 5. Lantus 40 units daily and 20 units nightly. 6. Synthroid 137 mcg p.o. daily. 7. Simvastatin 20 mg p.o. nightly. 8. Vitamin B12, 1000 mcg p.o. daily. 9. Xyzal 5 mg p.o. daily. 10. Magnesium citrate 1 bottle daily as needed. 11. Coreg 3.125 mg p.o. twice daily. 12. Decadron. 13. Klonopin 0.5 mg p.o. twice daily p.r.n. 14. MiraLAX 17 grams p.o. daily. 15. Ultram 50 mg p.o. every 6 hours p.r.n. PHYSICIAN FOLLOWUP: Dr. Jarred Rivera. DISCHARGE DIET: Diabetic. DISCHARGE ACTIVITY: As tolerated. DISCHARGE INSTRUCTIONS: If there are return of symptoms that she presented with, please seek medical attention, and you will need to follow up with your primary care provider. DISCHARGE DISPOSITION: Home. Dictated by AMANDA Castillo for Quan Briggs MD Addendum: Patient seen and examined by myself. Agree with AMANDA note. It reflects my assessment and plan. Patient is being discharged in stable condition to rehab and will be seen by her Oncologist upon rehab discharge. cc: AMANDA Castillo MD [facility]
[2019-05-14 12:50] VITALS: BP 140/61
--- NOTE | 2019-05-14 20:47 | GASTROENTEROLOGY PROGRESS NOTE ---
DATE: 05/14/2019 SUBJECTIVE: The patient was being cleaned up at that time of my rounds. No reports of hematemesis or nausea and vomiting. She does have discharge orders in the chart today. I believe she will be going to [facility]. OBJECTIVE: Vital Signs: Temperature 98.1 degrees, pulse 92, respirations 16, blood pressure 140/61. LABORATORY: Hematology: WBC 18.99, hemoglobin 8.6, hematocrit 27.4, platelets 292,000. Chemistry: Sodium 137, potassium improved to 3.8 after receiving medications for hyperkalemia, chloride 105, BUN 40, creatinine 0.7, calcium 8.6. ASSESSMENT AND PLAN: 1. Recent diagnosis of metastatic colon cancer with metastasis to the lung and brain. 2. Acute kidney injury. 3. Diabetes. 4. Recent hematemesis/nausea and vomiting has improved. 5. Recommend she follow up with Dr. Spears as recommended regarding her chemotherapy initiation. Gastroenterology will be available during her hospital course. Recommend she follow up with us in the office if needed. I have discussed this case with Dr. Deleon. Dictated by AMANDA Nixon for Arturo Deleon MD cc: AMANDA Last MD [facility] [place] [facility]
--- NOTE | 2019-05-15 19:27 | HEMO/ONC CONSULTATION ---
DATE: 05/12/2019 We appreciate this consult. CHIEF COMPLAINT: Colon cancer. HISTORY OF PRESENT ILLNESS: Ms. Mya Edmonds is a 74-year-old female, known to Dr. Lange with a history of hypertension, diabetes mellitus type 2, hyperlipidemia, and hypothyroidism. The patient was seen at [facility] in April and ultimately diagnosed with colon cancer with metastases to lungs and brain. She underwent [address] Beard and was scheduled to begin treatment with Xeloda and Avastin; however, the patient presented to [facility] secondary to altered mental status and dehydration. We are consulted as the patient is known to us with a recent diagnosis of moderately differentiated colon adenocarcinoma with metastases to the lung and brain and was scheduled to begin treatment with Avastin and Xeloda. PAST MEDICAL HISTORY: As in HPI. PAST SURGICAL HISTORY: Adenoidectomy. FAMILY HISTORY: Negative for any hematologic or oncologic disease. SOCIAL HISTORY: The patient does not smoke, drink alcohol, or use illicit drugs. MEDICATIONS ON ADMISSION: 1. Simvastatin. 2. Aspirin 81 mg. 3. Vitamin B12. 4. Isordil. 5. Glipizide. 6. Lantus SoloSTAR. 7. Xyzal. 8. Levothyroxine. 9. Lasix. 10. MiraLAX. 11. Tramadol. 12. Coreg. 13. Klonopin. 14. Decadron. ALLERGIES: The patient has no known drug allergies. REVIEW OF SYSTEMS: A 14 point review of systems was obtained and is negative except as mentioned in HPI. PHYSICAL EXAMINATION: Ms Edmonds is a pleasant 74-year-old female, lying supine in bed in no immediate distress.Vital Signs: Temperature 98.6, blood pressure 131/65, heart rate 60, respirations 16, O2 saturation is 98% on room air. HEENT: Normocephalic, atraumatic. Mucous membranes are pale and moist. Sclerae anicteric. Extraocular movements intact. Neck: Supple. Lungs: Clear to auscultation bilaterally. Chest expansion is equal bilaterally. Cardiovascular: S1, S2 is heard without murmur, rub, or gallop. Abdomen: Nondistended, nontender. Bowel sounds positive all quadrants. No rebound or guarding noted. Extremities: The patient does have 1+ bilateral lower extremity edema. Dermatologic: No rashes, bruises, or lesions. Neurologic: The patient is slightly somnolent, but oriented x3 and has no focal deficits. LABORATORY DATA: Hemoglobin is 9.1, hematocrit 29.4, white blood cell count 13.17, platelet count 243,000. Sodium 137, potassium 4.2, chloride 103, CO2 of 21, BUN 55, creatinine 1.2, glucose is 238, calcium 9.4. Magnesium 1.9. Alkaline phosphatase 175, all other LFTs are within normal limits. Urinalysis is negative for UTI. ASSESSMENT AND PLAN: 1. Moderately differentiated colon adenocarcinoma with metastases to the lung and brain. Patient is status post radiation therapy with Dr. Beard. She tolerated treatment well. She will begin Avastin and Xeloda on 05/14/2019. 2. Acute kidney insufficiency secondary to dehydration. The patient is improving with IV fluids. Would continue to monitor BUN and creatinine. 3. Diabetes mellitus, type 2, stable on sliding scale insulin. 4. Hypertension. Blood pressure is currently stable. 5. Hyperlipidemia. Known. We will follow along with you and make further recommendations pending outcomes. The above reflects the history, exam, assessment, and plan of Dr. Lange. Dictated by AMANDA Marquez for Nate Lange MD cc: AMANDA Marquez MD
== END 2019-05-14 14:55 | DRG 683 ==
LOC: ED 11:47 → EDIPHOLD 11:47 → 1N 16:25 → SUATTDRO 05-10 18:28
PROVIDERS: ATTEND Internal Medicine

== ENCOUNTER 2019-05-16 07:23 | Inpatient (IN) ==
[2019-05-16] MEDS ORDERED: D50W SYRINGE IV ONE ×2 (07:29→11:43)
[2019-05-16] MEDS ORDERED: NS 1,000 ML IV ONE ×2 (07:29→09:35)
[2019-05-16] MEDS ORDERED: DUONEB (A & A) INH ONE (07:29)
[2019-05-16] MEDS ORDERED: VANCOMYCIN 1 GM/NS 1 GM/250 ML IVPB IV ONE (07:31)
[2019-05-16] MEDS ORDERED: ZOSYN 3.375 GM in NS 50 ML IV ONE (07:31)
[2019-05-16] MEDS ORDERED: D50W SYRINGE ONE (07:36)
[2019-05-16 07:37] LABS: ALLEN TEST NO; BE -3.7 mmoll (-3.0-3.0); BLOOD TYPE ARTERIAL; METHB 1.7 % (0.0-1.5); O2(CT) 15.6 mL/dL (15.0-23.0); O2HB 95.9 % (95.0-99.0); PCO2(98.6) 42 mmHg (35-45); PO2(98.6) 141 mmHg (60-100); SAMPLE BLOOD; SAO2 99.5 % (95.0-100.0); THB 11.4 g/dL (11.5-17.4); pH(98.6) 7.33 (7.35-7.45)
[2019-05-16 07:38] LABS: MODALITY NRB
--- NOTE | 2019-05-16 08:02 | Diag Imaging Result Doc PS360 ---
CHEST-PORTABLE - 05/16/2019 INDICATION: AMS COMPARISON: 05/12/2019 FINDINGS: Lung volumes are much improved. There is persistent opacification of the right lung base that appears likely to be mostly pleural effusion. Stable cardiomegaly and pulmonary vascular congestion. There is some hazy central interstitial infiltrate bilaterally compatible with pulmonary edema. IMPRESSION: Improved lung volumes, otherwise no change from prior. Electronically signed by Gaston Yan 05/16/2019 7:59 AM
[2019-05-16 08:25] LABS: INR 1.09; PROTIME 14.3 Seconds (11.0-16.0)
[2019-05-16 08:26] LABS: PTT 23.4 Seconds (22.3-41.8)
[2019-05-16 08:27] LABS: ALBUMIN 2.4 g/dL (3.5-5.0); CALCIUM 8.7 mg/dL (8.8-10.2); POTASSIUM 4.3 mmol/L (3.5-5.1); TOTAL BILIRUBIN 0.22 mg/dL (0.20-1.00); TOTAL PROTEIN 4.7 g/dL (6.3-8.3)
[2019-05-16 08:36] LABS: BASO# 0.18 X1000 (0.0-0.2); BASO% 0.5 % (0.0-0.8); HEMATOCRIT 32.1 % (37.0-47.0); HEMOGLOBIN 9.8 g/dL (12.0-16.0); IMM GRAN# 2.63 X1000 (0.0-0.04); IMM GRAN% 6.8 % (0.0-0.5); LYMPH# 0.92 X1000 (1.2-3.4); LYMPH% 2.4 % (20.5-51.1); MCH 24.3 PG (27-31); MCHC 30.5 g/dL (33-37); MCV 79.5 FL (81-99); MONO# 2.13 X1000 (0.11-0.59); MONO% 5.5 % (1.7-9.3); MPV 10.2 FL (7.4-10.4); NEUT# 33.08 X1000 (1.4-6.5); NEUT% 84.8 % (42.2-75.2); PLT 429 X1000 (130-400); RBC 4.04 XMIL (4.2-5.4); RDW 19.3 % (11.5-14.5); WBC 38.94 X1000 (4.8-10.8)
[2019-05-16 08:41] LABS: BANDS 6 % (0-1); LYMPHS 5 % (21-51); MONO 4 % (1-9); SEGS 84 % (42-75)
[2019-05-16 08:51] LABS: URINE SOURCE CATH
[2019-05-16 09:05] LABS: BILIRUBIN URINE NEGATIVE (NEGATIVE); BLOOD URINE NEGATIVE (NEGATIVE); COLOR YELLOW; GLUCOSE URINE 300 mg/dL (NEGATIVE); KETONE URINE NEGATIVE (NEGATIVE); LEUKOCYTES URINE NEGATIVE (NEGATIVE); NITRITE URINE NEGATIVE (NEGATIVE); PROTEIN URINE 30 mg/dL (NEGATIVE); SP GRAVITY URINE 1.019; TURBIDITY URINE CLEAR (CLEAR); UROBILINOGEN URINE NORMAL (NORMAL)
[2019-05-16 09:06] LABS: UR EPITHELIAL CELLS <10 /HPF (<10); URINE BACTERIA 1+ /HPF; URINE RBC <10 /HPF (<10); URINE WBC <10 /HPF (<10)
--- NOTE | 2019-05-16 09:21 | Diag Imaging Result Doc PS360 ---
CT HEAD W/O CONTRAST - 05/16/2019 INDICATION: AMS, history of lng CA with mers COMPARISON: 04/09/2019 FINDINGS: The ventricles and sulci are normal in size and contour. No intracranial mass or hemorrhage. There is some stable mild cerebral white matter chronic microvascular ischemia. The skull is intact. The sinuses are clear. IMPRESSION: No acute disease or change from prior. This exam was performed using automated exposure control, adjustment of mA or kV according to patient size, and/or use of iterative reconstruction technique Electronically signed by Gaston Yan 05/16/2019 9:18 AM
[2019-05-16] MEDS ORDERED: FENTANYL IV ONE (09:26)
--- NOTE | 2019-05-16 09:31 | EKG Report ---
Test Performed on : 05/16/2019 08:34:28 AM Test Reason : AMS Blood Pressure : / mmHG Vent. Rate : 112 BPM Atrial Rate : 112 BPM P-R Int : 164 ms QRS Dur : 122 ms QT Int : 350 ms P-R-T Axes : 047 -72 094 degrees QTc Int : 477 ms Sinus tachycardia. with premature atrial complexes. with aberrant conduction. Left axis deviation Nonspecific intraventricular conduction delay Nonspecific ST and T wave abnormality Abnormal ECG When compared with ECG of 14-MAY-2019 06:56, Significant changes have occurred Unconfirmed Result
--- NOTE | 2019-05-16 09:32 | PROVIDER DOCUMENTATION ---
HPI-Neurological Disorder - General Chief Complaint: Unresponsive Stated Complaint: UNRESPONSIVE Time Seen by Provider: 05/16/19 07:28 Source: family, EMS Allergies/Adverse Reactions: Patient Allergies Allergy/AdvReac Type Severity Reaction Status Date / Time No Known Allergies Allergy Verified 05/08/19 12:27 Home Medications: Home Medication List Medication Instructions Recorded Confirmed Last Taken Type Aspirin [Aspir-Low] 1 tab PO DAILY 10/17/17 05/08/19 05/07/19 History Simvastatin 20 mg PO HS 10/17/17 05/08/19 05/07/19 History Cyanocobalamin (Vitamin B-12) 1,000 mcg PO DAILY 11/13/17 05/08/19 05/07/19 History [Vitamin B12] Isosorbide Dinitrate [Isordil] 20 tab PO TID 11/13/17 05/08/19 05/07/19 History Glipizide [Glucotrol] 5 mg PO DAILY 01/22/18 05/08/19 05/07/19 History Furosemide 40 mg PO DAILY 04/07/19 05/08/19 05/07/19 History Insulin Glargine,Hum.rec.anlog 20 unit SQ QPM 04/07/19 05/08/19 05/07/19 History [Lantus Solostar] Insulin Glargine,Hum.rec.anlog 40 units SQ QAM 04/07/19 05/08/19 05/07/19 History [Lantus Solostar] Levocetirizine Dihydrochloride 5 mg PO DAILY 04/07/19 05/08/19 05/07/19 History [Xyzal] Levothyroxine Sodium 137 mcg PO DAILY 04/07/19 05/08/19 05/07/19 History Carvedilol [Coreg] 3.125 mg PO BID #60 tab 04/28/19 05/08/19 05/07/19 Rx Polyethylene Glycol 3350 [Miralax] 17 gm PO DAILY powder, packet 04/28/19 05/08/19 05/07/19 Rx Dexamethasone [Decadron] 4 mg PO TID #90 tab 04/29/19 05/08/19 05/07/19 Rx Magnesium Citrate [Citrate of 296 ml PO ONCE #1 bottle 05/04/19 05/08/19 05/07/19 Rx Magnesia] Clonazepam [Klonopin] 0.5 mg PO BID PRN PRN #30 tab 05/14/19 Unknown Rx Tramadol [Ultram] 50 mg PO Q6H PRN PRN #30 tab 05/14/19 Unknown Rx - History of Present Illness-Neuro Nature of Presenting Problem: Patient with 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 FSBG at the [place] was 21, EMS reports agonal respirations at scene. They administered Glucagon 1mg IM and BVM and en route patient became more alert. Patient was just discharged from [facility] a few days ago and has not started chemo yet. Patient has sacral decubitius and recent pneumonia. Headache Location: reports: global Severity: reports: mild Onset/Duration: reports: unsure Timing: reports: still present, improving, constant Context: reports: found unresponsive by longterm staff, low blood sugar Character of Altered Mental Status: reports: unresponsive, decreased responsiveness Any recent trauma/injury?: reports: none New weakness or altered sensation location:: reports: general (diffuse) Cognitive Baseline: alert, oriented x3 Gait Baseline: walks only with assistance Associated Symptoms: reports: short of breath, decreased ability to walk or stand, sleepy, trouble walking Similar Symptoms Previously?: No Recently seen or treated by another doctor?: Yes (admitted here last week) Review of Systems - Adult - REVIEW OF SYSTEMS - ADULT Constitutional: reports: no symptoms reported Eyes: reports: no symptoms reported Ears, Nose, Mouth & Throat: reports: no symptoms reported Cardiovascular: reports: no symptoms reported Respiratory: reports: no symptoms reported Gastrointestinal: reports: no symptoms reported Genitourinary: reports: no symptoms reported Musculoskeletal: reports: no symptoms reported Integumentary: reports: no symptoms reported Neurological: reports: no symptoms reported Psychiatric: reports: no symptoms reported Endocrine: reports: no symptoms reported Hematologic/Lymphatic: reports: no symptoms reported Allergic/Immunologic: reports: no symptoms reported All Other Systems: Reviewed and Negative Past History - Adult - PAST MEDICAL HISTORY-ADULT Review of Records: reports: Old Records Reviewed, Nursing Assessment Review, Medications Reviewed, Social history reviewed & non-contributory. Major Childhood Illnesses: reports: denies history Cardiovascular: reports: HTN Respiratory: reports: denies history Gastrointestinal: reports: denies history Obstetrical/Gynecological: reports: denies history Genitourinary: reports: denies history Musculoskeletal: reports: denies history Neurological: reports: denies history Endocrine/Immune: reports: Diabetes Other Conditions: reports: denies history - PRIOR SURGERIES/PROCEDURES Surgical/Procedure History: reports: tonsillectomy - IMMUNIZATION STATUS Childhood Immunizations: See Nurse Assessment Flu Vaccine: See Nurse Assessment - FAMILY HISTORY Family History: reviewed, not pertinent - SOCIAL HISTORY Smoking: non-smoker Substance Use: none/never Living Situation: alone Physical Exam- Neurological - Physical Exam-Neuro Initial Vital Signs Reviewed: Yes (Tachycardic, tachypneic, groaning) General Appearance: moderate distress, lethargic, combative Eye Exam: bilateral eye: normal inspection, PERRL, EOMI HENMT: normocephalic/atraumatic, normal ENT inspection, other (alopecia, dry mucous membranes) Head Injury: no evidence of injury, active bleeding Neck: non-tender, full range of motion, supple, normal inspection Respiratory: chest non-tender, no pleuratic chest pain, no respiratory distress, decreased breath sounds, rhonchi, wheezing, dull on percussion, increased rate Cardiovascular: regular rate, rhythm, no edema, no gallop, no JVD, no murmur, tachycardia Abdominal Exam: normal bowel sounds, non tender, soft, no organomegaly, no pulsatile mass Lymphatic: no adenopathy Extremity: normal range of motion, non-tender, no calf tenderness, normal capillary refill, pedal edema 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 Exam: normal hearing, PERRL, abnormal speech (mumbling) Coordination/Gait: abnormal gait, ABN nose to finger (R), ABN nose to finger (L) Motor/Sensory: no motor deficit, no sensory deficit, no pronator drift Neurologic: 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 II-XII nml as tested Integumentary: decubitus (sacrum, not to muscle or bone, slight erythema, no purulence or cellulitic changes.), pallor Psych/Mental Status: depressed affect, tearful - Glascow Coma Scale Best Eye Response: (3) open to voice Best Verbal Response: (3) inappropriate words Best Motor Response: (5) localizes to pain Total Glascow Score: 11 Progress - PLAN OF CARE/RESULTS Progress/Plan/Lab Results: Vital Signs - 8 hr 05/16/19 07:25 05/16/19 07:45 05/16/19 08:15 Temperature 97.9 F Pulse Rate 119 H 110 H Respiratory Rate 26 H 25 H Blood Pressure 154/122 O2 Sat by Pulse Oximetry 100 93 L 05/16/19 08:30 05/16/19 09:09 Temperature Pulse Rate 107 H 105 H Respiratory Rate 25 H 24 Blood Pressure 108/84 86/50 O2 Sat by Pulse Oximetry 93 L 93 L Laboratory Results - last 24 hr 05/16/19 05/16/19 05/16/19 07:28 07:32 07:45 WBC 38.94 H RBC 4.04 L Hgb 9.8 L Hct 32.1 L MCV 79.5 L MCH 24.3 L MCHC 30.5 L RDW Std Deviation 19.3 H Plt Count 429 H MPV 10.2 Immature Gran % (Auto) 6.8 H Neut % (Auto) 84.8 H Lymph % (Auto) 2.4 L Foard % (Auto) 5.5 Eos % (Auto) 0.0 Baso % (Auto) 0.5 Immature Gran # (Auto) 2.63 H Neut # (Auto) 33.08 H Lymph # (Auto) 0.92 L Foard # (Auto) 2.13 H Eos # (Auto) 0.00 Baso # (Auto) 0.18 Segmented Neutrophils 84 H Band Neutrophils 6 H Lymphocytes 5 L Monocytes 4 Myelocytes 1.0 Pathologist Review PT INR PTT (Actin FS) Specimen Type ARTERIAL Sample Site L BRACHIAL pH 7.33 L pCO2 42 pO2 141 H HCO3 22.0 Base Excess -3.7 L Oxyhemoglobin 95.9 ABG O2 Sat (Calculated) 15.6 ABG O2 Saturation 99.5 ABG Carboxyhemoglobin 1.80 ABG Methemoglobin 1.7 H Carson Test NO A-a O2 Difference 520.0 Total Hemoglobin 11.4 L Lactate 1.50 Liter Flow 15.0 Blood Gas Modality NRB FiO2 % 100.0 Sodium Potassium Chloride Carbon Dioxide Anion Gap BUN Creatinine Estimated GFR/1.73 m2 BUN/Creatinine Ratio Glucose POC Glucose 41 L Calculated Osmolality Calcium Total Bilirubin AST ALT Alkaline Phosphatase Creatine Kinase Troponin T [id number] Pept Total Protein Albumin Globulin Albumin/Globulin Ratio Plasma Lactate Urine Source Urine Color Urine Turbidity Urine pH Ur Specific [place] Urine Protein Ur Glucose (Stick) Ur Ketones (Stick) Urine Blood Urine Nitrite Urine Bilirubin Urobilinogen Dipstick Urine Leukocytes Urine WBC (Auto) Urine RBC (Auto) U Epithel Cells (Auto) Urine Bacteria (Auto) 05/16/19 05/16/19 05/16/19 07:45 07:45 07:45 WBC RBC Hgb Hct MCV MCH MCHC RDW Std Deviation Plt Count MPV Immature Gran % (Auto) Neut % (Auto) Lymph % (Auto) Foard % (Auto) Eos % (Auto) Baso % (Auto) Immature Gran # (Auto) Neut # (Auto) Lymph # (Auto) Foard # (Auto) Eos # (Auto) Baso # (Auto) Segmented Neutrophils Band Neutrophils Lymphocytes Monocytes Myelocytes Pathologist Review PT 14.3 INR 1.09 PTT (Actin FS) 23.4 Specimen Type Sample Site pH pCO2 pO2 HCO3 Base Excess Oxyhemoglobin ABG O2 Sat (Calculated) ABG O2 Saturation ABG Carboxyhemoglobin ABG Methemoglobin Carson Test A-a O2 Difference Total Hemoglobin Lactate Liter Flow Blood Gas Modality FiO2 % Sodium 139 Potassium 4.3 Chloride 104 Carbon Dioxide 22 L Anion Gap 13 BUN 44 H Creatinine 1.0 H Estimated GFR/1.73 m2 55 BUN/Creatinine Ratio 44 Glucose 185 H POC Glucose Calculated Osmolality 294 Calcium 8.7 L Total Bilirubin 0.22 AST 44 H ALT 55 H Alkaline Phosphatase 275 H Creatine Kinase 90 Troponin T Etq-C-Fdvyusxygug Pept Total Protein 4.7 L Albumin 2.4 L Globulin 2.3 Albumin/Globulin Ratio 1.0 Plasma Lactate 1.8 Urine Source Urine Color Urine Turbidity Urine pH Ur Specific [place] Urine Protein Ur Glucose (Stick) Ur Ketones (Stick) Urine Blood Urine Nitrite Urine Bilirubin Urobilinogen Dipstick Urine Leukocytes Urine WBC (Auto) Urine RBC (Auto) U Epithel Cells (Auto) Urine Bacteria (Auto) 05/16/19 05/16/19 05/16/19 07:45 07:45 08:20 WBC RBC Hgb Hct MCV MCH MCHC RDW Std Deviation Plt Count MPV Immature Gran % (Auto) Neut % (Auto) Lymph % (Auto) Foard % (Auto) Eos % (Auto) Baso % (Auto) Immature Gran # (Auto) Neut # (Auto) Lymph # (Auto) Foard # (Auto) Eos # (Auto) Baso # (Auto) Segmented Neutrophils Band Neutrophils Lymphocytes Monocytes Myelocytes Pathologist Review PT INR PTT (Actin FS) Specimen Type Sample Site pH pCO2 pO2 HCO3 Base Excess Oxyhemoglobin ABG O2 Sat (Calculated) ABG O2 Saturation ABG Carboxyhemoglobin ABG Methemoglobin Carson Test A-a O2 Difference Total Hemoglobin Lactate Liter Flow Blood Gas Modality FiO2 % Sodium Potassium Chloride Carbon Dioxide Anion Gap BUN Creatinine Estimated GFR/1.73 m2 BUN/Creatinine Ratio Glucose POC Glucose Calculated Osmolality Calcium Total Bilirubin AST ALT Alkaline Phosphatase Creatine Kinase Troponin T < 0.010 Cnr-N-Vddpfzfjwtq Pept 2465 H Total Protein Albumin Globulin Albumin/Globulin Ratio Plasma Lactate Urine Source CATH Urine Color YELLOW Urine Turbidity CLEAR Urine pH 6.0 Ur Specific [place] 1.019 Urine Protein 30 A Ur Glucose (Stick) 300 A Ur Ketones (Stick) NEGATIVE Urine Blood NEGATIVE Urine Nitrite NEGATIVE Urine Bilirubin NEGATIVE Urobilinogen Dipstick NORMAL Urine Leukocytes NEGATIVE Urine WBC (Auto) <10 Urine RBC (Auto) <10 U Epithel Cells (Auto) <10 Urine Bacteria (Auto) 1+ Orders Category Date Time Status Cardiac Monitoring DIRECTED Care 05/16/19 07:28 Active Finger Stick Blood Sugar (ED) DIRECTED Care 05/16/19 07:28 Active Finger Stick Blood Sugar (ED) DIRECTED Care 05/16/19 09:33 Ordered Limon Cath Insertion ORDERED Care 05/16/19 07:31 Active Misc. NRSG Communication Order DIRECTED Care 05/16/19 07:31 Active Oxygen Therapy- ED Nursing DIRECTED Care 05/16/19 07:28 Active Saline Loc NOW Care 05/16/19 07:28 Active Diabetic Diet Diet 05/16/19 09:27 Active CHEST-PORTABLE [RAD] Stat Exams 05/16/19 07:[address] HEAD W/O CONTRAST [CT] Stat Exams 05/16/19 07:45 Completed ABG [RESP] Routine Lab 05/16/19 07:28 Completed BLOOD CULTURE [BLDCUL] Stat Lab 05/16/19 07:45 Results CBC WITH ELECTRONIC DIFF [HEME] Stat Lab 05/16/19 07:45 Completed CK PROFILE [SP CHEM] Stat Lab 05/16/19 07:45 Completed COMPREHENSIVE METABOLIC PANEL [CHEM] Stat Lab 05/16/19 07:45 Completed LACTATE, PLASMA [CHEM] Stat Lab 05/16/19 07:45 Completed PRO B-NATRIURETIC PEPTIDE Stat Lab 05/16/19 07:45 Completed PROTIME WITH INR [COAG] Stat Lab 05/16/19 07:45 Completed PTT [COAG] Stat Lab 05/16/19 07:45 Completed SPUTUM CULTURE WITH GRAM STAIN [RM] Stat Lab 05/16/19 07:46 Uncollected TROPONIN T Stat Lab 05/16/19 07:45 Completed URINALYSIS [URINALYSIS] Stat Lab 05/16/19 08:20 Completed WOUND CULTURE INC GRAM STAIN [RM] Stat Lab 05/16/19 09:36 Uncollected 0.9% Sodium Chloride Inj [Ns] 1,000 ml Med 05/16/19 07:29 Discontinued IV 999 mls/hr Albuterol 2.5MG/Ipratrop 0.5MG [Duoneb (A & A)] Med 05/16/19 07:29 Discontinued 3 ml INH NOW ONE Dextrose 50% Syringe [D50w Syringe] Med 05/16/19 07:36 Discontinued 50 ml .ROUTE .STK-MED ONE Dextrose 50% Syringe [D50w Syringe] Med 05/16/19 07:29 Discontinued 50 ml IV NOW ONE Fentanyl Med 05/16/19 09:26 Discontinued 25 microgm IV NOW ONE Ns 1000 ml IV Bolus X1 Med 05/16/19 09:35 Ordered 0.9% Sodium Chloride Inj [Ns] 1,000 ml IV 999 mls/hr Piperacillin/Tazobactam [Zosyn] 3.375 gm Med 05/16/19 07:31 Discontinued 0.9% Sodium Chloride Inj [Ns] 50 ml IV NOW Vancomycin 1 gm/Ns Med 05/16/19 07:31 Discontinued 1 gm in 250 ml IV NOW Aerosol Treatments Routine Oth 05/16/19 07:30 Completed Aerosol Treatments Stat Oth 05/16/19 07:30 Completed Altered Mental Status Stat Oth 05/16/19 07:28 Ordered EKG [EKG] Stat Ther 05/16/19 07:27 Draft Result Diagrams: 05/16/19 07:45 05/16/19 07:45 - REASSESSMENT Reassessment #1 Time Reassessed: 09:46 Status: improving (OLD CHART REVIEWED, given IVF bolus for sepsis, IV vanco/zosyn for likely pulmonary cause of sepsis. Given D50 for hypoglycemia, Given O2 and duonebs for resp distress, cultured sputum, blood and sacral ulcer.) - EKG 1 Time of EKG reading by physician:: 08:41 EKG Read and Signed by:: Amado Hall EKG Interpretation (*Must complete 3 of following elements*): Abnormal Rate: 112 Rhythm: sinus tach Nicholson: left QRS: NSIVCD, poor R wave progression, LVH, other (PVCs, PACs) ID Interval: normal ST Wave: non-specific ST changes - XRAY 1 XRAY Study: Chest Impression: Abnormal, See EMR Report (HEST-PORTABLE - 05/16/2019 INDICATION: AM S COMPARISON: 05/12/2019 FINDINGS: Lung volumes are much improved. There is persistent opacification of the right lung base that appears likely to be mostly pleural effusion. Stable cardiomegaly and pulmonary vascular congestion. There is some hazy central interstitial infiltrate bilaterally compatible with pulmonary edema. IMPRESSION: Improved lung volumes, otherwise no change from prior. Electronically signed by Gaston Yan 05/16/2019 7:59 AM 05/16/19 0759 Interpreting Physician: Gaston Yan MD Dictated Date/Time: 05/16/19 075 cc: Amado Hall MD; Jasmeet Martinez MD) - CT/MRI 1 CT Study: Head Impression: Abnormal, See EMR Report ( CT HEAD W/O CONTRAST - 05/16/2019 INDICATION: AMS, history of lng CA with mers COMPARISON: 04/09/2019 FINDINGS: The ventricles and sulci are normal in size and contour. No intracranial mass or hemorrhage. There is some stable mild cerebral white matter chronic microvascular ischemia. The skull is intact. The sinuses are clear. IMPRESSION: No acute disease or change from prior. This exam was performed using automated exposure control, adjustment of mA or kV according to patient size, and/or use of iterative reconstruction technique Electronically signed by Gaston Yan 05/16/2019 9:18 AM 05/16/19 0918 Interpreting Physician: Gaston Yan MD Dictated Date/Time: 05/16/1915 cc: Amado Hall MD; Jasmeet Martinez MD) Departure - Departure Date of Disposition Decision: 05/16/19 Time of Disposition Decision: 09:49 DIAGNOSIS: Severe sepsis with acute organ dysfunction, Bacterial UTI, Sacral decubitus ulcer, stage II, CHF (congestive heart failure) Right lower lobe pneumonia Qualifiers: Pneumonia type: due to unspecified organism Qualified Code(s): J18.1 - Lobar pneumonia, unspecified organism Disposition: ADMITTED INPATIENT 09 Certified Medical Emergency: Emergent Condition: Serious Referrals and Follow-Ups: Jasmeet Martinez MD [Primary Care Provider] - - Critical Care Note This patient required my direct & personal management of CC.: Yes Total Time (mins): 45 ([employer] systems effected.) Critical Care Statement: This patient required my direct personal management to treat or rule out processes, the absence of which, could potentiallly result in sudden, clinically significant life or limb threatening deterioration. Attestation - Physician/ KARTIK Attestation Patient care was provided by Advanced Practice Provider:: No The physician spent face to face time with patient:: Yes Advanced Practice Provider documentation review:: Supervising physician onsite and consulted in the evaluation and care of this patient. The physician did have a face to face encounter with the patient.
[2019-05-16] MEDS ORDERED: NS 500 ML IV ONE ×2 (09:51→20:40)
[2019-05-16] MEDS ORDERED: ZOFRAN IV PRN (10:41)
[2019-05-16] MEDS ORDERED: TYLENOL PO PRN (10:41)
[2019-05-16] MEDS ORDERED: D5 NS 1,000 ML IV SCH (10:45)
[2019-05-16] MEDS ORDERED: D50W SYRINGE IV PRN (10:45)
[2019-05-16] MEDS ORDERED: VANCOMYCIN IV PER PHARMACY MISC SCH (10:45)
[2019-05-16] MEDS: XOPENEX NEB INH SCH ×4 (11:24→23:30)
[2019-05-16] MEDS: ATROVENT NEB INH SCH ×4 (11:24→23:30)
--- NOTE | 2019-05-16 11:26 | HISTORY AND PHYSICAL ---
HISTORY OF PRESENT ILLNESS: This is a 74-year-old who presented from [facility]. Apparently yesterday was eating good and felt pretty good, but today she was very lethargic and unresponsive, found her sugars were in the 20s when they checked it. They deny any noted fever, chills or pleuritic pain or cough or gross hematuria. They placed a Limon catheter and put her on O2. Still lethargic at the time of my examination. PAST MEDICAL HISTORY: 1. New diagnosis of metastatic lung cancer. They suspect GI was the primary with brain metastasis and is planning that she has had some radiation treatments, planning on starting oral chemotherapy I think this coming Sunday. The patient is a full code. Family would like everything done. 2. Diabetes mellitus type 2. 3. Hyperlipidemia. 4. Hypertension. 5. Steroid-induced hyperglycemia. PAST SURGICAL HISTORY: 1. Adenoidectomy. 2. Bronchoscopy. 3. Colonoscopy with biopsy. SOCIAL HISTORY: No history of tobacco, alcohol, or illicit drugs. ALLERGIES: No known drug allergies. REVIEW OF SYSTEMS: Constitutional: According to family, they have not noticed any recent weight gain or loss. No fever or chills. HEENT: No change in visual or hearing acuity. Respiratory: No increased work of breathing or dyspnea. Cardiovascular: No chest pain or tachy palpitation. Gastrointestinal and Genitourinary: No gross hematuria, dysuria. Musculoskeletal/Neurologic: No focal complaints. Apparently she complains of abdominal pain and around the right mid quadrant. PHYSICAL EXAMINATION: GENERAL: Today in the emergency room, temperature 97.9 degrees, pulse 105, respirations 24 and blood pressure 86/50. HEENT: Pupils are equal and round. LUNGS: Clear in all lung woodward. CARDIOVASCULAR: Regular rhythm and rate without murmur or S3. ABDOMEN: Really nontender. SKIN: Warm and dry. CVP less than 6 cm. NECK: Supple. No rigidity. No cervical or supraclavicular adenopathy. EXTREMITIES: No pedal edema. SKIN: Without rashes. She has some sacral skin ulcerations, I am not sure if these are worse. Oral and nasal mucosa unremarkable. VITAL SIGNS: Temperature 97.9 degrees, pulse 105, respirations 24. blood pressure was 86/50. LABORATORY DATA: White count 74710, hematocrit 32, platelet count 429,000. Sodium 139, potassium 4.3, chloride 22, BUN 44, creatinine 1.1. AST 44, ALT 55, alkaline phosphatase 275, albumin was 2.4. Protime 14.3, PTT is 23. Urinalysis unremarkable. Blood gases, pH is 7.33, pCO2 42, PO2 is 141, is on 100% FiO2. IMAGING: CT of the head without contrast. No acute disease or change from prior CT which was on 04/09/2019, just last month. Chest x-ray, improved lung volumes, otherwise no change. ASSESSMENT AND PLAN: 1. Hypoglycemia. We will put her on D5 normal saline and run it at 85 mL an hour. We will put her on pattern sugars. We do need to check her thyroid, T4, TSH, B12, folate. We will check an a.m. cortisol level. We are going to obviously hold the glipizide and the insulin. She was on glipizide 5 mg a day and Lantus 40 units q.a.m. and 20 units in the evening. 2. History of hypothyroidism. Continue her levothyroxine. 3. New diagnosis of metastatic cancer. Suspect GI primary. She has been metastasis to the lung and apparently to the brain and had some radiation treatments I have seen that was to the brain. They are planning on chemotherapy to start Sunday as my understanding. Dr. Lange is their doctor. We will consult Dr. Lange to help follow along and direct our treatment for cancer. 4. Diabetes mellitus type 2. As above. 5. Hyperlipidemia. 6. Hypertension. 7. Metabolic encephalopathy, I suspect predominantly from hypoglycemia, but she does have elevated white count. I do not see any obvious source of infection. We will check the urine for culture. We will obtain blood cultures x2. Put her on empiric antibiotic using Zosyn and vancomycin. cc: Carson Garnica MD
[2019-05-16] MEDS: D10W 1,000 ML IV SCH ×2 (12:07→20:53)
[2019-05-16] MEDS ORDERED: DECADRON PO SCH (13:00)
[2019-05-16] MEDS ORDERED: VANCOMYCIN 850 MG in NS 250 ML IV ONE (13:30)
[2019-05-16] MEDS: DECADRON IV SCH ×2 (13:56→21:02)
[2019-05-16] MEDS: ISORDIL PO SCH ×2 (13:56→18:04)
[2019-05-16] MEDS: ZOSYN 3.375 GM in NS 50 ML IV SCH ×2 (15:42→20:50)
[2019-05-16 19:01] LABS: URINE SOURCE CATH
[2019-05-16 19:05] LABS: BILIRUBIN URINE NEGATIVE (NEGATIVE); BLOOD URINE MODERATE (NEGATIVE); COLOR YELLOW; GLUCOSE URINE 70 mg/dL (NEGATIVE); KETONE URINE NEGATIVE (NEGATIVE); LEUKOCYTES URINE NEGATIVE (NEGATIVE); NITRITE URINE NEGATIVE (NEGATIVE); PROTEIN URINE 50 mg/dL (NEGATIVE); SP GRAVITY URINE 1.024; TURBIDITY URINE HAZY (CLEAR); UROBILINOGEN URINE NORMAL (NORMAL)
[2019-05-16 19:06] LABS: UR EPITHELIAL CELLS <10 /HPF (<10); URINE BACTERIA NEGATIVE /HPF; URINE RBC TNTC /HPF (<10); URINE WBC <10 /HPF (<10)
[2019-05-16] MEDS: PULMICORT INH SCH (19:31)
[2019-05-16] MEDS: COREG PO SCH (20:54)
[2019-05-16] MEDS: ZOCOR PO SCH (20:54)
[2019-05-16] MEDS ORDERED: LEVOPHED 8 MG in D5 1/2 NS 250 ML IV SCH (22:23)
[2019-05-17] MEDS: ZOSYN 3.375 GM in NS 50 ML IV SCH ×4 (02:31→22:17)
[2019-05-17] MEDS: XOPENEX NEB INH SCH ×6 (03:26→23:30)
[2019-05-17] MEDS: ATROVENT NEB INH SCH ×6 (03:26→23:30)
[2019-05-17 04:56] LABS: ALLEN TEST YES; BE -8.5 mmoll (-3.0-3.0); BLOOD TYPE ARTERIAL; HCO3-(ACT) 18.3 mmoll (20.0-26.0); METHB 0.2 % (0.0-1.5); O2HB 96.6 % (95.0-99.0); PCO2(98.6) 20 mmHg (35-45); PO2(98.6) 115 mmHg (60-100); SAMPLE BLOOD; SAO2 99.8 % (95.0-100.0); THB 9.4 g/dL (11.5-17.4); pH(98.6) 7.45 (7.35-7.45)
[2019-05-17 04:57] LABS: MODALITY CANNULA
[2019-05-17 05:08] LABS: BASO# 0.08 X1000 (0.0-0.2); BASO% 0.2 % (0.0-0.8); HEMATOCRIT 34.5 % (37.0-47.0); HEMOGLOBIN 11.1 g/dL (12.0-16.0); IMM GRAN# 0.79 X1000 (0.0-0.04); IMM GRAN% 2.1 % (0.0-0.5); LYMPH# 0.68 X1000 (1.2-3.4); LYMPH% 1.8 % (20.5-51.1); MCHC 32.2 g/dL (33-37); MCV 77.7 FL (81-99); MONO# 1.45 X1000 (0.11-0.59); MONO% 3.9 % (1.7-9.3); MPV 9.8 FL (7.4-10.4); NEUT# 34.47 X1000 (1.4-6.5); PLT 443 X1000 (130-400); RBC 4.44 XMIL (4.2-5.4); RDW 20.1 % (11.5-14.5); WBC 37.47 X1000 (4.8-10.8)
[2019-05-17 05:22] LABS: HEMOGLOBIN A1C 8.2 % (4.8-6.0)
[2019-05-17 05:43] LABS: INR 1.36; PTT 31.5 Seconds (22.3-41.8)
[2019-05-17 06:04] LABS: ALB/GLOB RATIO 0.7; ALBUMIN 1.7 g/dL (3.5-5.0); CALCIUM 8.3 mg/dL (8.8-10.2); MAGNESIUM 1.6 mg/dL (1.5-2.7); POTASSIUM 3.6 mmol/L (3.5-5.1); TOTAL BILIRUBIN 0.26 mg/dL (0.20-1.00); TOTAL PROTEIN 4.3 g/dL (6.3-8.3)
[2019-05-17] MEDS: DECADRON IV SCH ×3 (06:27→22:16)
[2019-05-17 06:59] LABS: FREE T4 1.06 ng/dL (0.93-1.70); TSH 0.01 uIUmL (0.27-4.20)
[2019-05-17] MEDS: SYNTHROID PO SCH (07:01)
[2019-05-17 07:28] LABS: ANISOCYTOSIS 1+; BANDS 24 % (0-1); HYPOCHROM 1+; LYMPHS 4 % (21-51); MONO 6 % (1-9); POIKILOCYTOSIS 1+; SEGS 64 % (42-75)
[2019-05-17] MEDS: PULMICORT INH SCH ×2 (08:23→19:28)
[2019-05-17] MEDS: D10W 1,000 ML IV SCH (08:58)
[2019-05-17] MEDS: COREG PO SCH ×2 (09:36→20:00)
[2019-05-17] MEDS: ASPIRIN EC PO SCH (09:36)
[2019-05-17] MEDS: ISORDIL PO SCH ×3 (09:37→16:32)
[2019-05-17] MEDS: VITAMIN B-12 PO SCH (09:40)
[2019-05-17] MEDS: MIRALAX PO SCH (09:40)
[2019-05-17] MEDS ORDERED: NS 250 ML ONE (12:03)
[2019-05-17] MEDS: NS 1,000 ML IV SCH (12:22)
[2019-05-17] MEDS: KLONOPIN PO PRN (12:49)
[2019-05-17] MEDS: ULTRAM PO PRN (12:49)
--- NOTE | 2019-05-17 13:20 | PROGRESS NOTE ---
DATE: 05/17/2019 The patient has woken up very agitated, confused. She does not know where she is. She pulled out her IV. Family is his meeting to gather to decide, I think they want to continue full code. She was on Hero-Synephrine. We are going to need to get a PICC line. I backed down on her sedation, but the family would like me to start her back on the Klonopin and her tramadol, so we will try and do that. OBJECTIVE: Vital Signs: Temp 98.7 degrees, pulse 108, respirations 35, blood pressure 133/55. HEENT: Pupils are equal and round. Lungs: Are clear in all lung woodward. Cardiovascular: Regular rhythm and rate without murmur or S3. Abdomen: Is soft. Skin: Is warm and dry. Urine output is 3500 mL. Blood sugar 193, 189, 297. ASSESSMENT AND PLAN: 1. Hypoglycemia. Blood sugars are back up to normal. Checking pattern sugars. She presented with metabolic encephalopathy. I think a lot of this was a combination of low sugar and her medications. Family still adamant to not just pursue comfort levels, but the full pursue treatment of her cancer. 2. New diagnosis of metastatic cancer. We suspect GI is a primary, metastatic to the lungs and apparently to the brain. Had received radiation treatment. Planning on starting chemotherapy on Sunday. 3. History of hypothyroidism. Continue her levothyroxine. 4. Diabetes mellitus type 2. 5. Hyperlipidemia. 6. Hypertension. Right now, she is hypotensive, so we will start back her Klonopin and her tramadol and get her IV access. Changed her fluids to normal saline at 85 mL an hour. She was on D10. I have her on empiric antibiotics with Zosyn and vancomycin treating some urinary sediment, but we will continue these antibiotics for now. cc: Carson Garnica MD
--- NOTE | 2019-05-17 14:28 | Diag Imaging Result Doc PS360 ---
EXAM: CHEST-PORTABLE HISTORY: PICC line placement TECHNIQUE: Portable chest COMPARISON: 05/16/2019 FINDINGS: Interval placement of a left-sided PICC line. The tip overlies the lower right atrium. There is now complete opacification of the right hemithorax. This is likely due to a combination of atelectasis, infiltrates, and pleural fluid. Infiltrates in the left lung are less pronounced. Nodules persist. IMPRESSION: 1.Left-sided PICC line overlies the lower right atrium 2.Interval worsening Electronically signed by Warren Alberto 05/17/2019 2:26 PM
[2019-05-17] MEDS: VANCOMYCIN 1,500 MG in NS 250 ML IV SCH (16:02)
[2019-05-17] MEDS: MUCOMYST 20% INH SCH (19:28)
[2019-05-17] MEDS: ZOCOR PO SCH (20:03)
[2019-05-17] MEDS: LASIX IV SCH (20:23)
[2019-05-17] MEDS: ALBUMIN 25% IV SCH (20:23)
[2019-05-18] MEDS: ALBUMIN 25% IV SCH ×2 (01:50→08:05)
[2019-05-18] MEDS: LASIX IV SCH ×2 (02:31→08:05)
[2019-05-18] MEDS: ZOSYN 3.375 GM in NS 50 ML IV SCH ×4 (03:12→21:00)
--- NOTE | 2019-05-18 03:13 | PULMONOLOGY CONSULTATION ---
DATE: 05/17/2019 REQUESTING CLINICIAN: Dr. Garnica. REASON FOR CONSULTATION: Respiratory distress. HISTORY OF PRESENT ILLNESS: Ms. Edmonds is a 74-year-old white female known to this practitioner due to a 3-week hospitalization which began at the end of March. The patient presented with a 40 pound weight loss and weakness. CT scan of the thorax was performed which revealed a large 7.2 x 10 cm mass in the subcarinal region in the mediastinum with greater than 40 pulmonary nodules in each lung. Initial thought was that this may represent advanced lung cancer and patient underwent bronchoscopy which revealed a large necrotic mass obstructing the entrance to the right middle lobe and right lower lobe. Pathology revealed an adenocarcinoma most consistent with a GI primary. She underwent a CT scan of the abdomen and pelvis which reveals extensive peritoneal adenopathy, metastasis to the adrenal gland, and a mass in the cecum. The patient underwent a colonoscopy by Dr. Deleon and the patient had a large necrotic mass in the ascending colon which confirmed adenocarcinoma. The patient also had MRI of the brain which revealed multiple bilateral parietal lobe metastasis with vasogenic edema. The patient has been initiated on radiation therapy to the brain, but I do not believe she has initiated chemotherapy. She was discharged from the hospital on the and returned to the hospital ER on the for abdominal pain. She was discharged back to the nursing facility and was readmitted from 05/10/2019 to 05/24/2019 with dehydration and acute injury. She was out of the hospital for 2 days and then readmitted yesterday with a decreased blood sugar and altered mental status. She had a chest x-ray yesterday morning which revealed opacified right lung base at the site of her known lung mass. This afternoon she had progressive increased work of breathing and oxygen requirements and now she has near opacification of the right hemithorax. PAST MEDICAL HISTORY: 1. Metastatic colon cancer involving the retroperitoneum, the adrenal glands, the lungs, the mediastinum, and the brain. 2. History of nonischemic cardiomyopathy. 3. Diabetes mellitus with poor control. 4. Hypertension. 5. Dyslipidemia. 6. History of renal insufficiency. SOCIAL HISTORY: She has an attentive family. No alcohol use. No tobacco use. FAMILY HISTORY: Noncontributory to current presentation. REVIEW OF SYSTEMS: Cannot be obtained due to generalized weakness. PHYSICAL EXAMINATION: General: Reveals a pale, poorly responsive white female on nasal cannula. HEENT: Pupils are equal and reactive. Oropharynx appears clear. Neck: Supple. Chest: Reveals markedly diminished breath sounds right lung with rhonchi on the left. Cardiac: Increased rate, regular rhythm. Abdomen: Soft. Extremities: Reveal generalized edema. LABORATORIES: Chest x-ray as per above. Arterial blood gas at 4:50 this morning, pH 7.45, pCO2 of 20, pO2 of 115 with a lactate of 4.3. White blood count 37,000, hemoglobin 11.1, platelet count 443,000. Total protein 4.3, albumin 1.7. IMPRESSION: A 74-year-old white female with: 1. Widely metastatic colon cancer involving the colon, the adrenal glands, retroperitoneal adenopathy, lung, and brain. 2. Acute hypoxemic respiratory failure. 3. Atelectasis of the right lung. 4. Cardiomyopathy. 5. Severe protein calorie malnutrition. 6. Anasarca. 7. Hypotension/shock, requiring vasopressors. DISCUSSION: A 74-year-old with problems outlined above. She appears to be dying from her extensive disease. She continues to return to the hospital with worsening status. Her prognosis is dismal. PLAN: 1. Initiate Mucomyst and BiPAP in an attempt to clear mucus plug from the right lung. This will only allow aeration of the right upper lobe given the known area of tumor obstructing the right middle lobe and right lower lobe. 2. Attempt to augment blood pressure with albumin. 3. Discussion with the family. Patient's prognosis is extremely poor. Aggressive interventions are not likely to change her outcome. cc: Todd Graves MD [facility]
[2019-05-18] MEDS: ATROVENT NEB INH SCH ×5 (03:21→20:10)
[2019-05-18] MEDS: XOPENEX NEB INH SCH ×5 (03:21→20:10)
[2019-05-18 04:57] LABS: ALLEN TEST YES; BLOOD TYPE ARTERIAL; HCO3-(ACT) 20.2 mmoll (20.0-26.0); METHB 1.6 % (0.0-1.5); O2(CT) 11.5 mL/dL (15.0-23.0); O2HB 91.6 % (95.0-99.0); PCO2(98.6) 29 mmHg (35-45); PO2(98.6) 60 mmHg (60-100); SAMPLE BLOOD; THB 8.9 g/dL (11.5-17.4)
[2019-05-18 05:00] LABS: MODALITY BI PAP
[2019-05-18] MEDS: DECADRON IV SCH ×3 (05:23→22:14)
[2019-05-18] MEDS: NS 1,000 ML IV SCH ×3 (05:51→18:18)
[2019-05-18 05:56] LABS: BASO# 0.02 X1000 (0.0-0.2); BASO% 0.1 % (0.0-0.8); HEMATOCRIT 27.9 % (37.0-47.0); HEMOGLOBIN 8.7 g/dL (12.0-16.0); IMM GRAN# 0.23 X1000 (0.0-0.04); IMM GRAN% 1.1 % (0.0-0.5); LYMPH# 0.28 X1000 (1.2-3.4); LYMPH% 1.3 % (20.5-51.1); MCH 24.4 PG (27-31); MCHC 31.2 g/dL (33-37); MCV 78.4 FL (81-99); MONO# 0.97 X1000 (0.11-0.59); MONO% 4.6 % (1.7-9.3); NEUT# 19.57 X1000 (1.4-6.5); NEUT% 92.9 % (42.2-75.2); PLT 198 X1000 (130-400); RBC 3.56 XMIL (4.2-5.4); RDW 19.8 % (11.5-14.5); WBC 21.07 X1000 (4.8-10.8)
[2019-05-18 06:26] LABS: ALB/GLOB RATIO 1.4; ALBUMIN 2.8 g/dL (3.5-5.0); CREATININE 1.1 mg/dL (0.5-0.9); MAGNESIUM 1.6 mg/dL (1.5-2.7); POTASSIUM 3.4 mmol/L (3.5-5.1); TOTAL BILIRUBIN 0.4 mg/dL (0.20-1.00); TOTAL PROTEIN 4.8 g/dL (6.3-8.3)
--- NOTE | 2019-05-18 06:26 | Diag Imaging Result Doc PS360 ---
EXAM: CHEST-PORTABLE HISTORY: abnormal exam TECHNIQUE: Single view COMPARISON: 05/17/2019 FINDINGS: The left lung is well expanded. Nodular densities throughout the left lung are unchanged. Partial reexpansion of the right lung although near complete opacification of the right hemithorax remains. No change in the left PICC line. IMPRESSION: Interval improvement Electronically signed by Warren Alberto 05/18/2019 6:24 AM
[2019-05-18 06:55] LABS: BANDS 12 % (0-1); SEGS 82 % (42-75)
[2019-05-18 06:56] LABS: ANISOCYTOSIS 1+; HYPOCHROM 1+; LYMPHS 2 % (21-51); MONO 4 % (1-9)
[2019-05-18 06:57] LABS: POIKILOCYTOSIS 1+
[2019-05-18] MEDS: SYNTHROID PO SCH (07:07)
[2019-05-18] MEDS: MUCOMYST 20% INH SCH ×2 (07:41→20:10)
[2019-05-18] MEDS: PULMICORT INH SCH ×2 (07:41→20:11)
[2019-05-18] MEDS ORDERED: POTASSIUM CHLORIDE 40 MEQ/SWI 40 MEQ/100 ML IVPB IV ONE (07:44)
--- NOTE | 2019-05-18 08:34 | PROGRESS NOTE ---
DATE: 05/18/2019 SUBJECTIVE: Ms. Edmonds is on BiPAP. She is more comfortable. The family has discussed with Dr. Graves. I think the goal is to get her home with hospice. She has some mucous plugging on the right side. OBJECTIVE: Vital Signs: Temperature 97.8 degrees, pulse 100, respirations 20, blood pressure 121/61. HEENT: Pupils are equal and round. Lungs: Clear in all lung woodward. Cardiovascular: Regular rhythm and rate without murmur or S3. Abdomen: Soft. Skin: Warm and dry. Urine output is 3500 mL. LABORATORY DATA: Blood sugar 189, 238, 144. Chest x-ray: Interval improvement in left lung, that was from yesterday evening. Lungs well expanded. Nodular densities throughout the left lung, unchanged. Partial re-expansion of the right lung, although near-complete opacification of the right hemothorax remains, PICC line in the left. ASSESSMENT AND PLAN: 1. Widely metastatic colon cancer involving the colon, adrenal glands, retroperitoneal adenopathy, lung and brain. 2. Acute hypoxemic respiratory failure. 3. Atelectasis of the right lung, suspect mucus plugging. 4. Cardiomegaly. 5. Severe protein calorie malnutrition. 6. Anasarca. 7. Hypotension shock requiring vasopressors. Appreciate Dr. Graves's help. The patient appears to be dying from extensive disease and worsening status. Prognosis is very poor. She is on Mucomyst and BiPAP, trying to clear mucus plug from right lung. On discussion with family. I think they would like to pursue going home with hospice. 8. History of hypothyroidism. Continue levothyroxine. 9. Diabetes mellitus type 2. Follow pattern sugars. 10. Hyperlipidemia. 11. Hypertension. Note the blood sugars are back to normal. They were running low. Her white blood cell count has come down some from 38,000 to 21,070, hematocrit is 27, hemoglobin 8.7, platelet count 198,000. Sodium 139, potassium 3.4, chloride 106, BUN 40, creatinine 1.1. AST was 22, ALT was 40. Blood sugars 238, 146, 172 and 144. We will supplement her potassium. Continue vancomycin and Zosyn. cc: Carson Garnica MD
[2019-05-18] MEDS: ASPIRIN EC PO SCH (10:15)
[2019-05-18] MEDS: COREG PO SCH ×2 (10:15→22:14)
[2019-05-18] MEDS: ISORDIL PO SCH ×3 (10:15→16:44)
[2019-05-18] MEDS: VITAMIN B-12 PO SCH (10:17)
[2019-05-18] MEDS: MIRALAX PO SCH (10:17)
[2019-05-18 12:58] LABS: CALCIUM 9.5 mg/dL (8.8-10.2)
--- NOTE | 2019-05-18 13:25 | PULMONOLOGY PROGRESS NOTE ---
DATE: 05/18/2019 SUBJECTIVE: The patient is poorly responsive. She appears comfortable on the BiPAP device. She was on Levophed, but that has been discontinued. OBJECTIVE: Vital Signs: Blood pressure 119/63, heart rate 95, respiratory rate 21, oxygen saturation 100%. HEENT: Pupils are equal. There is bitemporal wasting. Oropharynx is dry, but clear. Neck: Supple. Chest: Diminished breath sounds throughout the right lung. Cardiac: Increased rate. Regular rhythm. Abdomen: Soft and without bowel sounds. Extremities: Generalized edema. IMAGING AND LABORATORY DATA: Chest x-ray reveals partial expansion of the right lung. White blood count 21,000, hemoglobin 8.7, platelet count 198,000. Sodium 139, potassium 3.4, chloride 106, bicarbonate 16, BUN 40, creatinine 1.1. Arterial blood gas reveals pH 7.40, pCO2 of 29, PO2 of 60 on BiPAP. IMPRESSION: A 74-year-old with: 1. Widely metastatic stage IV colon cancer with a significant amount of tumor burden. 2. Acute hypoxemic respiratory failure. 3. Atelectasis and pleural effusion involving the right lung. 4. Cardiomegaly and cardiomyopathy. 5. Severe protein calorie malnutrition. 6. Anasarca. PLAN: 1. Continue current treatment regimen. 2. Continue comfort measures. 3. After discussion with the family, they would like to transition Ms. Edmonds home, and avoid intubation and aggressive resuscitation. This will be arranged as soon as possible. TIME SPENT: Time spent in critical care management with the patient and family was 35 minutes. cc: Todd Graves MD
[2019-05-18] MEDS: ZOCOR PO SCH (22:14)
[2019-05-18] MEDS: VANCOMYCIN 1,500 MG in NS 250 ML IV SCH (22:14)
[2019-05-19] MEDS: ATROVENT NEB INH SCH ×5 (00:06→15:42)
[2019-05-19] MEDS: XOPENEX NEB INH SCH ×5 (00:06→15:42)
[2019-05-19] MEDS: ULTRAM PO PRN ×2 (01:19→15:36)
[2019-05-19] MEDS: KLONOPIN PO PRN (01:19)
[2019-05-19] MEDS: ZOSYN 3.375 GM in NS 50 ML IV SCH ×3 (05:47→15:21)
[2019-05-19] MEDS: NS 1,000 ML IV SCH (05:47)
[2019-05-19] MEDS: DECADRON IV SCH ×2 (05:48→13:31)
[2019-05-19] MEDS: SYNTHROID PO SCH (06:41)
[2019-05-19 06:58] LABS: BASO# 0.02 X1000 (0.0-0.2); BASO% 0.1 % (0.0-0.8); HEMATOCRIT 25.5 % (37.0-47.0); HEMOGLOBIN 7.9 g/dL (12.0-16.0); IMM GRAN# 0.47 X1000 (0.0-0.04); IMM GRAN% 1.8 % (0.0-0.5); LYMPH# 0.24 X1000 (1.2-3.4); LYMPH% 0.9 % (20.5-51.1); MCH 24.5 PG (27-31); MCV 79.2 FL (81-99); MONO# 0.81 X1000 (0.11-0.59); MONO% 3.1 % (1.7-9.3); MPV 9.1 FL (7.4-10.4); NEUT% 94.1 % (42.2-75.2); PLT 200 X1000 (130-400); RBC 3.22 XMIL (4.2-5.4); RDW 20.4 % (11.5-14.5); WBC 26.14 X1000 (4.8-10.8)
[2019-05-19 07:26] LABS: AGAP 16; ALB/GLOB RATIO 1.5; ALBUMIN 2.3 g/dL (3.5-5.0); ALKALINE PHOSPHATASE 170 U/L (32-104); BUN 44 mg/dL (8-22); CHLORIDE 112 mmol/L (98-107); COSMO 297; CREATININE 0.9 mg/dL (0.5-0.9); ESTIMATED GFR > 60; GLUCOSE 155 mg/dL (70-104); GOT 20 U/L (10-30); GPT 36 U/L (10-36); MAGNESIUM 1.4 mg/dL (1.5-2.7); POTASSIUM 3.3 mmol/L (3.5-5.1); SODIUM 142 mmol/L (136-145); TCO2 14 mmol/L (25-35); TOTAL BILIRUBIN 0.43 mg/dL (0.20-1.00); TOTAL PROTEIN 3.8 g/dL (6.3-8.3)
[2019-05-19] MEDS: PULMICORT INH SCH (07:31)
[2019-05-19] MEDS: MUCOMYST 20% INH SCH (07:31)
--- NOTE | 2019-05-19 07:33 | EKG Report ---
Test Performed on : 05/17/2019 2:13:01 PM Test Reason : NO EKG ORDER FOR MUSE Blood Pressure : / mmHG Vent. Rate : 142 BPM Atrial Rate : 117 BPM P-R Int : 000 ms QRS Dur : 122 ms QT Int : 326 ms P-R-T Axes : 000 -62 125 degrees QTc Int : 501 ms Atrial fibrillation. with rapid ventricular response. Left axis deviation Possible Lateral infarct , age undetermined Abnormal ECG When compared with ECG of 16-MAY-2019 08:34, (Unconfirmed) Atrial fibrillation. has replaced Sinus rhythm. ST now depressed in Lateral leads Unconfirmed Result
[2019-05-19 08:02] LABS: BANDS 10 % (0-1); LYMPHS 4 % (21-51); SEGS 86 % (42-75)
[2019-05-19 08:03] LABS: CALCIUM 7.1 mg/dL (8.8-10.2)
[2019-05-19] MEDS: ASPIRIN EC PO SCH (10:11)
[2019-05-19] MEDS: ISORDIL PO SCH ×3 (10:11→16:56)
[2019-05-19] MEDS: VITAMIN B-12 PO SCH (10:11)
[2019-05-19] MEDS: COREG PO SCH (10:12)
[2019-05-19] MEDS: MIRALAX PO SCH (10:13)
[2019-05-19] MEDS ORDERED: SANTYL OINT TOP SCH (13:30)
[2019-05-19] MEDS ORDERED: NS 1,000 ML IV SCH (13:30)
--- NOTE | 2019-05-19 14:00 | PROGRESS NOTE ---
DATE: 05/19/2019 SUBJECTIVE: Ms. Edmonds is feeling better. Her breathing is a little better. They want to discuss the plan with Dr. Lange. is asking whether they should pursue treatment or not versus go with comfort care with hospice. OBJECTIVE: Temperature 98.1 degrees, pulse 90, respirations 17, blood pressure 118/73. Pupils are equal and round. Lungs are clear in all lung woodward. Cardiovascular Examination: Regular rhythm and rate without murmur or S3. Abdomen is soft. Skin is warm and dry. ASSESSMENT AND PLAN: 1. Widely metastatic stage IV colon cancer with significant amount of tumor burden. 2. Acute hypoxemic respiratory failure. 3. Atelectasis, pleural effusion involving the right lung. Suspect some mucus plugs in the right side as well. 4. Cardiomegaly and cardiomyopathy. 5. Severe protein calorie malnutrition. 6. Anasarca. 7. Hypotension, which is resolved. Continue present fluid. 8. Dr. Graves has discussed with family and I have talked with family as well. I want them to have that discussion with Dr. Lange and decide whether to pursue hospice with comfort care. REVIEW OF THE ORDERS: I will decrease the IV fluids at this point. She is on vancomycin and Zosyn. cc: Carson Garnica MD
[2019-05-19 16:55] VITALS: BP 128/59
--- NOTE | 2019-05-19 17:49 | DISCHARGE SUMMARY ---
ADMISSION DATE: 05/16/2019 DISCHARGE DATE: 05/19/2019 She is a patient of Dr. Jasmeet Martinez. This 74-year-old who presented from [facility] apparently yesterday was eating good and feeling pretty good and then the day of admission, on 05/16/2019, very lethargic and poorly responsive. Her sugars dropped down in the 20s. Denied any fever or chills or pleuritic pain or gross hematuria. Placed a Limon catheter, put her on O2. PAST MEDICAL HISTORY: 1. New diagnosis of metastatic lung cancer stage IV. Actually, it is probably GI primary with metastatic disease to the lungs. She has had some radiation treatments, planning to start her on chemotherapy the next week. The family and the patient wanted everything done at that point. 2. Diabetes mellitus type 2. 3. Hyperlipidemia. 4. Hypertension. 5. Steroid-induced hyperglycemia. PAST SURGICAL HISTORY: 1. Adenoidectomy. 2. Bronchoscopy. 3. Colonoscopy with biopsy. ADMISSION DIAGNOSES: 1. Hypoglycemia. 2. Metabolic encephalopathy secondary to hypoglycemia. We checked her lab and electrolytes, and white count was elevated at 38,940, hematocrit 32, platelet count 429,000. Chemistries: She had sodium of 139, potassium 4.3, chloride 104, BUN 44, creatinine 1.0. The patient had a head CT done without contrast, no acute disease or change from prior exam. She had a followup chest x-ray on 05/17/2019. We had put in the left-sided PICC line, which was in good placement. Lungs interval worsening. Her initial chest x-ray did show some improved lung volumes from comparison on 05/12/2019, persistent opacification of the right lung base, mostly pleural effusion, stable cardiomegaly, pulmonary vascular congestion, hazy central interstitial infiltrate bilaterally compatible with pulmonary edema. Dr. Graves evaluated widely metastatic colon cancer involving colon, adrenal glands, retroperitoneal adenopathy, lung and brain, acute hypoxemic respiratory failure, atelectasis in the right lung, cardiomegaly, severe protein calorie malnutrition, anasarca, hypotension, shock and was on vasopressors. We were able to wean her off of the vasopressors, but Dr. Graves and I had long talks with the family, and they wanted to pursue going home with hospice treatment. We were able to talk to Dr. Lange, and so we will get her set up to go home with supplementary oxygen, and she can take Tylenol as needed, aspirin 81 mg a day, Pulmicort 0.5 mg inhalation b.i.d., Coreg 3.125 mg b.i.d., Klonopin 0.5 mg b.i.d. p.r.n., vitamin B12 1000 mcg p.o. daily, Decadron I believe she was taking at home but she will continue that. We will see about the Atrovent. The Isordil was 20 mg p.o. t.i.d., Synthroid 137 mcg daily. We had put her on vancomycin and piperacillin, but we will stop that. MiraLAX 17 g daily, Zocor 20 mg at bedtime. I think we can stop the Zocor. Ultram 50 mg q.6 hours p.r.n. She is taking Coreg 3.125 mg b.i.d., and I think we ought to stop the glipizide to keep her from having low sugars. She was on Lantus insulin 40 units q.a.m. and 20 units in the evening. I think we ought to stop those as well as she was having trouble with low sugars, Isordil 20 mg tablet t.i.d. She had taken Xyzal 5 mg daily, antihistamine, levothyroxine 137 mcg p.o. daily, MiraLAX 17 g p.o. daily, simvastatin I think we can stop, tramadol 50 mg q.6 hours p.r.n. We will send her home with hospice care. cc: Carson Garnica MD
== END 2019-05-19 18:13 | disposition hospice, home (50) | DRG 637 ==
LOC: SUPCPDRO → ED 07:23 → 2N 11:08 → ICU 22:18 → 3N 05-18 16:28
PROVIDERS: ATTEND Emergency Medicine